=== PATIENT | male | born 1975 | race African-American/Black ===

== ENCOUNTER 2016-02-15 09:38 | Emergency (ER) | payer MEDICARE, MEDICAID ==
--- NOTE | 2016-02-15 10:36 | ER Document Report ---
ED General - General Chief Complaint: Wrist Pain Stated Complaint: LEFT WRIST PAIN,TIGHTNESS IN THROAT Time seen by provider: 10:31 Mode of Arrival: Ambulatory Information source: Patient Notes: This is a 41-year-old man with a history of obstructive sleep apnea (CPAP), left wrist cyst removal (January 09), GERD, "learning disability". The patient states he's been followed by ENT in the past because of a "narrow airway " originating from problems when he was a child. Patient presents with a few complaints: First he complains of left wrist pain after this cyst removal. He states he is not been able to get into in his orthopedic doctor's office (Dr. Kumari). He denies any fever, chills, increased swelling or redness of the left wrist. He states that he is just had a lot of pain after the surgery and he ran out of medicines. The patient's next complaint is that his reflux has been worse after eating wings 3 days ago. He states that he feels like he has "tightness in his throat". He states he went to his ENT doctor's office ( [facility]) and found out that the doctor had moved. Patient also complains of nasal congestion. Patient denies any difficulty breathing, wheezing, dyspnea on exertion or chest pain. He denies any exertional fatigue, any arm pain other than the direct left wrist pain. TRAVEL OUTSIDE OF THE [place] IN LAST 30 DAYS: No - HPI Onset: Last week Onset/Duration: Gradual Quality of pain: Dull Severity: Moderate Pain Level: 2 Associated symptoms: denies: Chills, Nonproductive cough, Productive cough, Fever, Shortness of breath Exacerbated by: Denies Relieved by: Denies Similar symptoms previously: Yes Recently seen / treated by doctor: Yes - Related Data Allergies/Adverse Reactions: morphine Allergy (Intermediate, Verified 02/15/16 09:57) Facial swelling diphenhydramine [From Benadryl] Allergy (Verified 02/15/16 09:57) divalproex sodium [From Depakote] Allergy (Verified 02/15/16 09:57) levetiracetam [From Keppra] Allergy (Verified 02/15/16 09:57) Hives meperidine [From Demerol] Allergy (Verified 02/15/16 09:57) Penicillins Allergy (Verified 02/15/16 09:57) red dye Allergy (Verified 02/15/16 09:57) yellow dye Allergy (Verified 02/15/16 09:57) pine Allergy (Uncoded 02/15/16 09:57) Past Medical History - General Information source: Patient - Social History Smoking Status: Current Every Day Smoker Cigarette use (# per day): No Chew tobacco use (# tins/day): No Frequency of alcohol use: Occasional Drug Abuse: None Lives with: Family Family History: None - adopted Patient has suicidal ideation: No Patient has homicidal ideation: No - Past Medical History Cardiac Medical History: Denies: Hx Coronary Artery Disease, Hx Heart Attack, Hx Hypertension Pulmonary Medical History: Reports: Hx Pneumonia - INFANT X7 Denies: Hx Asthma, Hx Bronchitis, Hx COPD Neurological Medical History: Reports: Hx Migraine. Denies: Hx Cerebrovascular Accident, Hx Seizures - CONVULSIONS DISORDER GI Medical History: Reports: Hx Gastroesophageal Reflux Disease. Denies: Hx Hepatitis, Hx Hiatal Hernia, Hx Ulcer Musculoskeltal Medical History: Denies Hx Arthritis, Reports Hx Musculoskeletal Trauma Psychiatric Medical History: Reports: Hx Depression Infectious Medical History: Denies: Hx Hepatitis Past Surgical History: Reports: Hx Orthopedic Surgery - left foot, left wrist, ganglion cyst. Denies: Hx Open Heart Surgery, Hx Pacemaker - Immunizations Immunizations up to date: Yes Hx Diphtheria, Pertussis, Tetanus Vaccination: Yes Review of Systems - Review of Systems Constitutional: See HPI EENT: See HPI Cardiovascular: No symptoms reported Respiratory: No symptoms reported Gastrointestinal: See HPI Genitourinary: No symptoms reported Male Genitourinary: No symptoms reported Musculoskeletal: See HPI Skin: No symptoms reported Hematologic/Lymphatic: No symptoms reported Neurological/Psychological: No symptoms reported Physical Exam - Vital signs Vitals: Temp Pulse Resp BP Pulse Ox 97.9 F 65 18 111/71 99 02/15/16 09:58 02/15/16 09:58 02/15/16 09:58 02/15/16 09:58 02/15/16 09:58 Notes: Physical exam: GENERAL: 41-year-old man, alert and oriented 3, on the phone and discussion when I enter the room: He does not appear in any significant distress. He appears comfortable. He is pleasant and cooperative. HEAD: Atraumatic, normocephalic. EYES: Pupils equal round and reactive to light, extraocular movements intact, sclera anicteric, conjunctiva are normal. ENT: Nares with some congestion, oropharynx clear without exudates. There is no obvious swelling in the back of the throat. There is no trismus. Moist mucous membranes. NECK: No stridor. Normal range of motion, supple without lymphadenopathy or JVD. LUNGS: Breath sounds clear to auscultation bilaterally and equal. No wheezes rales or rhonchi. HEART: Regular rate and rhythm without murmurs, rubs or gallops. ABDOMEN: Soft, nontender, normoactive bowel sounds. No guarding, no rebound. No masses appreciated. EXTREMITIES: Normal range of motion, no pitting or edema. No clubbing or cyanosis. Left wrist scar dorsally is dry and intact, fully healed. There is no erythema or significant swelling or crepitus over the area. NEUROLOGICAL: Cranial nerves II through XII grossly intact. Normal speech, normal gait. PSYCH: Normal mood, normal affect. SKIN: Warm, Dry, normal turgor, no rashes or lesions noted. Course - Re-evaluation Re-evalutation: 02/15/16 10:36 Plan: Regarding the left wrist: I'll give him some short-term pain medicine until he can get into the office of the orthopedic doctor. Regarding the reflux: He is already on omeprazole and I have advised him to follow-up with dad and he is going to avoid spicy foods. He will follow-up with his primary care doctor (Dr. Andrew). Regarding his congestion: I will prescribe him some Flonase - Vital Signs Vital signs: Temp Pulse Resp BP Pulse Ox 98.0 F 59 L 14 113/68 100 02/15/16 11:11 02/15/16 11:11 02/15/16 11:11 02/15/16 11:11 02/15/16 11:11 Discharge - Discharge Clinical Impression: left wrist pain, congestion, reflux Condition: Stable Disposition: HOME, SELF-CARE Instructions: Oral Narcotic Medication ([facility]) Additional Instructions: Recommendations: #1 take the pain medicine as needed. Follow-up with your orthopedic doctor as planned. #2 take the Flonase as prescribed. Follow-up with a new ENT doctor. Here is the number of an ENT office. They do have an office in town: Call the office in [place] to get an appointment here in [facility]. [facility] [address] [place] [address] Toll Free: #3 avoid fried fatty foods, and spicy foods. #4 follow-up with your primary care doctor in the next few days. Return to the emergency room for any worsening reflux, worsening throat symptoms , worsening wrist pain, fever, chills, nausea vomiting. Prescriptions: Hydrocodone/Acetaminophen [[place] 5-325 mg Tablet] 1 tab PO Q6HP PRN #25 tablet PRN Reason: Fluticasone Propionate [Flonase Nasal [place] 50 Mcg/[place] 16 gm] 1 spray NASL Q12 #1 inhaler Referrals: GUERO BRIAN MD [Primary Care Provider] - Follow up as needed
[2016-02-15 11:16] VITALS: BP 113/68
== END 2016-02-15 11:15 | disposition home or self-care (01) ==
LOC: ER 09:38
DX: M25.532 Pain in left wrist (principal); R09.81 Nasal congestion; K21.9 Gastro-esophageal reflux disease without esophagitis; G47.33 Obstructive sleep apnea (adult) (pediatric); F17.210 Nicotine dependence, cigarettes, uncomplicated
CPT/HCPCS: 99283

== ENCOUNTER → 2016-03-14 | Outpatient (CLI) | payer MEDICARE, MEDICAID | LOC: OD 08:52 | PROVIDERS: ATTEND Internal Medicine | DX: R07.9 Chest pain, unspecified (principal) | CPT/HCPCS: 71020; 71120 ==

== ENCOUNTER 2016-05-01 08:30 | Emergency (ER) | payer MEDICARE, MEDICAID ==
[2016-05-01 08:38] VITALS: BP 114/75
--- NOTE | 2016-05-01 09:06 | ER Document Report ---
HPI - HPI Patient complains to provider of: dental pain Onset: Other - 4 days Onset/Duration: Persistent Quality of pain: Achy Pain Level: 4 Context: Patient reports a four-day history of dental pain. Patient denies any fever or significant facial swelling. Patient states he does have an appointment in 2 weeks with the dentist. Associated Symptoms: Other - Dental pain Exacerbated by: Denies Relieved by: Denies Similar symptoms previously: Yes Recently seen / treated by doctor: No - ROS ROS below otherwise negative: Yes Systems Reviewed and Negative: Yes All other systems reviewed and negative - CONSTITUTIONAL Constitutional: DENIES: Fever, Chills - EENT Notes: Dental pain - RESPIRATORY Respiratory: DENIES: Trouble Breathing, Coughing - GASTROINTESTINAL Gastrointestinal: DENIES: Nausea, Patient vomiting - REPRODUCTIVE Reproductive: DENIES: : - MUSCULOSKELETAL Musculoskeletal: DENIES: Back Pain, Neck Pain - DERM Skin Color: Normal Skin Problems: None Past Medical History - General Information source: Patient - Social History Smoking Status: Current Every Day Smoker Chew tobacco use (# tins/day): No Frequency of alcohol use: None Drug Abuse: None Occupation: none Family History: None - adopted Patient has suicidal ideation: No Patient has homicidal ideation: No - Past Medical History Cardiac Medical History: Denies: Hx Coronary Artery Disease, Hx Heart Attack, Hx Hypertension Pulmonary Medical History: Reports: Hx Pneumonia - X7 Denies: Hx Asthma, Hx Bronchitis, Hx COPD Neurological Medical History: Reports: Hx Migraine. Denies: Hx Cerebrovascular Accident, Hx Seizures - CONVULSIONS DISORDER Renal/ Medical History: Denies: Hx Peritoneal Dialysis GI Medical History: Reports: Hx Gastroesophageal Reflux Disease. Denies: Hx Hepatitis, Hx Hiatal Hernia, Hx Ulcer Musculoskeltal Medical History: Denies Hx Arthritis, Reports Hx Musculoskeletal Trauma Psychiatric Medical History: Reports: Hx Depression Infectious Medical History: Denies: Hx Hepatitis Past Surgical History: Reports: Hx Orthopedic Surgery - left foot, left wrist, ganglion cyst - Immunizations Immunizations up to date: Yes Hx Diphtheria, Pertussis, Tetanus Vaccination: Yes Vertical Provider Document - CONSTITUTIONAL Agree With Documented VS: Yes Exam Limitations: No Limitations General Appearance: WD/WN, No Apparent Distress - INFECTION CONTROL TRAVEL OUTSIDE OF THE [place] IN LAST 30 DAYS: No - HEENT HEENT: Atraumatic, Normocephalic. negative: Pharyngeal Exudate, Pharyngeal Tenderness, Pharyngeal Erythema, Tympanic Membrane Red, Tympanic Membrane Bulging Mouth Diagram: 1 - Dental decay with fracture, no gingival swelling, no trismus, no concern for abscess - NECK Neck: Normal Inspection, Supple, Other - No sublingual or submental swelling. negative: Lymphadenopathy-Left, Lymphadenopathy-Right - RESPIRATORY Respiratory: Breath Sounds Normal, No Respiratory Distress, Chest Non-Tender O2 Sat by Pulse Oximetry: 100 - CARDIOVASCULAR Cardiovascular: Regular Rate, Regular Rhythm, No Murmur - BACK Back: Normal Inspection - MUSCULOSKELETAL/EXTREMETIES Musculoskeletal/Extremeties: MAEW - NEURO Level of Consciousness: Awake, Alert, Appropriate Motor/Sensory: No Motor Deficit - DERM Integumentary: Warm, Dry, No Rash Course - Vital Signs Vital signs: Temp Pulse Resp BP Pulse Ox 97.9 F 63 14 114/75 100 05/01/16 08:37 05/01/16 08:37 05/01/16 08:37 05/01/16 08:37 05/01/16 08:37 Discharge - Discharge Clinical Impression: Toothache Condition: Stable Disposition: HOME, SELF-CARE Instructions: Oral Narcotic Medication ([facility]), Clindamycin ([facility]), Toothache ([facility] ) Additional Instructions: Return immediately for any new or worsening symptoms Followup with your dental care provider, call tomorrow to make a followup appointment Prescriptions: Clindamycin HCl [Cleocin 300 mg Capsule] 300 mg PO TID #21 capsule Hydrocodone/Acetaminophen [[place] 5-325 Tablet] 1 each PO Q4 PRN #12 tablet PRN Reason: Referrals: [facility] [Provider Group] - Follow up as needed
== END 2016-05-01 09:13 | disposition home or self-care (01) ==
LOC: ER 08:30
DX: K08.9 Disorder of teeth and supporting structures, unspecified (principal); F17.200 Nicotine dependence, unspecified, uncomplicated; K21.9 Gastro-esophageal reflux disease without esophagitis
CPT/HCPCS: 99282

== ENCOUNTER → 2016-05-23 | Outpatient (CLI) | payer MEDICARE, MEDICAID | LOC: RAD 18:48 | PROVIDERS: ATTEND Specialist | DX: R56.9 Unspecified convulsions (principal) | CPT/HCPCS: 70553; A9577 ==

== ENCOUNTER 2016-08-05 12:49 | Emergency (ER) | payer MEDICARE, MEDICAID ==
[2016-08-05 13:09] VITALS: BP 105/56
== END 2016-08-05 13:10 | disposition left against medical advice (07) ==
LOC: ER 12:49
DX: Z53.21 Procedure and treatment not carried out due to patient leaving prior to being seen by health care provider (principal)

== ENCOUNTER 2016-10-18 08:35 | Emergency (ER) | payer MEDICARE, MEDICAID ==
[2016-10-18] MEDS ORDERED: CLINDAMYCIN HCL 150 MG CAPSULE PO ONE (09:32)
[2016-10-18] MEDS ORDERED: ACETAMINOPHEN 325 MG TABLET PO ONE (09:32)
--- NOTE | 2016-10-18 09:35 | ER Document Report ---
HPI - HPI Patient complains to provider of: Dental pain Onset: Other Onset/Duration: Persistent - 3 days Quality of pain: Achy Pain Level: 4 Context: Patient complains of dental pain to left upper jaw for the past 3 days. Patient states he has an appointment in 8 days to see the dentist. Patient denies any fever or facial swelling. Associated Symptoms: Headache, Other - Dental pain Exacerbated by: Denies Relieved by: Denies Similar symptoms previously: Yes Recently seen / treated by doctor: No - ROS ROS below otherwise negative: Yes Systems Reviewed and Negative: Yes All other systems reviewed and negative - CONSTITUTIONAL Constitutional: DENIES: Fever, Chills - EENT Notes: Dental pain - NEURO Neurology: REPORTS: Headache - RESPIRATORY Respiratory: DENIES: Coughing - GASTROINTESTINAL Gastrointestinal: DENIES: Nausea, Patient vomiting - REPRODUCTIVE Reproductive: DENIES: : - MUSCULOSKELETAL Musculoskeletal: DENIES: Back Pain, Neck Pain - DERM Skin Color: Normal Skin Problems: None Past Medical History - General Information source: Patient - Social History Smoking Status: Current Every Day Smoker Frequency of alcohol use: Rare Drug Abuse: None Occupation: None Family History: None - adopted Patient has suicidal ideation: No Patient has homicidal ideation: No - Past Medical History Cardiac Medical History: Denies: Hx Coronary Artery Disease, Hx Heart Attack, Hx Hypertension Pulmonary Medical History: Reports: Hx Pneumonia - X7 Denies: Hx Asthma, Hx Bronchitis, Hx COPD Neurological Medical History: Reports: Hx Migraine. Denies: Hx Cerebrovascular Accident, Hx Seizures - CONVULSIONS DISORDER Renal/ Medical History: Denies: Hx Peritoneal Dialysis GI Medical History: Reports: Hx Gastroesophageal Reflux Disease. Denies: Hx Hepatitis, Hx Hiatal Hernia, Hx Ulcer Musculoskeltal Medical History: Denies Hx Arthritis, Reports Hx Musculoskeletal Trauma Psychiatric Medical History: Reports: Hx Depression Infectious Medical History: Denies: Hx Hepatitis Past Surgical History: Reports: Hx Orthopedic Surgery - left foot, left wrist, ganglion cyst. Denies: Hx Open Heart Surgery, Hx Pacemaker - Immunizations Immunizations up to date: Yes Hx Diphtheria, Pertussis, Tetanus Vaccination: Yes Vertical Provider Document - CONSTITUTIONAL Agree With Documented VS: Yes Exam Limitations: No Limitations General Appearance: WD/WN, No Apparent Distress - INFECTION CONTROL TRAVEL OUTSIDE OF THE [place] IN LAST 30 DAYS: No - HEENT HEENT: Atraumatic, Normocephalic. negative: Pharyngeal Exudate, Pharyngeal Tenderness, Pharyngeal Erythema, Tympanic Membrane Red, Tympanic Membrane Bulging Mouth Diagram: 1 - Tenderness, mild swelling to gingiva, no drainable abscess, no trismus, no sublingual or submental swelling - NECK Neck: Normal Inspection, Supple. negative: Lymphadenopathy-Left, Lymphadenopathy-Right Notes: No meningismus - RESPIRATORY Respiratory: Breath Sounds Normal, No Respiratory Distress - CARDIOVASCULAR Cardiovascular: Regular Rate, Regular Rhythm, No Murmur - MUSCULOSKELETAL/EXTREMETIES Musculoskeletal/Extremeties: MAEW - NEURO Level of Consciousness: Awake, Alert, Appropriate Motor/Sensory: No Motor Deficit - DERM Integumentary: Warm, Dry, No Rash Discharge - Discharge Clinical Impression: Toothache Condition: Stable Disposition: HOME, SELF-CARE Instructions: Anti-Inflammatory Medication ([facility]), Clindamycin ([facility]), Toothache ([facility]) Additional Instructions: Return immediately for any new or worsening symptoms Followup with your primary care provider, call tomorrow to make a followup appointment Follow-up with your dental care provider, call today for an appointment Prescriptions: Clindamycin HCl [Cleocin 300 mg Capsule] 300 mg PO TID #21 capsule Naproxen [Naprosyn 250 Nmg Tablet] 1 tab PO BID #14 tablet Referrals: [facility] [Provider Group] - Follow up as needed GUERO BRIAN MD [Primary Care Provider] - Follow up as needed
[2016-10-18 09:52] VITALS: BP 110/65
== END 2016-10-18 09:52 | disposition home or self-care (01) ==
LOC: ER 08:35
DX: K08.89 Other specified disorders of teeth and supporting structures (principal); R68.84 Jaw pain; F17.200 Nicotine dependence, unspecified, uncomplicated
CPT/HCPCS: 99282; A9270 ×2

== ENCOUNTER 2016-10-24 08:24 | Emergency (ER) | payer MEDICARE, MEDICAID ==
--- NOTE | 2016-10-24 08:50 | ER Document Report ---
ED Hand/Wrist Injury - General Mode of Arrival: Ambulatory Information source: Patient TRAVEL OUTSIDE OF THE [place] IN LAST 30 DAYS: No - HPI Injury to: Wrist - left Onset: This morning Where: Home Timing: Still present - General Chief Complaint: Wrist Pain Stated Complaint: WRIST PAIN Time Seen by Provider: 10/24/16 08:34 Notes: Patient is a 41 year old male who presents to the ED with complaints of left wrist pain secondary to bumping it this morning. Patient states that he had a ganglion cyst removed on 01/10/2016 and has had issues ever since. Patient states he has a follow up with his surgeon on Saturday (10/31/16) to discuss why he is still having problems with it. (ZORA LIZ) - Related Data Allergies/Adverse Reactions: morphine Allergy (Intermediate, Verified 10/24/16 08:27) Facial swelling diphenhydramine [From Benadryl] Allergy (Verified 10/24/16 08:27) divalproex sodium [From Depakote] Allergy (Verified 10/24/16 08:27) levetiracetam [From Keppra] Allergy (Verified 10/24/16 08:27) Hives meperidine [From Demerol] Allergy (Verified 10/24/16 08:27) Penicillins Allergy (Verified 10/24/16 08:27) red dye Allergy (Verified 10/24/16 08:27) yellow dye Allergy (Verified 10/24/16 08:27) pine Allergy (Uncoded 10/24/16 08:27) Past Medical History - General Information source: Patient - Social History Smoking Status: Current Some Day Smoker Cigarette use (# per day): Yes - 3 Chew tobacco use (# tins/day): No Frequency of alcohol use: Occasional Drug Abuse: None Family History: None - adopted - Past Medical History Cardiac Medical History: Denies: Hx Coronary Artery Disease, Hx Heart Attack, Hx Hypertension Pulmonary Medical History: Reports: Hx Pneumonia - INFANT X7 Denies: Hx Asthma, Hx Bronchitis, Hx COPD Neurological Medical History: Reports: Hx Migraine. Denies: Hx Cerebrovascular Accident. Comment Only: Hx Seizures - CONVULSIONS DISORDER Renal/ Medical History: Denies: Hx Peritoneal Dialysis GI Medical History: Reports: Hx Gastroesophageal Reflux Disease. Denies: Hx Hepatitis, Hx Hiatal Hernia, Hx Ulcer Musculoskeltal Medical History: Denies Hx Arthritis, Reports Hx Musculoskeletal Trauma Psychiatric Medical History: Reports: Hx Depression Infectious Medical History: Denies: Hx Hepatitis Past Surgical History: Reports: Hx Orthopedic Surgery - left foot, left wrist, ganglion cyst. Denies: Hx Open Heart Surgery, Hx Pacemaker - Immunizations Immunizations up to date: Yes Hx Diphtheria, Pertussis, Tetanus Vaccination: Yes Review of Systems - Review of Systems Constitutional: No symptoms reported EENT: No symptoms reported Cardiovascular: No symptoms reported Respiratory: No symptoms reported Gastrointestinal: No symptoms reported Genitourinary: No symptoms reported Male Genitourinary: No symptoms reported Musculoskeletal: See HPI, Joint pain - left wrist Skin: No symptoms reported Hematologic/Lymphatic: No symptoms reported Neurological/Psychological: No symptoms reported Physical Exam - General General appearance: Appears well, Alert, Other - talks like mouth is full of cotton, could be due to dental pain that he was seen in the ED for recently In distress: None - HEENT Head: Normocephalic, Atraumatic Eyes: Normal Extraocular movements intact: Yes Pupils: PERRL - Respiratory Respiratory status: No respiratory distress - Cardiovascular Rhythm: Regular - Abdominal Inspection: Normal Distension: No distension - Back Back: Normal - Extremities General upper extremity: Other - left wrist has keloid over old incision site, that is tender,tender more on tendons to the ulnar side of keloid, tender to palpate left wrist, tender to flex left wrist General lower extremity: Normal inspection, Normal ROM - Neurological Neuro grossly intact: Yes - Psychological Associated symptoms: Normal affect, Normal mood - Skin Skin Temperature: Warm Skin Moisture: Dry Skin Color: Normal - Vital signs Vitals: Temp Pulse Resp BP Pulse Ox 98.7 F 72 16 122/78 99 10/24/16 08:28 10/24/16 08:28 10/24/16 08:28 10/24/16 08:28 10/24/16 08:28 - Vital Signs Vital signs: Temp Pulse Resp BP Pulse Ox 98.7 F 72 16 122/78 99 10/24/16 08:28 10/24/16 08:28 10/24/16 08:28 10/24/16 08:28 10/24/16 08:28 Discharge - Discharge Clinical Impression: Contusion of left wrist Qualifiers: Encounter type: initial encounter Qualified Code(s): S60.212A - Contusion of left wrist, initial encounter Condition: Stable Disposition: HOME, SELF-CARE Additional Instructions: You have contused or crushed the extensor tendons on your left dorsal wrist. You should wear the splint to protect the wrist and prevent stretching of the tendons. You should elevate your hand above the heart all the time. You should use ice packs to the involved area off and on today. Continue the Naprosyn you were prescribed last week, if you run out you can buy Aleve [id number] which is the same medication. Follow-up with your orthopedic surgeon as you have planned. Scribe Attestation: 10/24/16 08:55 I personally performed the services described in the documentation, reviewed and edited the documentation which was dictated to the scribe in my presence, and it accurately records my words and actions. (SANDRA MAE) Scribe Documentation - Scribe Written by Farrukh:: farrukh Sousa, 10/24/2016, 0856 acting as scribe for :: Chuy
[2016-10-24] MEDS ORDERED: HYDROCODONE/ACETAMINOPHEN 5-325 MG 6 TAB/DSPK PO PRN (08:51)
[2016-10-24 09:13] VITALS: BP 120/75
== END 2016-10-24 09:13 | disposition home or self-care (01) ==
LOC: ER 08:24
DX: S60.212A Contusion of left wrist, initial encounter (principal); M25.532 Pain in left wrist; Z98.890 Other specified postprocedural states; F17.210 Nicotine dependence, cigarettes, uncomplicated; W22.8XXA Striking against or struck by other objects, initial encounter
CPT/HCPCS: 99283; L3908; A9270

== ENCOUNTER 2016-11-26 15:43 | Emergency (ER) | payer MEDICARE, MEDICAID ==
[2016-11-26] MEDS ORDERED: NORMAL SALINE 1000 ML 1,000 ML IV ONE (16:36)
--- NOTE | 2016-11-26 16:38 | ER Document Report ---
ED Medical Screen (RME) - General Chief Complaint: Abdominal Pain Stated Complaint: ABDOMINAL PAIN Time Seen by Provider: 11/26/16 16:35 Notes: Patient states he sees gastroenterology every couple of months for irritable bowel syndrome. Today when he saw them they felt that he may have appendicitis so he was referred to the emergency department. He has had right lower quadrant pain for 3 days with some decreased appetite. Some nausea but no vomiting or diarrhea. TRAVEL OUTSIDE OF THE [place] IN LAST 30 DAYS: No - Related Data Allergies/Adverse Reactions: morphine Allergy (Intermediate, Verified 11/26/16 15:48) Facial swelling diphenhydramine [From Benadryl] Allergy (Verified 11/26/16 15:48) divalproex sodium [From Depakote] Allergy (Verified 11/26/16 15:48) levetiracetam [From Keppra] Allergy (Verified 11/26/16 15:48) Hives meperidine [From Demerol] Allergy (Verified 11/26/16 15:48) Penicillins Allergy (Verified 11/26/16 15:48) red dye Allergy (Verified 11/26/16 15:48) yellow dye Allergy (Verified 11/26/16 15:48) pine Allergy (Uncoded 11/26/16 15:48) Past Medical History - Past Medical History Cardiac Medical History: Denies: Hx Coronary Artery Disease, Hx Heart Attack, Hx Hypertension Pulmonary Medical History: Reports: Hx Pneumonia - X7 Denies: Hx Asthma, Hx Bronchitis, Hx COPD Neurological Medical History: Reports: Hx Migraine. Denies: Hx Cerebrovascular Accident. Comment Only: Hx Seizures - CONVULSIONS DISORDER Renal/ Medical History: Denies: Hx Peritoneal Dialysis GI Medical History: Reports: Hx Gastroesophageal Reflux Disease. Denies: Hx Hepatitis, Hx Hiatal Hernia, Hx Ulcer Musculoskeltal Medical History: Denies Hx Arthritis, Reports Hx Musculoskeletal Trauma Psychiatric Medical History: Reports: Hx Depression Infectious Medical History: Denies: Hx Hepatitis Past Surgical History: Reports: Hx Orthopedic Surgery - left foot, left wrist, ganglion cyst. Denies: Hx Open Heart Surgery, Hx Pacemaker - Immunizations Immunizations up to date: Yes Hx Diphtheria, Pertussis, Tetanus Vaccination: Yes Physical Exam - Vital signs Vitals: Temp Pulse Resp BP Pulse Ox 98.1 F 83 20 115/70 95 11/26/16 15:48 10/16/17 15:48 11/26/16 15:48 11/26/16 15:48 11/26/16 15:48 Course - Vital Signs Vital signs: Temp Pulse Resp BP Pulse Ox 98.1 F 83 20 115/70 95 11/26/16 15:48 11/26/16 15:48 11/26/16 15:48 11/26/16 15:48 11/26/16 15:48
[2016-11-26 17:39] LABS: ABSOLUTE BASOPHILS # (AUTO) 0.1 10^3/uL (0.0-0.2); ABSOLUTE EOSINOPHILS # (AUTO) 0.1 10^3/uL (0.0-0.6); ABSOLUTE LYMPHOCYTES (AUTO) 1.9 10^3/uL (0.5-4.7); ABSOLUTE MONOCYTES (AUTO) 0.7 10^3/uL (0.1-1.4); ABSOLUTE NEUT (AUTO) 4.9 10^3/uL (1.7-8.2); BASOPHILS % (AUTO) 1.3 % (0-2); EOSINOPHILS % (AUTO) 1.4 % (0-6); HEMATOCRIT 47.3 % (37.9-51.0); HEMOGLOBIN 16.2 g/dL (13.5-17.0); HGB HCT DIFFERENCE 1.3; LYMPHOCYTES % (AUTO) 24.3 % (13-45); MEAN CORPUSCULAR HEMOGLOBIN 28.8 pg (27.0-33.4); MEAN CORPUSCULAR HGB CONC 34.3 g/dL (32.0-36.0); MEAN CORPUSCULAR VOLUME 84 fl (80-97); MONOCYTES % (AUTO) 8.9 % (3-13); RED BLOOD COUNT 5.65 10^6/uL (4.35-5.55); RED CELL DISTRIBUTION WIDTH 13.8 % (11.5-14.0); SEGMENTED NEUTROPHILS % (AUTO) 64.1 % (42-78); WHITE BLOOD COUNT 7.6 10^3/uL (4.0-10.5)
[2016-11-26 17:45] LABS: APPEARANCE,URINE CLEAR; BILIRUBIN,URINE NEGATIVE (NEGATIVE); GLUCOSE, URINE NEGATIVE (NEGATIVE); KETONES,URINE NEGATIVE (NEGATIVE); LEUKOCYTE ESTERASE,URINE NEGATIVE (NEGATIVE); NITRITE,URINE NEGATIVE (NEGATIVE); PROTEIN,URINE NEGATIVE (NEGATIVE); URINE SPECIFIC GRAVITY 1.011; UROBILINOGEN,URINE NEGATIVE mg/dL (<2.0)
[2016-11-26 17:55] LABS: ALANINE AMINOTRANSFERASE 60 U/L (21-72); ALBUMIN 4.8 g/dL (3.5-5.0); ALKALINE PHOSPHATASE 100 U/L (38-126); ANION GAP 12 (5-19); ASPARTATE AMINO TRANSFERASE 31 U/L (17-59); BILIRUBIN,DIRECT 0.3 mg/dL (0.0-0.4); BILIRUBIN,TOTAL 0.9 mg/dL (0.2-1.3); BLOOD UREA NITROGEN 14 mg/dL (7-20); CALCIUM 9.8 mg/dL (8.4-10.2); CARBON DIOXIDE 39 mmol/L (22-30); CHLORIDE 91 mmol/L (98-107); CREATININE RESULT 1.11 mg/dL (0.52-1.25); GLUCOSE 82 mg/dL (75-110); LIPASE 97.2 U/L (23-300); SODIUM 141.8 mmol/L (137-145); TOTAL PROTEIN 9.2 g/dL (6.3-8.2)
[2016-11-26 18:08] LABS: POTASSIUM 2.9 mmol/L (3.6-5.0)
--- NOTE | 2016-11-26 19:47 | RADIOLOGY REPORT (SQ) ---
EXAM DESCRIPTION: CT ABD/PELVIS NO ORAL OR IV COMPLETED DATE/TIME: 11/26/2016 6:33 pm REASON FOR STUDY: pain COMPARISON: None. TECHNIQUE: CT scan of the abdomen and pelvis performed without intravenous or oral contrast. Images reviewed with lung, soft tissue, and bone windows. Reconstructed coronal and sagittal MPR images revi ewed. All images stored on PACS. All CT scanners at this facility use dose modulation, iterative reconstruction, and/or weight based d osing when appropriate to reduce radiation dose to as low as reasonably achievable (ALARA). [facility]: Dose Right [facility]: CareDose [facility]: Dose Right [facility]: Teradose 4D [facility]: Smart [employer] RADIATION DOSE: Up-to-date CT equipment and radiation dose reduction techniques were employed. CTDIv ol: 7.7 mGy. DLP: 408 mGy-cm.mGy. LIMITATIONS: None. FINDINGS: LOWER CHEST: No significant findings. No nodules or infiltrates. NON-CONTRASTED LIVER, SPLEEN, ADRENALS: Evaluation limited by lack of IV contrast. No identified sign ificant masses. PANCREAS: No masses. No peripancreatic inflammatory changes. GALLBLADDER: No identified stones by CT criteria. No inflammatory changes to suggest cholecystitis. RIGHT KIDNEY AND URETER: No suspicious masses. Assessment limited by lack of IV contrast. No signif icant calcifications. No hydronephrosis or hydroureter. LEFT KIDNEY AND URETER: No suspicious masses. Assessment limited by lack of IV contrast. No signifi cant calcifications. No hydronephrosis or hydroureter. AORTA AND RETROPERITONEUM: No aneurysm. No retroperitoneal masses or adenopathy. BOWEL AND PERITONEAL CAVITY: No obvious masses or inflammatory changes. No free fluid. APPENDIX: Normal. PELVIS, BLADDER, AND ABDOMINAL WALL:No abnormal masses. No free fluid. Bladder normal. BONES: No significant findings. OTHER: No other significant finding. IMPRESSION: NO ACUTE PROCESS IN THE ABDOMEN OR PELVIS. COMMENT: Quality ID # [id number]: Final reports with documentation of one or more dose reduction techniques (e.g., Automated exposure control, adjustment of the mA and/or kV according to patient size, use of iterative reconstruction technique) TECHNICAL DOCUMENTATION: JOB ID: [id number] [employer]- All Rights Reserved
--- NOTE | 2016-11-26 20:11 | ER Document Report ---
ED General - General Chief Complaint: Abdominal Pain Stated Complaint: ABDOMINAL PAIN Time Seen by Provider: 11/26/16 16:35 Mode of Arrival: Ambulatory Information source: Patient Notes: Patient was referred from gastroenterology office. Patient complains of 3 days of bilateral lower quadrant abdominal pain. Nothing makes it better or worse. It is moderate and crampy in nature. He has had decreased appetite. Some nausea. No significant change of stools or urine. The pain does not radiate. It is crampy in nature. TRAVEL OUTSIDE OF THE [place] IN LAST 30 DAYS: No - Related Data Allergies/Adverse Reactions: morphine Allergy (Intermediate, Verified 11/26/16 15:48) Facial swelling diphenhydramine [From Benadryl] Allergy (Verified 11/26/16 15:48) divalproex sodium [From Depakote] Allergy (Verified 11/26/16 15:48) levetiracetam [From Keppra] Allergy (Verified 11/26/16 15:48) Hives meperidine [From Demerol] Allergy (Verified 11/26/16 15:48) Penicillins Allergy (Verified 11/26/16 15:48) red dye Allergy (Verified 11/26/16 15:48) yellow dye Allergy (Verified 11/26/16 15:48) pine Allergy (Uncoded 11/26/16 15:48) Past Medical History - General Information source: Patient - Social History Smoking Status: Current Every Day Smoker Frequency of alcohol use: None Drug Abuse: None Family History: None - adopted Patient has suicidal ideation: No - Past Medical History Cardiac Medical History: Denies: Hx Coronary Artery Disease, Hx Heart Attack, Hx Hypertension Pulmonary Medical History: Reports: Hx Pneumonia - INFANT X7 Denies: Hx Asthma, Hx Bronchitis, Hx COPD Neurological Medical History: Reports: Hx Migraine. Denies: Hx Cerebrovascular Accident. Comment Only: Hx Seizures - CONVULSIONS DISORDER Renal/ Medical History: Denies: Hx Peritoneal Dialysis GI Medical History: Reports: Hx Gastroesophageal Reflux Disease. Denies: Hx Hepatitis, Hx Hiatal Hernia, Hx Ulcer Musculoskeltal Medical History: Denies Hx Arthritis, Reports Hx Musculoskeletal Trauma Psychiatric Medical History: Reports: Hx Depression Infectious Medical History: Denies: Hx Hepatitis Past Surgical History: Reports: Hx Orthopedic Surgery - left foot, left wrist, ganglion cyst. Denies: Hx Open Heart Surgery, Hx Pacemaker - Immunizations Immunizations up to date: Yes Hx Diphtheria, Pertussis, Tetanus Vaccination: Yes Review of Systems - Review of Systems Constitutional: Malaise. denies: Chills, Fever Cardiovascular: denies: Chest pain, Palpitations Respiratory: denies: Cough, Short of breath -: Yes All other systems reviewed and negative Physical Exam - Vital signs Vitals: Temp Pulse Resp BP Pulse Ox 98.1 F 83 20 115/70 95 11/26/16 15:48 11/26/16 15:48 11/26/16 15:48 11/26/16 15:48 11/26/16 15:48 Interpretation: Normal - General General appearance: Appears well, Alert - HEENT Head: Normocephalic, Atraumatic Eyes: Normal Pupils: PERRL - Respiratory Respiratory status: No respiratory distress Chest status: Nontender Breath sounds: Normal Chest palpation: Normal - Cardiovascular Rhythm: Regular Heart sounds: Normal auscultation Murmur: No - Abdominal Inspection: Normal Distension: No distension Bowel sounds: Normal Tenderness: Nontender Organomegaly: No organomegaly - Back Back: Normal, Nontender - Extremities General upper extremity: Normal inspection, Nontender, Normal color, Normal ROM , Normal temperature General lower extremity: Normal inspection, Nontender, Normal color, Normal ROM , Normal temperature, Normal weight bearing. No: Kilo's sign - Neurological Neuro grossly intact: Yes Cognition: Normal Orientation: AAOx4 Kristine Coma Scale Eye Opening: Spontaneous [place] Coma Scale Verbal: Oriented Kristine Coma Scale Motor: Obeys Commands [place] Coma Scale Total: 15 Speech: Normal Motor strength normal: LUE, RUE, LLE, RLE Sensory: Normal - Psychological Associated symptoms: Normal affect, Normal mood - Skin Skin Temperature: Warm Skin Moisture: Dry Skin Color: Normal Course - Re-evaluation Re-evalutation: 11/26/16 20:09 Patient at this time is very nontoxic and cooperative. Exam of the abdomen shows no severe rebound or guarding. Patient's laboratories were reviewed. All of the abnormalities are chronic. I hesitate to give the patient any potassium since he has an allergy to yellow dye. I am going to recommend that he eat substances high in potassium such as bananas and strawberries. - Vital Signs Vital signs: Temp Pulse Resp BP Pulse Ox 98.1 F 83 20 115/70 95 11/26/16 15:48 11/26/16 15:48 11/26/16 15:48 11/26/16 15:48 11/26/16 15:48 - Laboratory Result Diagrams: 11/26/16 17:30 11/26/16 17:30 Laboratory results interpreted by me: 11/26/16 11/26/16 17:30 17:30 RBC 5.65 H Potassium 2.9 L* Chloride 91 L Carbon Dioxide 39 H Total Protein 9.2 H - Diagnostic Test Radiology reviewed: Image reviewed, Reports reviewed - CT scan of the abdomen shows no evidence of acute pathology Discharge - Discharge Clinical Impression: Acute abdominal pain Condition: Stable Disposition: HOME, SELF-CARE Instructions: Abdominal Pain ([facility]) Additional Instructions: Please follow-up with your program dir as scheduled. Your potassium is low please increase your intake of foods high in potassium such as bananas and strawberries. He appear mildly dehydrated pleased in increase your fluid consumption.
[2016-11-26 20:24] VITALS: BP 120/50
== END 2016-11-26 20:34 | disposition home or self-care (01) ==
LOC: ER 15:43
DX: R10.31 Right lower quadrant pain (principal); R10.32 Left lower quadrant pain; R63.0 Anorexia; F17.200 Nicotine dependence, unspecified, uncomplicated
CPT/HCPCS: 99284; 96360; 36415; 83690; 85025; 80053; 81001; 74176; J7030

== ENCOUNTER 2016-12-27 08:39 | Emergency (ER) | payer MEDICARE, MEDICAID ==
[2016-12-27 08:45] VITALS: BP 113/72
[2016-12-27] MEDS ORDERED: LIDOCAINE 2% VISCOUS SOLN 20 ML UDCUP PO ONE (09:12)
[2016-12-27] MEDS ORDERED: CLINDAMYCIN HCL 150 MG CAPSULE PO ONE (09:12)
[2016-12-27] MEDS ORDERED: IBUPROFEN 800 MG TABLET PO ONE (09:13)
--- NOTE | 2016-12-27 09:18 | ER Document Report ---
ED Oral Problem - General Chief Complaint: Toothache Stated Complaint: MOUTH PAIN Time Seen by Provider: 12/27/16 08:55 Mode of Arrival: Ambulatory Information source: Patient Notes: 41-year-old male presents to ED for dental pain is causing pain down his shoulder. Tooth #13 is tender to touch causing pain up through his shoulder. TRAVEL OUTSIDE OF THE [place].S. IN LAST 30 DAYS: No - HPI Patient complains to provider of: Toothache Onset: Yesterday Onset: Gradual Quality of pain: Sharp Severity: Moderate Associated symptoms: Toothache Worsened by: Cold Similar symptoms previously: Yes Recently seen / treated by doctor/dentist: Yes - Related Data Allergies/Adverse Reactions: morphine Allergy (Intermediate, Verified 12/27/16 08:46) Facial swelling diphenhydramine [From Benadryl] Allergy (Verified 12/27/16 08:46) divalproex sodium [From Depakote] Allergy (Verified 12/27/16 08:46) levetiracetam [From Keppra] Allergy (Verified 12/27/16 08:46) Hives meperidine [From Demerol] Allergy (Verified 12/27/16 08:46) Penicillins Allergy (Verified 12/27/16 08:46) red dye Allergy (Verified 12/27/16 08:46) yellow dye Allergy (Verified 12/27/16 08:46) pine Allergy (Uncoded 11/26/16 15:48) Past Medical History - General Information source: Patient - Social History Smoking Status: Current Every Day Smoker Cigarette use (# per day): Yes - 2-3 cigarettes a day Chew tobacco use (# tins/day): No Smoking Education Provided: Yes - Less than 2 minutes Frequency of alcohol use: Occasional Drug Abuse: None Family History: None - adopted Patient has suicidal ideation: No Patient has homicidal ideation: No - Past Medical History Cardiac Medical History: Reports: None Pulmonary Medical History: Reports: Hx Pneumonia - INFANT X7 EENT Medical History: Reports: None Neurological Medical History: Reports: Hx Migraine, Hx Seizures - CONVULSIONS DISORDER Endocrine Medical History: Reports: None Renal/ Medical History: Reports: None GI Medical History: Reports: None, Hx Gastroesophageal Reflux Disease. Denies: Hx Hepatitis, Hx Hiatal Hernia, Hx Ulcer Musculoskeltal Medical History: Reports None, Denies Hx Arthritis, Reports Hx Musculoskeletal Trauma Skin Medical History: Reports None Psychiatric Medical History: Reports: Hx Depression Traumatic Medical History: Reports: None Infectious Medical History: Reports: None. Denies: Hx Hepatitis Past Surgical History: Reports: Hx Orthopedic Surgery - left foot, left wrist, ganglion cyst - Immunizations Immunizations up to date: Yes Hx Diphtheria, Pertussis, Tetanus Vaccination: Yes Review of Systems - Review of Systems Constitutional: No symptoms reported EENT: Mouth pain, Dental problem Cardiovascular: No symptoms reported Respiratory: No symptoms reported Gastrointestinal: No symptoms reported Genitourinary: No symptoms reported Male Genitourinary: No symptoms reported Musculoskeletal: No symptoms reported Skin: No symptoms reported Hematologic/Lymphatic: No symptoms reported Neurological/Psychological: No symptoms reported Physical Exam - Vital signs Vitals: Temp Pulse Resp BP Pulse Ox 98.6 F 85 16 113/72 100 12/27/16 08:43 12/27/16 08:43 12/27/16 08:43 12/27/16 08:43 12/27/16 08:43 Interpretation: Normal - General General appearance: Appears well, Alert - HEENT Head: Normocephalic, Atraumatic Eyes: Normal Pupils: PERRL Teeth diagram: 1 - Tender nest to palpation mild swelling around the tooth no abscess noted will treat with clindamycin ibuprofen and viscous lidocaine - Respiratory Respiratory status: No respiratory distress Chest status: Nontender Breath sounds: Normal Chest palpation: Normal - Cardiovascular Rhythm: Regular Heart sounds: Normal auscultation Murmur: No - Abdominal Inspection: Normal Distension: No distension Bowel sounds: Normal Tenderness: Nontender Organomegaly: No organomegaly - Back Back: Normal, Nontender - Extremities General upper extremity: Normal inspection, Nontender, Normal color, Normal ROM , Normal temperature General lower extremity: Normal inspection, Nontender, Normal color, Normal ROM , Normal temperature, Normal weight bearing. No: Kilo's sign - Neurological Neuro grossly intact: Yes Cognition: Normal Orientation: AAOx4 [place] Coma Scale Eye Opening: Spontaneous Kristine Coma Scale Verbal: Oriented Kristine Coma Scale Motor: Obeys Commands Kristine Coma Scale Total: 15 Speech: Normal Motor strength normal: LUE, RUE, LLE, RLE Sensory: Normal - Psychological Associated symptoms: Normal affect, Normal mood - Skin Skin Temperature: Warm Skin Moisture: Dry Skin Color: Normal Course - Re-evaluation Re-evalutation: 12/27/16 09:23 Patient treated in the ED for infected tooth with clindamycin viscous lidocaine and ibuprofen and patient discharged home with clindamycin and ibuprofen. - Vital Signs Vital signs: Temp Pulse Resp BP Pulse Ox 98.6 F 85 16 113/72 100 12/27/16 08:43 12/27/16 08:43 12/27/16 08:43 12/27/16 08:43 12/27/16 08:43 Discharge - Discharge Clinical Impression: Pain due to dental caries Condition: Stable Disposition: HOME, SELF-CARE Additional Instructions: TOOTHACHE: Your pain is due to dental decay. The tooth must be repaired in order for you to feel better. You will, therefore, be referred to a dentist. We do not have dentists on the staff at [facility]. Severe swelling or drainage around a tooth usually means a dental abscess. This also requires evaluation and treatment by the dentist, but antibiotics may be prescribed while awaiting dental treatment. You should be rechecked immediately if you develop major swelling of the face, increasing pain, a lump in the jaw or gums, headache, difficulty swallowing, or fever. CLINDAMYCIN: You have been given a prescription for the antibiotic clindamycin. It is often prescribed for infections in the mouth, such as dental infections or abscesses, and for skin infections due to MRSA. It's important that you take all the medication, unless instructed otherwise by your physician. Failure to complete the entire course can result in relapse of your condition. Common side effects of antibiotics include nausea, intestinal cramping, or diarrhea. Women may develop vaginal yeast infections, and babies can get yeast (thrush) in the mouth following the use of antibiotics. Contact your physician if you develop significant side effects from this medication. Allergy to this antibiotic can result in hives, wheezing, faintness, or itching. If symptoms of allergy occur, stop the medication and call the doctor. Please apply you viscous lidocaine to your gum area every 3-4 hours as needed for dental pain. FOLLOW-UP CARE: You have been referred for follow-up care to the dentists listed below. Call the dentists office for an appointment as you were instructed or within the next two days. If you experience worsening or a significant change in your symptoms, notify the physician immediately or return to the Emergency Department at any time for re-evaluation. [facility] [address] [place], [place] Amari mornings, by appointment [facility] [address] [place] [address] [facility] [address] [facility] [address] [facility] [address] [facility] [address] [email or web address] [address] [place] [address] ([phone] Saturday- 8:00am to 5:00 pm Will see patients from other [facility]. Charges based on income and family size and accepts Medicare, Medicaid, and Insurances Will pull molars [facility] [id number] Hours of Operation 8:00 am - 4:30 pm weekdays The following dental offices accept Medicaid: [facility] Dr. Pandya Dr. Garcia Dr. Reeves Dr. Dee Lázaro Toth [place], and [facility] oral surgery Dr. Aj ([place]) Dr. Mitchell ([place]) [facility] Drs. Castelan and Fly ([place]) Dr. Medley ([place]) [facility] Dr. Khoury ([place]) Drs. Matthew and ([place]) Medicaid Care Line Prescriptions: Ibuprofen 600 mg PO Q8HP PRN #20 tablet PRN Reason: Clindamycin HCl 300 mg PO Q6 #28 capsule Forms: Smoking Cessation Education
== END 2016-12-27 09:35 | disposition home or self-care (01) ==
LOC: ER 08:39
DX: K02.9 Dental caries, unspecified (principal); F17.210 Nicotine dependence, cigarettes, uncomplicated; Z88.6 Allergy status to analgesic agent; Z88.0 Allergy status to penicillin
CPT/HCPCS: 99282; A9270 ×2; J3490

== ENCOUNTER → 2017-02-06 | Outpatient (CLI) | payer MEDICARE, MEDICAID ==
--- NOTE | 2017-02-06 13:22 | RADIOLOGY REPORT (SQ) ---
EXAM DESCRIPTION: MRI LT LOWER JOINT WITHOUT COMPLETED DATE/TIME: 02/06/2017 1:02 pm REASON FOR STUDY: PAIN IN LEFT ANKLE AND JOINTS OF LEFT FOOT M25.572 PAIN IN LEFT ANKLE AND JOINTS OF LEFT FOOT COMPARISON: None. TECHNIQUE: Left ankle images acquired and stored on PACS. Multiplanar images include fat sensitive s equences as T1, fluid sensitive sequences as FST2/STIR, cartilage sensitive sequences as FSPD, and gr adient echo sequences. LIMITATIONS: None. FINDINGS: BONE MARROW: No occult fracture or suspicious bone lesion. EFFUSIONS: No subtalar or tibiotalar effusions. No loose bodies. OSSEOUS ARTICULATIONS: Normal tibiotalar, subtalar, talonavicular and calcaneocuboid joints. TALAR DOME AND TIBIAL PLAFOND: Normal cartilage. No osteochondral defect. ACHILLES TENDON: Intact without partial or full-thickness tear. No adjacent bursal fluid or edema. TIBIALIS ANTERIOR TENDON: Intact without edema at the 1st MT attachment. TIBIALIS POSTERIOR TENDON: Normal morphology and no edema at the navicular attachment. No tendon zhu th fluid. FLEXOR HALLUCIS LONGUS AND FLEXOR DIGITORUM TENDONS: Normal morphology and no tendon sheath fluid. No edema of the os trigonum. PERONEUS LONGUS AND BREVIS TENDON: Normal morphology and no tendon sheath fluid. No subluxation. ATFL, CFL, PTFL: Relatively attenuated anterior talofibular ligament, possibly previously torn. Othe r lateral ligaments are intact. DELTOID LIGAMENT: Visualized components intact. TARSAL TUNNEL: No masses. No muscle atrophy. SINUS TARSI: Fat signal in the sinus tarsi replaced with intermediate signal diffusely. Mild bone ed rolan regionally, likely mild erosions. Suggestive of sinus tarsi syndrome. PLANTAR FASCIA: No signal alteration or tear. ADJACENT SOFT TISSUES: No masses. OTHER: No other significant finding. IMPRESSION: 1. Findings suggesting sinus tarsi syndrome. No acute abnormality detected. TECHNICAL DOCUMENTATION: JOB ID: [id number] [employer]- All Rights Reserved
== END ==
LOC: RAD 11:19
PROVIDERS: ATTEND Internal Medicine
DX: M25.572 Pain in left ankle and joints of left foot (principal)

== ENCOUNTER 2017-03-06 08:26 | Emergency (ER) | payer MEDICARE, MEDICAID ==
[2017-03-06 09:54] VITALS: BP 102/72
--- NOTE | 2017-03-06 10:24 | ER Document Report ---
ED General - General Chief Complaint: Headache >24 hrs old Stated Complaint: HEADACHE Time Seen by Provider: 03/06/17 10:19 Notes: Patient planes of bilateral anterior nasal pain. It is sharp. It is worse when touched and better if left alone. Does not radiate. He denies any trauma. He denies any sinusitis or upper respiratory symptoms. He also states he is having a migraine headache. He states he does have a history of migraines and Vicodin has helped these in the past. He states [id number] medications do not help. He has some nausea but no vomiting or diarrhea. No rashes. No fevers. TRAVEL OUTSIDE OF THE [place] IN LAST 30 DAYS: No - Related Data Allergies/Adverse Reactions: morphine Allergy (Intermediate, Verified 03/06/17 08:28) Facial swelling diphenhydramine [From Benadryl] Allergy (Verified 03/06/17 08:28) divalproex sodium [From Depakote] Allergy (Verified 03/06/17 08:28) levetiracetam [From Keppra] Allergy (Verified 03/06/17 08:28) Hives meperidine [From Demerol] Allergy (Verified 03/06/17 08:28) Penicillins Allergy (Verified 03/06/17 08:28) red dye Allergy (Verified 03/06/17 08:28) yellow dye Allergy (Verified 03/06/17 08:28) pine Allergy (Uncoded 03/06/17 08:28) Past Medical History - Social History Smoking Status: Current Some Day Smoker Chew tobacco use (# tins/day): No Frequency of alcohol use: Occasional Drug Abuse: None Family History: None - adopted Patient has suicidal ideation: No Patient has homicidal ideation: No - Past Medical History Cardiac Medical History: Denies: Hx Coronary Artery Disease, Hx Heart Attack, Hx Hypertension Pulmonary Medical History: Reports: Hx Pneumonia - INFANT X7 Denies: Hx Asthma, Hx Bronchitis, Hx COPD Neurological Medical History: Reports: Hx Migraine, Hx Seizures - CONVULSIONS DISORDER. Denies: Hx Cerebrovascular Accident Renal/ Medical History: Denies: Hx Peritoneal Dialysis GI Medical History: Reports: Hx Gastroesophageal Reflux Disease. Denies: Hx Hepatitis, Hx Hiatal Hernia, Hx Ulcer Musculoskeltal Medical History: Denies Hx Arthritis, Reports Hx Musculoskeletal Trauma Psychiatric Medical History: Reports: Hx Depression Infectious Medical History: Denies: Hx Hepatitis Past Surgical History: Reports: Hx Orthopedic Surgery - left foot, left wrist, ganglion cyst. Denies: Hx Open Heart Surgery, Hx Pacemaker - Immunizations Immunizations up to date: Yes Hx Diphtheria, Pertussis, Tetanus Vaccination: Yes Review of Systems - Review of Systems Constitutional: denies: Chills, Fever Cardiovascular: denies: Chest pain, Palpitations Respiratory: denies: Cough, Short of breath -: Yes All other systems reviewed and negative Physical Exam - Vital signs Vitals: Temp Pulse Resp BP Pulse Ox 98.4 F 67 17 102/72 96 03/06/17 08:30 03/06/17 08:30 03/06/17 08:30 03/06/17 08:30 03/06/17 08:30 Interpretation: Normal - General General appearance: Appears well, Alert - HEENT Head: Normocephalic, Atraumatic Eyes: Normal Pupils: PERRL Sinus: Normal Nasal: Swelling, Other - Bridge of the nose is tender to palpation but inspection is unremarkable. Mouth/Lips: Normal Mucous membranes: Moist Pharynx: Normal Neck: Normal - Respiratory Respiratory status: No respiratory distress Chest status: Nontender Breath sounds: Normal Chest palpation: Normal - Cardiovascular Rhythm: Regular Heart sounds: Normal auscultation Murmur: No - Abdominal Inspection: Normal Distension: No distension Bowel sounds: Normal Tenderness: Nontender Organomegaly: No organomegaly - Back Back: Normal, Nontender - Extremities General upper extremity: Normal inspection, Nontender, Normal color, Normal ROM , Normal temperature General lower extremity: Normal inspection, Nontender, Normal color, Normal ROM , Normal temperature, Normal weight bearing. No: Kilo's sign - Neurological Neuro grossly intact: Yes Cognition: Normal Orientation: AAOx4 Kristine Coma Scale Eye Opening: Spontaneous Kristine Coma Scale Verbal: Oriented Kristine Coma Scale Motor: Obeys Commands [place] Coma Scale Total: 15 Speech: Normal Cranial nerves: Normal Cerebellar coordination: Normal Motor strength normal: LUE, RUE, LLE, RLE Additional motor exam normals: Equal guest services representative Sensory: Normal - Psychological Associated symptoms: Normal affect, Normal mood - Skin Skin Temperature: Warm Skin Moisture: Dry Skin Color: Normal Course - Vital Signs Vital signs: Temp Pulse Resp BP Pulse Ox 98.4 F 67 17 102/72 96 03/06/17 08:30 03/06/17 08:30 03/06/17 08:30 03/06/17 08:30 03/06/17 08:30 Discharge - Discharge Clinical Impression: Migraine headache Qualifiers: Migraine type: unspecified Status migrainosus presence: with status migrainosus Intractability: intractable Qualified Code(s): G43.911 - Migraine, unspecified, intractable, with status migrainosus Condition: Stable Disposition: HOME, SELF-CARE Instructions: Migraine Headache ([facility]) Additional Instructions: Please call Dr. Brian as soon as possible to arrange follow-up. Prescriptions: Hydrocodone/Acetaminophen [[place] 5-325 mg Tablet] 1 tab PO Q6 PRN 4 Days #12 tablet PRN Reason: Forms: Return to Work Referrals: GUERO BRIAN MD [ACTIVE STAFF] - Follow up tomorrow
== END 2017-03-06 10:49 | disposition home or self-care (01) ==
LOC: ER 08:26
DX: J34.89 Other specified disorders of nose and nasal sinuses (principal); G43.911 Migraine, unspecified, intractable, with status migrainosus; R11.0 Nausea; F17.200 Nicotine dependence, unspecified, uncomplicated; Z88.5 Allergy status to narcotic agent; Z88.8 Allergy status to other drugs, medicaments and biological substances; Z88.0 Allergy status to penicillin; Z91.048 Other nonmedicinal substance allergy status
CPT/HCPCS: 99283

== ENCOUNTER → 2017-04-04 | Outpatient (CLI) | payer MEDICARE, MEDICAID ==
--- NOTE | 2017-04-04 14:30 | RADIOLOGY REPORT (SQ) ---
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 NUMBER OF VIEWS: Three views. TECHNIQUE: AP, lateral and oblique radiographic images acquired of the right and left foot. LIMITATIONS: None. FINDINGS: RIGHT MINERALIZATION: Normal. BONES: No acute fracture or dislocation. No worrisome bone lesions. JOINTS: No significant joint space narrowing or bony spurring. No malalignment. Flattening of the p lantar arch on lateral view SOFT TISSUES: No soft tissue swelling. No foreign body. OTHER: No other significant finding. LEFT MINERALIZATION: Normal. BONES: No acute fracture or dislocation. No worrisome bone lesions. JOINTS: Kienbock disease 2nd metatarsal head with flattening of the articular surface and mild bony s purring. Very mild hallux valgus deformity left great toe at the 1st metatarsophalangeal joint. Flat tening of the plantar arch on lateral view SOFT TISSUES: No soft tissue swelling. No foreign body. OTHER: No other significant finding. 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
== END ==
LOC: OD 10:35
PROVIDERS: ATTEND Podiatrist Foot & Ankle Surgery
DX: Q66.9 Congenital deformity of feet, unspecified (principal)

== ENCOUNTER → 2017-04-09 | Outpatient (CLI) | payer MEDICARE, MEDICAID ==
--- NOTE | 2017-04-09 17:51 | RADIOLOGY REPORT (SQ) ---
EXAM DESCRIPTION: CT BONE LENGTH COMPLETED DATE/TIME: 04/09/2017 4:46 pm REASON FOR STUDY: Congenital shortening of unspecified lower limb Q72.819 CONGENITAL SHORTENING OF UNSPECIFIED LOWER LIMB COMPARISON: None. TECHNIQUE: CT scanogram of the bilateral lower extremities is performed including pelvis to ankles. Measurements of femur, tibia, and entire lower extremities performed by the radiologist and saved to PACS. All CT scanners at this facility use dose modulation, iterative reconstruction, and/or weight based d osing when appropriate to reduce radiation dose to as low as reasonably achievable (ALARA). [facility]: Dose Right [facility]: CareDose [facility]: Dose Right [facility]: Teradose 4D [facility]: [employer] RADIATION DOSE: 0.01 MGy. LIMITATIONS: None. FINDINGS: RIGHT: FEMUR: 48.2 cm. TIBIA: 40.5 cm. TOTAL RIGHT LOWER EXTREMITY LENGTH: 89.1 cm. LEFT: FEMUR: 48.2 cm. TIBIA: 40.5 cm. TOTAL LEFT LOWER EXTREMITY LENGTH: 89.1 cm. IMPRESSION: LEG LENGTH MEASUREMENTS DETAILED ABOVE. TECHNICAL DOCUMENTATION: JOB ID: [id number] Quality ID # [id number]: Final reports with documentation of one or more dose reduction techniques (e.g., Au tomated exposure control, adjustment of the mA and/or kV according to patient size, use of iterative reconstruction technique) 2010 [employer]- All Rights Reserved Reading location - IP/workstation name: [email or web address]
== END ==
LOC: RAD 16:31
PROVIDERS: ATTEND Podiatrist Foot & Ankle Surgery
DX: Q72.819 Congenital shortening of unspecified lower limb (principal)
CPT/HCPCS: 77073

== ENCOUNTER → 2017-04-25 | Outpatient (CLI) | payer MEDICARE, MEDICAID ==
--- NOTE | 2017-04-25 10:17 | RADIOLOGY REPORT (SQ) ---
EXAM DESCRIPTION: ANKLE LEFT COMPLETE COMPLETED DATE/TIME: 04/25/2017 9:50 am REASON FOR STUDY: PRIMARY OSTEOARTHRITIS, LEFT ANKLE AND FOOT M19.072 PRIMARY OSTEOARTHRITIS, LEFT ANKLE AND FOOT COMPARISON: None. NUMBER OF VIEWS: Three views. TECHNIQUE: AP, lateral, and oblique with weight bearing radiographic images acquired of the left ank le. LIMITATIONS: None. FINDINGS: MINERALIZATION: Normal. BONES: No acute fracture or dislocation. No worrisome bone lesions. No significant osteophytes. JOINTS: No joint space narrowing. No effusions. SOFT TISSUES: No soft tissue swelling. No foreign body. OTHER: No other significant finding. IMPRESSION: NO SIGNIFICANT FINDING IN THE LEFT ANKLE. NO EXPLANATION FOR PAIN. TECHNICAL DOCUMENTATION: JOB ID: [id number] [employer]- All Rights Reserved Reading location - IP/workstation name: [facility]-[email or web address]
== END ==
LOC: OD 09:26
PROVIDERS: ATTEND Podiatrist Foot & Ankle Surgery
DX: M19.072 Primary osteoarthritis, left ankle and foot (principal)

== ENCOUNTER → 2017-06-13 | Outpatient (CLI) | payer MEDICARE, MEDICAID ==
--- NOTE | 2017-06-13 12:19 | RADIOLOGY REPORT (SQ) ---
EXAM DESCRIPTION: FOOT LEFT COMPLETE COMPLETED DATE/TIME: 06/13/2017 10:24 am REASON FOR STUDY: M84.375D STRESS FRACTURE, LEFT FOOT, SUBS FOR FX W ROUTN HEAL M84.375D STRESS FRA CTURE, LEFT FOOT, SUBS FOR FX W ROUTN HEA COMPARISON: None. NUMBER OF VIEWS: Three views. TECHNIQUE: AP, lateral and oblique radiographic images acquired of the left foot. LIMITATIONS: None. FINDINGS: MINERALIZATION: Normal. BONES: No acute fracture or dislocation. No worrisome bone lesions. JOINTS: No effusions. SOFT TISSUES: No soft tissue swelling. No foreign body. OTHER: No other significant finding. IMPRESSION: NEGATIVE STUDY OF THE LEFT FOOT. NO RADIOGRAPHIC EVIDENCE OF ACUTE INJURY. TECHNICAL DOCUMENTATION: JOB ID: [id number] [employer]- All Rights Reserved Reading location - IP/workstation name: [email or web address]
== END ==
LOC: RAD 10:01
PROVIDERS: ATTEND Podiatrist Foot & Ankle Surgery
DX: M84.375D Stress fracture, left foot, subsequent encounter for fracture with routine healing (principal)

== ENCOUNTER 2017-07-08 10:49 | Emergency (ER) | payer MEDICARE, MEDICAID ==
--- NOTE | 2017-07-08 11:01 | ER Document Report ---
HPI - HPI Pain Level: 4 - REPRODUCTIVE Reproductive: DENIES: : Past Medical History - Social History Family History: None - adopted - Past Medical History Cardiac Medical History: Denies: Hx Coronary Artery Disease, Hx Heart Attack, Hx Hypertension Pulmonary Medical History: Reports: Hx Pneumonia - X7 Denies: Hx Asthma, Hx Bronchitis, Hx COPD Neurological Medical History: Reports: Hx Migraine, Hx Seizures - CONVULSIONS DISORDER. Denies: Hx Cerebrovascular Accident Renal/ Medical History: Denies: Hx Peritoneal Dialysis GI Medical History: Reports: Hx Gastroesophageal Reflux Disease. Denies: Hx Hepatitis, Hx Hiatal Hernia, Hx Ulcer Musculoskeltal Medical History: Denies Hx Arthritis, Reports Hx Musculoskeletal Trauma Psychiatric Medical History: Reports: Hx Depression Infectious Medical History: Denies: Hx Hepatitis Past Surgical History: Reports: Hx Orthopedic Surgery - left foot, left wrist, ganglion cyst. Denies: Hx Open Heart Surgery, Hx Pacemaker - Immunizations Immunizations up to date: Yes Hx Diphtheria, Pertussis, Tetanus Vaccination: Yes Vertical Provider Document - INFECTION CONTROL TRAVEL OUTSIDE OF THE [place] IN LAST 30 DAYS: No
--- NOTE | 2017-07-08 11:16 | ER Document Report ---
ED Medical Screen (RME) - General Chief Complaint: Mouth Problem Stated Complaint: LEFT SIDE OF MOUTH PAIN Time Seen by Provider: 07/08/17 11:00 Mode of Arrival: Ambulatory Information source: Patient Notes: 42-year-old male diagnosed with lupus last week comes into the emergency room today complaining of left ankle pain and swelling without injury, headache, and left sided face pain. He does have a history of headaches and left ankle pain in the past. TRAVEL OUTSIDE OF THE [place] IN LAST 30 DAYS: No - Related Data Allergies/Adverse Reactions: morphine Allergy (Intermediate, Verified 07/08/17 10:49) Facial swelling diphenhydramine [From Benadryl] Allergy (Verified 07/08/17 10:49) divalproex sodium [From Depakote] Allergy (Verified 07/08/17 10:49) levetiracetam [From Keppra] Allergy (Verified 07/08/17 10:49) Hives meperidine [From Demerol] Allergy (Verified 07/08/17 10:49) Penicillins Allergy (Verified 07/08/17 10:49) red dye Allergy (Verified 07/08/17 10:49) yellow dye Allergy (Verified 07/08/17 10:49) pine Allergy (Uncoded 07/08/17 10:49) Past Medical History - Social History Chew tobacco use (# tins/day): No Frequency of alcohol use: Rare Drug Abuse: None - Past Medical History Cardiac Medical History: Denies: Hx Coronary Artery Disease, Hx Heart Attack, Hx Hypertension Pulmonary Medical History: Reports: Hx Pneumonia - X7 Denies: Hx Asthma, Hx Bronchitis, Hx COPD Neurological Medical History: Reports: Hx Migraine, Hx Seizures - CONVULSIONS DISORDER. Denies: Hx Cerebrovascular Accident Renal/ Medical History: Denies: Hx Peritoneal Dialysis GI Medical History: Reports: Hx Gastroesophageal Reflux Disease. Denies: Hx Hepatitis, Hx Hiatal Hernia, Hx Ulcer Musculoskeltal Medical History: Denies Hx Arthritis, Reports Hx Musculoskeletal Trauma Psychiatric Medical History: Reports: Hx Depression Infectious Medical History: Denies: Hx Hepatitis Past Surgical History: Reports: Hx Orthopedic Surgery - left foot, left wrist, ganglion cyst. Denies: Hx Open Heart Surgery, Hx Pacemaker - Immunizations Immunizations up to date: Yes Hx Diphtheria, Pertussis, Tetanus Vaccination: Yes Physical Exam - Vital signs Vitals: Temp Pulse Resp BP Pulse Ox 98.3 F 68 18 107/75 100 07/08/17 11:06 07/08/17 11:06 07/08/17 11:06 07/08/17 11:06 07/08/17 11:06 Course - Vital Signs Vital signs: Temp Pulse Resp BP Pulse Ox 98.3 F 68 18 107/75 100 07/08/17 11:06 07/08/17 11:06 07/08/17 11:06 07/08/17 11:06 07/08/17 11:06 Doctor's Discharge - Discharge Referrals: GUERO BRIAN MD [Primary Care Provider] - Follow up as needed
[2017-07-08] MEDS ORDERED: ACETAMINOPHEN 325 MG TABLET PO ONE (11:17)
--- NOTE | 2017-07-08 12:07 | RADIOLOGY REPORT (SQ) ---
EXAM DESCRIPTION: CT HEAD WITHOUT COMPLETED DATE/TIME: 07/08/2017 11:48 am REASON FOR STUDY: headache COMPARISON: MR 05/23/2016 CT 09/30/2013 TECHNIQUE: Axial images acquired through the brain without intravenous contrast. Images reviewed wi th bone, brain and subdural windows. Additional sagittal and coronal reconstructions were generated. Images stored on PACS. All CT scanners at this facility use dose modulation, iterative reconstruction, and/or weight based d osing when appropriate to reduce radiation dose to as low as reasonably achievable (ALARA). [facility]: Dose Right [facility]: CareDose [facility]: Dose Right [facility]: Teradose 4D [facility]: [employer] RADIATION DOSE: CT Rad equipment meets quality standard of care and radiation dose reduction techniq ues were employed. CTDIvol: 53.2 mGy. DLP: 1097 mGy-cm. mGy. LIMITATIONS: None. FINDINGS: VENTRICLES: Normal size and contour. CEREBRUM: No masses. No hemorrhage. No midline shift. No evidence for acute infarction. Normal gra y/white matter differentiation. No areas of low density in the white matter. CEREBELLUM: No masses. No hemorrhage. No alteration of density. No evidence for acute infarction. EXTRAAXIAL SPACES: No fluid collections. No masses. ORBITS AND GLOBE: No intra- or extraconal masses. Normal contour of globe without masses. CALVARIUM: No fracture. PARANASAL SINUSES: No fluid or mucosal thickening. SOFT TISSUES: No mass or hematoma. OTHER: No other significant finding. IMPRESSION: NORMAL BRAIN CT WITHOUT CONTRAST. EVIDENCE OF ACUTE STROKE: NO. COMMENT: Quality ID # [id number]: Final reports with documentation of one or more dose reduction techniques (e.g., Automated exposure control, adjustment of the mA and/or kV according to patient size, use of iterative reconstruction technique) TECHNICAL DOCUMENTATION: JOB ID: [id number] [employer]- All Rights Reserved Reading location - IP/workstation name: [email or web address]
--- NOTE | 2017-07-08 12:09 | RADIOLOGY REPORT (SQ) ---
EXAM DESCRIPTION: ANKLE LEFT COMPLETE COMPLETED DATE/TIME: 07/08/2017 11:43 am REASON FOR STUDY: Pain and swelling COMPARISON: 04/25/2017 NUMBER OF VIEWS: Three views. TECHNIQUE: AP, lateral, and oblique radiographic images acquired of the left ankle. LIMITATIONS: None. FINDINGS: MINERALIZATION: Normal. BONES: No acute fracture or dislocation. No worrisome bone lesions. JOINTS: No effusions. SOFT TISSUES: No soft tissue swelling. No foreign body. OTHER: No other significant finding. IMPRESSION: NEGATIVE STUDY OF THE LEFT ANKLE. NO RADIOGRAPHIC EVIDENCE OF ACUTE INJURY. TECHNICAL DOCUMENTATION: JOB ID: [id number] [employer]- All Rights Reserved Reading location - IP/workstation name: [email or web address]
--- NOTE | 2017-07-08 12:20 | ER Document Report ---
ED General - General Chief Complaint: Mouth Problem Stated Complaint: LEFT SIDE OF MOUTH PAIN Time Seen by Provider: 07/08/17 11:00 Mode of Arrival: Ambulatory Notes: Chief complaint: Left jaw pain History of complain:( obtained from----patient) 42 years old male presents today with left jaw pain over the TM joint region. He has been chewing gum for the last 2-3 days, woke up yesterday morning with pain each time he moves his jaw. Also noted some swelling in that area. Denies any fever chills or other constitutional symptoms. He states that he was diagnosed with lupus recently. With a history of bipolar disorder. Denies taking any pain medications. Onset: Gradual Duration: Last 2-3 days Severity: Mild to moderate Quality: Sharp Context: Chewing gum Exacerbating factor and relieving factors: Movement of the jaw REVIEW OF SYSTEMS: CONSTITUTIONAL : Denies fever, chills, or sweats. Denies recent illness. EENT: Denies eye, ear, throat, or mouth pain or symptoms. Denies nasal or sinus congestion or discharge. Denies throat, tongue, or mouth swelling or difficulty swallowing. CARDIOVASCULAR: Denies chest pain. Denies palpitations or racing or irregular heart beat. Denies ankle edema. RESPIRATORY: Denies cough, cold, or chest congestion. Denies shortness of breath, difficulty breathing, or wheezing. GASTROINTESTINAL: Denies distention. Denies nausea, vomiting, or diarrhea. Denies blood in vomitus, stools, or per rectum. Denies black, tarry stools. Denies constipation. GENITOURINARY: Denies difficulty urinating, painful urination, burning, frequency, blood in urine, or discharge. FEMALE GENITOURINARY: Denies vaginal bleeding, heavy or abnormal periods, irregular periods. Denies vaginal discharge or odor. MUSCULOSKELETAL: Denies back or neck pain or stiffness. Denies joint pain or swelling. SKIN: Denies rash, lesions or sores. HEMATOLOGIC : Denies easy bruising or bleeding. LYMPHATIC: Denies swollen, enlarged glands. NEUROLOGICAL: Denies confusion or altered mental status. Denies passing out or loss of consciousness. Denies dizziness or lightheadedness. Denies headache. Denies weakness or paralysis or loss of use of either side. Denies problems with gait or speech. Denies sensory loss, numbness, or tingling. Denies seizures. PSYCHIATRIC: Denies anxiety or stress. Denies depression, suicidal ideation, or homicidal ideation. ALL OTHER SYSTEMS REVIEWED AND NEGATIVE. PHYSICAL EXAMINATION: GENERAL: Well-appearing, well-nourished and in no acute distress. HEAD: Atraumatic, normocephalic. EYES: Pupils equal round and reactive to light, extraocular movements intact, conjunctiva are normal. ENT: Nares patent, oropharynx clear without exudates. Moist mucous membranes. TM joint region is extremely tender on palpation. Though he was able to open and close the jaw as well as to the lateral movement of the jaw without much discomfort. NECK: Normal range of motion, supple without lymphadenopathy LUNGS: Breath sounds clear to auscultation bilaterally and equal. No wheezes rales or rhonchi. HEART: Regular rate and rhythm without murmurs ABDOMEN: Soft, nontender, nondistended abdomen. No guarding, no rebound. No masses appreciated. Examination of genitals-deferred Musculoskeletal: Normal range of motion, no pitting or edema. No cyanosis. NEUROLOGICAL: Cranial nerves grossly intact. Normal speech, normal gait. Normal sensory, motor exams PSYCH: Normal mood, normal affect. SKIN: Warm, Dry, normal turgor, no rashes or lesions noted. Dictation was performed using [employer] voice recognition software TRAVEL OUTSIDE OF THE [place] IN LAST 30 DAYS: No - Related Data Allergies/Adverse Reactions: morphine Allergy (Intermediate, Verified 07/08/17 10:49) Facial swelling diphenhydramine [From Benadryl] Allergy (Verified 07/08/17 10:49) divalproex sodium [From Depakote] Allergy (Verified 07/08/17 10:49) levetiracetam [From Keppra] Allergy (Verified 07/08/17 10:49) Hives meperidine [From Demerol] Allergy (Verified 07/08/17 10:49) Penicillins Allergy (Verified 07/08/17 10:49) red dye Allergy (Verified 07/08/17 10:49) yellow dye Allergy (Verified 07/08/17 10:49) pine Allergy (Uncoded 07/08/17 10:49) Past Medical History - General Information source: Patient - Social History Smoking Status: Current Every Day Smoker Chew tobacco use (# tins/day): No Frequency of alcohol use: Rare Drug Abuse: None Family History: None - adopted Patient has suicidal ideation: No Patient has homicidal ideation: No - Past Medical History Cardiac Medical History: Denies: Hx Coronary Artery Disease, Hx Heart Attack, Hx Hypertension Pulmonary Medical History: Reports: Hx Pneumonia - INFANT X7 Denies: Hx Asthma, Hx Bronchitis, Hx COPD Neurological Medical History: Reports: Hx Migraine, Hx Seizures - CONVULSIONS DISORDER. Denies: Hx Cerebrovascular Accident Renal/ Medical History: Denies: Hx Peritoneal Dialysis GI Medical History: Reports: Hx Gastroesophageal Reflux Disease. Denies: Hx Hepatitis, Hx Hiatal Hernia, Hx Ulcer Musculoskeltal Medical History: Denies Hx Arthritis, Reports Hx Musculoskeletal Trauma Psychiatric Medical History: Reports: Hx Depression Infectious Medical History: Denies: Hx Hepatitis Past Surgical History: Reports: Hx Orthopedic Surgery - left foot, left wrist, ganglion cyst. Denies: Hx Open Heart Surgery, Hx Pacemaker - Immunizations Immunizations up to date: Yes Hx Diphtheria, Pertussis, Tetanus Vaccination: Yes Physical Exam - Vital signs Vitals: Temp Pulse Resp BP Pulse Ox 98.3 F 68 18 107/75 100 07/08/17 11:06 07/08/17 11:06 07/08/17 11:06 07/08/17 11:06 07/08/17 11:06 Course - Vital Signs Vital signs: Temp Pulse Resp BP Pulse Ox 97.8 F 58 L 18 116/80 99 07/08/17 13:32 07/08/17 13:32 07/08/17 11:06 07/08/17 13:32 07/08/17 13:32 Discharge - Discharge Clinical Impression: TMJ (temporomandibular joint syndrome) Condition: Fair Disposition: HOME, SELF-CARE Instructions: Temporomandibular Joint Syndrome ([facility]) Prescriptions: Hydrocodone/Acetaminophen [Vicodin 5-300 mg Tablet] 1 - 2 tab PO ASDIR PRN #15 tab PRN Reason: Hydrocodone/Acetaminophen [[place] 5-325 mg Tablet] 1 tab PO QID PRN #14 tablet PRN Reason: Naproxen 500 mg PO BID #60 tablet Referrals: GUERO BRIAN MD [Primary Care Provider] - Follow up as needed
[2017-07-08 12:24] LABS: APPEARANCE,URINE CLEAR; BILIRUBIN,URINE NEGATIVE (NEGATIVE); COLOR,URINE YELLOW; GLUCOSE, URINE NEGATIVE (NEGATIVE); KETONES,URINE NEGATIVE (NEGATIVE); LEUKOCYTE ESTERASE,URINE NEGATIVE (NEGATIVE); NITRITE,URINE NEGATIVE (NEGATIVE); PROTEIN,URINE NEGATIVE (NEGATIVE); URINE SPECIFIC GRAVITY 1.015; UROBILINOGEN,URINE NEGATIVE mg/dL (<2.0)
[2017-07-08 13:22] LABS: URINE AMPHETAMINES SCREEN NEGATIVE; URINE BARBITURATES SCREEN NEGATIVE; URINE BENZODIAZEPINES SCREEN NEGATIVE; URINE COCAINE SCREEN NEGATIVE; URINE MARIJUANA (THC) SCREEN NEGATIVE; URINE METHADONE SCREEN NEGATIVE; URINE PHENCYCLIDINE SCREEN NEGATIVE
[2017-07-08 13:37] VITALS: BP 116/80
== END 2017-07-08 13:37 | disposition home or self-care (01) ==
LOC: ER 10:49
DX: M26.609 Unspecified temporomandibular joint disorder, unspecified side (principal); K13.79 Other lesions of oral mucosa; R68.84 Jaw pain; R22.0 Localized swelling, mass and lump, head; F17.200 Nicotine dependence, unspecified, uncomplicated
CPT/HCPCS: 99284; 81001; 80307; 73610; 70450; A9270

== ENCOUNTER 2017-08-13 13:49 | Emergency (ER) | payer MEDICARE, MEDICAID ==
[2017-08-13] MEDS ORDERED: PROCHLORPERAZINE EDISYLATE INJ 10 MG/2 ML VIAL IV ONE (14:59)
[2017-08-13] MEDS ORDERED: METHYLPREDNISOLONE INJ 125 MG/2 ML SDV IV ONE (14:59)
[2017-08-13] MEDS ORDERED: NORMAL SALINE 1000 ML 1,000 ML IV ONE (14:59)
--- NOTE | 2017-08-13 15:02 | ER Document Report ---
ED Medical Screen (RME) - General Chief Complaint: Headache Stated Complaint: HEADACHE Time Seen by Provider: 08/13/17 14:53 Mode of Arrival: Ambulatory Information source: Patient Notes: 42 yr old male hx of migraines presents with continued headache with light sensitivity. pt notes he was followed at [place] for his migraines pt has hx of lupus , not on blood thinners did hit his head on a cabinet, notes chronic left leg weakness I have greeted and performed a rapid initial assessment of this patient. A comprehensive ED assessment and evaluation of the patient, analysis of test results and completion of the medical decision making process will be conducted by additional ED providers. PHYSICAL EXAMINATION: GENERAL: Well-appearing, well-nourished and in no acute distress. HEAD: Atraumatic, normocephalic. EYES: Pupils equal round extraocular movements intact, conjunctiva are normal. ENT: Nares patent NECK: Normal range of motion LUNGS: No respiratory distress Musculoskeletal: Normal range of motion NEUROLOGICAL: Normal speech, normal gait. PSYCH: Normal mood, normal affect. SKIN: Warm, Dry, normal turgor, no rashes or lesions noted. TRAVEL OUTSIDE OF THE [place] IN LAST 30 DAYS: No - Related Data Allergies/Adverse Reactions: morphine Allergy (Intermediate, Verified 08/13/17 13:50) Facial swelling diphenhydramine [From Benadryl] Allergy (Verified 08/13/17 13:50) divalproex sodium [From Depakote] Allergy (Verified 08/13/17 13:50) levetiracetam [From Keppra] Allergy (Verified 08/13/17 13:50) Hives meperidine [From Demerol] Allergy (Verified 08/13/17 13:50) Penicillins Allergy (Verified 08/13/17 13:50) red dye Allergy (Verified 08/13/17 13:50) yellow dye Allergy (Verified 08/13/17 13:50) pine Allergy (Uncoded 08/13/17 13:50) Past Medical History - Past Medical History Cardiac Medical History: Denies: Hx Coronary Artery Disease, Hx Heart Attack, Hx Hypertension Pulmonary Medical History: Reports: Hx Pneumonia - X7 Denies: Hx Asthma, Hx Bronchitis, Hx COPD Neurological Medical History: Reports: Hx Migraine, Hx Seizures - CONVULSIONS DISORDER. Denies: Hx Cerebrovascular Accident Renal/ Medical History: Denies: Hx Peritoneal Dialysis GI Medical History: Reports: Hx Gastroesophageal Reflux Disease. Denies: Hx Hepatitis, Hx Hiatal Hernia, Hx Ulcer Musculoskeltal Medical History: Denies Hx Arthritis, Reports Hx Musculoskeletal Trauma Psychiatric Medical History: Reports: Hx Depression Infectious Medical History: Denies: Hx Hepatitis Past Surgical History: Reports: Hx Orthopedic Surgery - left foot, left wrist, ganglion cyst. Denies: Hx Open Heart Surgery, Hx Pacemaker - Immunizations Immunizations up to date: Yes Hx Diphtheria, Pertussis, Tetanus Vaccination: Yes Physical Exam - Vital signs Vitals: Temp Pulse Resp BP Pulse Ox 98.6 F 81 16 115/73 100 08/13/17 13:55 08/13/17 13:55 08/13/17 13:55 08/13/17 13:55 08/13/17 13:55 Course - Vital Signs Vital signs: Temp Pulse Resp BP Pulse Ox 98.6 F 81 16 115/73 100 08/13/17 13:55 08/13/17 13:55 08/13/17 13:55 08/13/17 13:55 08/13/17 13:55 Doctor's Discharge - Discharge Referrals: GUERO BRIAN MD [Primary Care Provider] - Follow up as needed
[2017-08-13] MEDS ORDERED: PROCHLORPERAZINE MALEATE 10 MG TABLET PO ONE (15:04)
[2017-08-13] MEDS ORDERED: PREDNISONE 20 MG TABLET PO ONE (15:04)
--- NOTE | 2017-08-13 15:50 | RADIOLOGY REPORT (SQ) ---
EXAM DESCRIPTION: CT HEAD WITHOUT COMPLETED DATE/TIME: 08/13/2017 3:33 pm REASON FOR STUDY: Headache, recent head injury, chronic leg weakness COMPARISON: 07/08/2017 TECHNIQUE: Axial images acquired through the brain without intravenous contrast. Images reviewed wi th bone, brain and subdural windows. Images stored on PACS. All CT scanners at this facility use dose modulation, iterative reconstruction, and/or weight based d osing when appropriate to reduce radiation dose to as low as reasonably achievable (ALARA). [facility]: Dose Right [facility]: CareDose [facility]: Dose Right [facility]: Teradose 4D [facility]: [employer] RADIATION DOSE: CT Rad equipment meets quality standard of care and radiation dose reduction techniq ues were employed. CTDIvol: 48.6 mGy. DLP: 929 mGy-cm. mGy. LIMITATIONS: No coronal or sagittal reformatted images. FINDINGS: VENTRICLES: Normal size and contour. CEREBRUM: No masses. No hemorrhage. No midline shift. No evidence for acute infarction. Normal gra y/white matter differentiation. No areas of low density in the white matter. CEREBELLUM: No masses. No hemorrhage. No alteration of density. No evidence for acute infarction. EXTRAAXIAL SPACES: No fluid collections. No masses. ORBITS AND GLOBE: No intra- or extraconal masses. Normal contour of globe without masses. CALVARIUM: No fracture. PARANASAL SINUSES: No fluid or mucosal thickening. SOFT TISSUES: No mass or hematoma. OTHER: No other significant finding. IMPRESSION: NORMAL BRAIN CT WITHOUT CONTRAST. EVIDENCE OF ACUTE STROKE: NO. COMMENT: Quality ID # [id number]: Final reports with documentation of one or more dose reduction techniques (e.g., Automated exposure control, adjustment of the mA and/or kV according to patient size, use of iterative reconstruction technique) TECHNICAL DOCUMENTATION: JOB ID: [id number] [employer]- All Rights Reserved Reading location - IP/workstation name: [email or web address]
--- NOTE | 2017-08-13 16:25 | ER Document Report ---
Doctor's Note Notes: 08/13/17 16:24 Patient was assigned a hallway bed but left without telling anybody. I never had a chance to see the patient. Reviewed his head CT showed no acute abnormal patient eloped without telling anybody.
--- NOTE | 2017-08-13 17:01 | ER Document Report ---
ED General - General Chief Complaint: Headache Stated Complaint: HEADACHE Time Seen by Provider: 08/13/17 14:53 Mode of Arrival: Ambulatory Information source: Patient Notes: 42 yr old male presents with complaints of migraine headache and lupus flare up. pt denies any fevers or chills , denies any nausea or vomiting .p t notes this is exactly like his previous migraines, states his neurologist in [place] ran extensive testing on him and found no issues. pt admits to light sensitivity TRAVEL OUTSIDE OF THE [place] IN LAST 30 DAYS: No - HPI Onset: Other Onset/Duration: Persistent Quality of pain: Pressure Severity: Mild Pain Level: 2 Associated symptoms: Headache, Other Exacerbated by: Other - light Relieved by: Denies Similar symptoms previously: Yes Recently seen / treated by doctor: Yes - Related Data Allergies/Adverse Reactions: morphine Allergy (Intermediate, Verified 08/13/17 13:50) Facial swelling diphenhydramine [From Benadryl] Allergy (Verified 08/13/17 13:50) divalproex sodium [From Depakote] Allergy (Verified 08/13/17 13:50) levetiracetam [From Keppra] Allergy (Verified 08/13/17 13:50) Hives meperidine [From Demerol] Allergy (Verified 08/13/17 13:50) Penicillins Allergy (Verified 08/13/17 13:50) red dye Allergy (Verified 08/13/17 13:50) yellow dye Allergy (Verified 08/13/17 13:50) pine Allergy (Uncoded 08/13/17 13:50) Past Medical History - General Information source: Patient - Social History Smoking Status: Current Some Day Smoker Cigarette use (# per day): Yes Chew tobacco use (# tins/day): No Smoking Education Provided: No Frequency of alcohol use: None Drug Abuse: None Family History: None - adopted Patient has suicidal ideation: No Patient has homicidal ideation: No - Past Medical History Cardiac Medical History: Denies: Hx Coronary Artery Disease, Hx Heart Attack, Hx Hypertension Pulmonary Medical History: Reports: Hx Pneumonia - INFANT X7 Denies: Hx Asthma, Hx Bronchitis, Hx COPD Neurological Medical History: Reports: Hx Migraine, Hx Seizures - CONVULSIONS DISORDER. Denies: Hx Cerebrovascular Accident Renal/ Medical History: Denies: Hx Peritoneal Dialysis GI Medical History: Reports: Hx Gastroesophageal Reflux Disease. Denies: Hx Hepatitis, Hx Hiatal Hernia, Hx Ulcer Musculoskeltal Medical History: Denies Hx Arthritis, Reports Hx Musculoskeletal Trauma Psychiatric Medical History: Reports: Hx Depression Infectious Medical History: Denies: Hx Hepatitis Past Surgical History: Reports: Hx Orthopedic Surgery - left foot, left wrist, ganglion cyst. Denies: Hx Open Heart Surgery, Hx Pacemaker - Immunizations Immunizations up to date: Yes Hx Diphtheria, Pertussis, Tetanus Vaccination: Yes Review of Systems - Review of Systems Notes: REVIEW OF SYSTEMS: CONSTITUTIONAL : Denies fever, chills, or sweats. Denies recent illness. EENT: Denies eye, ear, throat, or mouth pain or symptoms. Denies nasal or sinus congestion or discharge. Denies throat, tongue, or mouth swelling or difficulty swallowing. CARDIOVASCULAR: Denies chest pain. Denies palpitations or racing or irregular heart beat. Denies ankle edema. RESPIRATORY: Denies cough, cold, or chest congestion. Denies shortness of breath, difficulty breathing, or wheezing. GASTROINTESTINAL: Denies abdominal pain or distention. Denies nausea, vomiting , or diarrhea. Denies blood in vomitus, stools, or per rectum. Denies black, tarry stools. Denies constipation. GENITOURINARY: Denies difficulty urinating, painful urination, burning, frequency, blood in urine, or discharge. MUSCULOSKELETAL: admits to chronic leg heaviness SKIN: Denies rash, lesions or sores. HEMATOLOGIC : Denies easy bruising or bleeding. LYMPHATIC: Denies swollen, enlarged glands. NEUROLOGICAL: admits to migraine headache PSYCHIATRIC: Denies anxiety or stress. Denies depression, suicidal ideation, or homicidal ideation. ALL OTHER SYSTEMS REVIEWED AND NEGATIVE. Dictation was performed using [employer] voice recognition software PHYSICAL EXAMINATION: GENERAL: Well-appearing, well-nourished and in no acute distress. HEAD: Atraumatic, normocephalic. EYES: Pupils equal round and reactive to light, extraocular movements intact, sclera anicteric, conjunctiva are normal. ENT: Nares patent, oropharynx clear without exudates. Moist mucous membranes. NECK: Normal range of motion, supple without lymphadenopathy LUNGS: Breath sounds clear to auscultation bilaterally and equal. No wheezes rales or rhonchi. HEART: Regular rate and rhythm without murmurs ABDOMEN: Soft, nontender, nondistended abdomen. No guarding, no rebound. No masses appreciated. Musculoskeletal: Normal range of motion, no pitting or edema. No cyanosis. NEUROLOGICAL: Cranial nerves grossly intact. Normal speech, normal gait. Normal sensory, motor exams PSYCH: Normal mood, normal affect. SKIN: Warm, Dry, normal turgor, no rashes or lesions noted. Physical Exam - Vital signs Vitals: Temp Pulse Resp BP Pulse Ox 98.6 F 81 16 115/73 100 08/13/17 13:55 08/13/17 13:55 08/13/17 13:55 08/13/17 13:55 08/13/17 13:55 Course - Re-evaluation Re-evalutation: 08/13/17 18:15 Patient's neurological exam was completely benign, and initially saw him as the pit provider, I did put him for a bed for the patient, he received oral medication at his request, his symptoms resolved and he wished to be discharged and appears he walked to the waiting room. The physician who attempted to see the patient believed he had eloped however the patient did in fact stay in the waiting room I did speak to him and he has no other complaints states he feels much better wishes to go home will discharge him at this time After performing a Medical Screening Examination, I estimate there is LOW risk for ACUTE GLAUCOMA, TEMPORAL ARTERITIS, MENINGITIS, INCRANIAL HEMORRHAGE, or ISCHEMIC STROKE thus I consider the discharge disposition reasonable. I have reevaluated this patient multiple times and no significant life threatening changes are noted. The patient and I have discussed the diagnosis and risks, and we agree with discharging home with close follow-up with the understanding that symptoms and presentations can change. We also discussed returning to the Emergency Department immediately if new or worsening symptoms occur. We have discussed the symptoms which are most concerning (e.g., changing or worsening symptoms, new numbness or weakness, vomiting, fever) that necessitate immediate return. - Vital Signs Vital signs: Temp Pulse Resp BP Pulse Ox 97.9 F 62 18 112/79 95 08/13/17 17:01 08/13/17 17:01 08/13/17 17:01 08/13/17 17:01 08/13/17 17:01 - Diagnostic Test Radiology reviewed: Reports reviewed Discharge - Discharge Clinical Impression: Migraine headache Qualifiers: Migraine type: unspecified Status migrainosus presence: without status migrainosus Intractability: not intractable Qualified Code(s): G43.909 - Migraine, unspecified, not intractable, without status migrainosus Condition: Stable Disposition: HOME, SELF-CARE Instructions: Headache ([facility]) Prescriptions: Prednisone [Deltasone 20 mg Tablet] 3 tab PO DAILY 4 Days tablet Referrals: GUERO BRIAN MD [Primary Care Provider] - Follow up as needed
[2017-08-13 17:02] VITALS: BP 112/79
== END 2017-08-13 17:02 | disposition home or self-care (01) ==
LOC: ER 13:49
DX: G43.909 Migraine, unspecified, not intractable, without status migrainosus (principal); R53.1 Weakness; Z88.6 Allergy status to analgesic agent; Z88.0 Allergy status to penicillin
CPT/HCPCS: 99284; 70450; A9270 ×2; J7512; S0183

== ENCOUNTER 2017-10-08 13:08 | Emergency (ER) | payer MEDICARE, MEDICAID ==
[2017-10-08 13:52] VITALS: BP 108/71
[2017-10-08 14:48] LABS: ABSOLUTE BASOPHILS # (AUTO) 0.1 10^3/uL (0.0-0.2); ABSOLUTE EOSINOPHILS # (AUTO) 0.1 10^3/uL (0.0-0.6); ABSOLUTE LYMPHOCYTES (AUTO) 1.6 10^3/uL (0.5-4.7); ABSOLUTE MONOCYTES (AUTO) 0.6 10^3/uL (0.1-1.4); ABSOLUTE NEUT (AUTO) 4.3 10^3/uL (1.7-8.2); BASOPHILS % (AUTO) 1.2 % (0-2); EOSINOPHILS % (AUTO) 0.8 % (0-6); HEMATOCRIT 47.5 % (37.9-51.0); HEMOGLOBIN 15.8 g/dL (13.5-17.0); LYMPHOCYTES % (AUTO) 24.1 % (13-45); MEAN CORPUSCULAR HEMOGLOBIN 28.2 pg (27.0-33.4); MEAN CORPUSCULAR HGB CONC 33.3 g/dL (32.0-36.0); MEAN CORPUSCULAR VOLUME 85 fl (80-97); MONOCYTES % (AUTO) 8.4 % (3-13); RED BLOOD COUNT 5.61 10^6/uL (4.35-5.55); RED CELL DISTRIBUTION WIDTH 13.7 % (11.5-14.0); SEGMENTED NEUTROPHILS % (AUTO) 65.5 % (42-78); TOTAL CELLS COUNTED % (AUTO) 100 %; WHITE BLOOD COUNT 6.6 10^3/uL (4.0-10.5)
[2017-10-08 14:50] LABS: APPEARANCE,URINE CLEAR; BILIRUBIN,URINE NEGATIVE (NEGATIVE); COLOR,URINE YELLOW; GLUCOSE, URINE NEGATIVE (NEGATIVE); KETONES,URINE NEGATIVE (NEGATIVE); LEUKOCYTE ESTERASE,URINE NEGATIVE (NEGATIVE); NITRITE,URINE NEGATIVE (NEGATIVE); PROTEIN,URINE NEGATIVE (NEGATIVE); URINE SPECIFIC GRAVITY 1.014; UROBILINOGEN,URINE NEGATIVE mg/dL (<2.0)
--- NOTE | 2017-10-08 15:06 | ER Document Report ---
ED General <ANDERSONMAR - Last Filed: 10/08/17 15:46> - General TRAVEL OUTSIDE OF THE [place] IN LAST 30 DAYS: No <FLORES WORLEY - Last Filed: 10/08/17 20:00> - General Chief Complaint: Psych Problem Stated Complaint: PSYCH EVAL Time Seen by Provider: 10/08/17 15:05 Notes: Patient says he is here to be helped for his mental health condition. He says he has depression and psychosis. Has been feeling very tired and weak lately. Says that he threw his mental health medications away Saturday. Has not taken any medicine since then. Denies other medical conditions. Specifically, denies diabetes, hypertension, heart disease. Says he has been under the care of [facility] locally for depression and psychotic. Patient complains about the way people talk to him. He almost sounds a little paranoid when he describes these concerns. (FLORES WORLEY) - Related Data Allergies/Adverse Reactions: morphine Allergy (Intermediate, Verified 08/13/17 13:50) Facial swelling diphenhydramine [From Benadryl] Allergy (Verified 08/13/17 13:50) divalproex sodium [From Depakote] Allergy (Verified 08/13/17 13:50) levetiracetam [From Keppra] Allergy (Verified 08/13/17 13:50) Hives meperidine [From Demerol] Allergy (Verified 08/13/17 13:50) Penicillins Allergy (Verified 08/13/17 13:50) red dye Allergy (Verified 08/13/17 13:50) yellow dye Allergy (Verified 08/13/17 13:50) pine Allergy (Uncoded 08/13/17 13:50) Past Medical History - Social History Smoking Status: Unknown if Ever Smoked Family History: None - adopted Patient has suicidal ideation: No Patient has homicidal ideation: No Pulmonary Medical History: Reports: Hx Pneumonia - X7 Neurological Medical History: Reports: Hx Migraine, Hx Seizures - CONVULSIONS DISORDER GI Medical History: Reports: Hx Gastroesophageal Reflux Disease Musculoskeletal Medical History: Reports Hx Musculoskeletal Trauma Psychiatric Medical History: Reports: Hx Depression - PTSD Infectious Medical History: Denies: Hx Hepatitis Past Surgical History: Reports: Hx Orthopedic Surgery - left foot, left wrist, ganglion cyst. Denies: Hx Open Heart Surgery, Hx Pacemaker - Immunizations Immunizations up to date: Yes Hx Diphtheria, Pertussis, Tetanus Vaccination: Yes <FLORES WORLEY - Last Filed: 10/08/17 20:00> Review of Systems <MAR ANDERSON - Last Filed: 10/08/17 15:46> <BRUNILDAFLORES - Last Filed: 10/08/17 20:00> - Review of Systems Notes: REVIEW OF SYSTEMS: CONSTITUTIONAL : Denies fever. EENT: Denies eye, ear, nose or mouth or throat pain or other symptoms. CARDIOVASCULAR: Denies chest pain. RESPIRATORY: Denies cough, chest congestion, or shortness of breath. GASTROINTESTINAL: Denies abdominal pain or nausea, vomiting, or diarrhea. GENITOURINARY: Denies difficulty or painful urinating, urinary frequency, blood in urine. MUSCULOSKELETAL: Denies back or neck pain. Denies joint pain or swelling. SKIN: Denies rash or skin lesions. NEUROLOGICAL: Denies LOC or altered mental status. Denies headache. Denies sensory loss or motor deficits. ALL OTHER SYSTEMS REVIEWED AND NEGATIVE. (FLORES WORLEY) Physical Exam <MAR ANDERSON - Last Filed: 10/08/17 15:46> - Vital signs Interpretation: Normal <BRUNILDAFLORES - Last Filed: 10/08/17 20:00> - Vital signs Vitals: Temp Pulse Resp BP Pulse Ox 98.8 F 63 18 108/71 100 10/08/17 13:51 10/08/17 13:51 10/08/17 13:51 10/08/17 13:51 10/08/17 13:51 - Notes Notes: PHYSICAL EXAMINATION: GENERAL: Well-appearing, in no acute distress. Appears depressed. HEAD: Atraumatic, normocephalic. EYES: Pupils equal round and reactive to light, extraocular movements intact. ENT: oropharynx clear without exudates. Moist mucous membranes. NECK: Normal range of motion, supple. LUNGS: Breath sounds clear and equal bilaterally. HEART: Regular rate and rhythm without murmurs. ABDOMEN: Soft, nontender. No guarding or rebound. No masses. BACK: No tenderness throughout entire back. EXTREMITIES: Normal range of motion without pain. NEUROLOGICAL: Normal speech, normal gait. Normal sensory, motor, and reflex exams. Awake, alert, and oriented x3. Cranial nerves normal. PSYCH: Depressed demeanor. SKIN: Warm, dry, no rashes. (FLORES WORLEY) Course - Laboratory Result Diagrams: 10/08/17 14:00 10/08/17 14:00 <MAR ANDERSON - Last Filed: 10/08/17 15:46> - Laboratory Result Diagrams: 10/08/17 14:00 10/08/17 14:00 <FLORES WORLEY - Last Filed: 10/08/17 20:00> - Re-evaluation Re-evalutation: 10/08/17 20:00 Patient was evaluated by mental health. Patient is felt to be medically stable for transfer or discharge. They feel he can be discharged home. He is followed at [facility]. (FLORES WORLEY) - Vital Signs Vital signs: Temp Pulse Resp BP Pulse Ox 98.8 F 63 18 108/71 100 10/08/17 13:51 10/08/17 13:51 10/08/17 13:51 10/08/17 13:51 10/08/17 13:51 - Laboratory Laboratory results interpreted by me: 10/08/17 10/08/17 14:00 14:00 RBC 5.61 H Potassium 3.2 L Chloride 93 L Carbon Dioxide 35 H Total Protein 8.9 H Salicylates < 1.0 L Acetaminophen < 10 L Discharge <MAR ANDERSON - Last Filed: 10/08/17 15:46> <FLORES WORLEY - Last Filed: 10/08/17 20:00> - Discharge Clinical Impression: Major depressive disorder, recurrent Qualifiers: Active/Remission status: currently active Major depression episode severity: unspecified Qualified Code(s): F33.9 - Major depressive disorder, recurrent, unspecified Condition: Stable Disposition: HOME, SELF-CARE Additional Instructions: You have been evaluated by both mental health and medical teams and have been deemed appropriate for discharge. Is recommended you follow-up with your outpatient mental health provider for continued medication management and therapeutic services. DEPRESSION: Your evaluation reveals that you have mental depression. While symptoms may be vague, they often include disturbance of sleep, fatigue, loss of appetite , and general loss of interest in life. While depression may be a side effect of drugs, or a reaction to a major change in your life, many cases have no known cause. If depression is acute, and related to a major loss in your life, you can expect it to clear completely with time. If you have been depressed a long time , are prone to repeated bouts of depression or low mood, or have been thinking of suicide, get help. Depression can be treated with anti-depressant medication and counselling. Long-term depression will often take a few weeks to clear, even with appropriate medication. Follow-up care is important. FOLLOW-UP CARE: If you experience worsening or a significant change in your symptoms, notify the physician immediately or return to the Emergency Department at any time for re-evaluation. Referrals: GUERO BRIAN MD [Primary Care Provider] - Follow up as needed [facility] [Outside] - Follow up as needed [facility] Crisis [facility] [Outside] - Follow up as needed
[2017-10-08 15:08] LABS: URINE AMPHETAMINES SCREEN NEGATIVE; URINE BARBITURATES SCREEN NEGATIVE; URINE BENZODIAZEPINES SCREEN NEGATIVE; URINE COCAINE SCREEN NEGATIVE; URINE MARIJUANA (THC) SCREEN UNCONFIRMED POSITIVE; URINE METHADONE SCREEN NEGATIVE; URINE PHENCYCLIDINE SCREEN NEGATIVE
[2017-10-08 15:11] LABS: ALANINE AMINOTRANSFERASE 53 U/L (21-72); ALBUMIN 4.5 g/dL (3.5-5.0); ALKALINE PHOSPHATASE 99 U/L (38-126); ANION GAP 14 (5-19); ASPARTATE AMINO TRANSFERASE 42 U/L (17-59); BILIRUBIN,DIRECT 0.4 mg/dL (0.0-0.4); BILIRUBIN,TOTAL 0.9 mg/dL (0.2-1.3); BLOOD UREA NITROGEN 12 mg/dL (7-20); CALCIUM 9.8 mg/dL (8.4-10.2); CARBON DIOXIDE 35 mmol/L (22-30); CHLORIDE 93 mmol/L (98-107); GLUCOSE 100 mg/dL (75-110); POTASSIUM 3.2 mmol/L (3.6-5.0); SODIUM 141.9 mmol/L (137-145); TOTAL PROTEIN 8.9 g/dL (6.3-8.2)
[2017-10-08 15:14] LABS: ACETAMINOPHEN < 10 ug/mL (10-30); ALCOHOL < 10 mg/dL (NONE DETECTED); SALICYLATE < 1.0 mg/dL (2.0-20.0)
[2017-10-08 15:22] LABS: PLATELET COUNT 236 10^3/uL (150-450)
--- NOTE | 2017-10-08 19:52 | EKG REPORT ---
SEVERITY:- NORMAL ECG - SINUS RHYTHM : Confirmed by: Levy Villeags MD 08-Oct-2017 19:51:34
== END 2017-10-08 16:03 | disposition home or self-care (01) ==
LOC: ER 13:08
DX: F33.9 Major depressive disorder, recurrent, unspecified (principal); F29 Unspecified psychosis not due to a substance or known physiological condition; R53.1 Weakness; Z88.5 Allergy status to narcotic agent; Z88.8 Allergy status to other drugs, medicaments and biological substances; Z88.0 Allergy status to penicillin; Z91.048 Other nonmedicinal substance allergy status
CPT/HCPCS: 36415; 80053; 80307; 81001; 85025; 93005; 93010; 99284

== ENCOUNTER 2017-12-03 08:14 | Emergency (ER) | payer MEDICARE, MEDICAID ==
--- NOTE | 2017-12-03 08:49 | ER Document Report ---
ED General - General Chief Complaint: Dizziness Stated Complaint: DIZZY, LEFT LEG PAIN Time Seen by Provider: 12/03/17 08:47 Notes: 42-year-old male to the emergency department complaining of chronic low back pain and pain that shoots down both legs. Intermittent headache. Intermittent dizziness. Denies any chest pain or shortness of breath. States that the dizziness and the headaches have been present for months. At one time he was told that he had seizures but that has been ruled out. Had a extensive workup done recently. His primary care doctor thinks that he has lupus and has been started on prednisone for the last month. Is scheduled to see automatic i threading machine feeder in less than a week. States that the pain is getting worse in his legs. The headache is not worse. He does not have a fever. No confusion. No other major symptoms at this time. TRAVEL OUTSIDE OF THE [place] IN LAST 30 DAYS: No - HPI Quality of pain: Achy Severity: Mild - Related Data Allergies/Adverse Reactions: morphine Allergy (Intermediate, Verified 08/13/17 13:50) Facial swelling diphenhydramine [From Benadryl] Allergy (Verified 08/13/17 13:50) divalproex sodium [From Depakote] Allergy (Verified 08/13/17 13:50) levetiracetam [From Keppra] Allergy (Verified 08/13/17 13:50) Hives meperidine [From Demerol] Allergy (Verified 08/13/17 13:50) Penicillins Allergy (Verified 08/13/17 13:50) red dye Allergy (Verified 08/13/17 13:50) yellow dye Allergy (Verified 08/13/17 13:50) pine Allergy (Uncoded 08/13/17 13:50) Past Medical History - General Information source: Patient - Social History Smoking Status: Never Smoker Cigarette use (# per day): No Frequency of alcohol use: None Drug Abuse: None Lives with: Family Family History: None - adopted - Past Medical History Cardiac Medical History: Denies: Hx Coronary Artery Disease, Hx Heart Attack, Hx Hypertension Pulmonary Medical History: Reports: Hx Pneumonia - X7 Denies: Hx Asthma, Hx Bronchitis, Hx COPD Neurological Medical History: Reports: Hx Migraine, Hx Seizures - CONVULSIONS DISORDER. Denies: Hx Cerebrovascular Accident Renal/ Medical History: Denies: Hx Peritoneal Dialysis GI Medical History: Reports: Hx Gastroesophageal Reflux Disease. Denies: Hx Hepatitis, Hx Hiatal Hernia, Hx Ulcer Musculoskeletal Medical History: Denies Hx Arthritis, Reports Hx Musculoskeletal Trauma Psychiatric Medical History: Reports: Hx Depression - PTSD Infectious Medical History: Denies: Hx Hepatitis Past Surgical History: Reports: Hx Orthopedic Surgery - left foot, left wrist, ganglion cyst. Denies: Hx Open Heart Surgery, Hx Pacemaker - Immunizations Immunizations up to date: Yes Hx Diphtheria, Pertussis, Tetanus Vaccination: Yes Review of Systems - Review of Systems Notes: Constitutional: denies: Chills, Diaphoresis, Fever, Malaise, Weakness EENT: denies: Eye discharge, Blurred vision, Tearing, Double vision, Nose congestion, Nose discharge, Throat swelling, Mouth pain Cardiovascular: denies: Palpitations, Heart racing, Orthopnea, Dyspnea, Chest pain Respiratory: denies: Cough, Hurts to breathe, Wheezing, Shortness of breath Gastrointestinal: denies: Abdominal pain, Diarrhea, Nausea, Vomiting, Black stools, bright red blood in stool Genitourinary: denies: Burning, Dysuria, Discharge, Frequency, Flank pain, Hematuria Musculoskeletal: Does complain of some intermittent pain shooting down both legs. Some low back pain on occasion. Hematologic/Lymphatic: denies: Anemia, Easy bleeding, Easy bruising, Blood clots Neurological/Psychological: denies: Confusion, Dementia, Depression, Loss of consciousness. Does complain of headaches Skin: No lesions, no masses, no skin breakdown, no abscesses Physical Exam - Vital signs Vitals: Temp Pulse Resp BP Pulse Ox 97.5 F 65 18 104/64 100 12/03/17 08:23 12/03/17 08:23 12/03/17 08:23 12/03/17 08:23 12/03/17 08:23 Interpretation: Normal - General General appearance: Appears well, Alert - HEENT Head: Normocephalic, Atraumatic Eyes: Normal Pupils: PERRL - Respiratory Respiratory status: No respiratory distress Chest status: Nontender Breath sounds: Normal Chest palpation: Normal - Cardiovascular Rhythm: Regular Heart sounds: Normal auscultation Murmur: No - Abdominal Inspection: Normal Distension: No distension Bowel sounds: Normal Tenderness: Nontender Organomegaly: No organomegaly - Back Back: Normal, Nontender - Extremities General upper extremity: Normal inspection, Nontender, Normal color, Normal ROM , Normal temperature General lower extremity: Normal inspection, Nontender, Normal color, Normal ROM , Normal temperature, Normal weight bearing. No: Kilo's sign - Neurological Neuro grossly intact: Yes Cognition: Normal Orientation: AAOx4 Bailey Coma Scale Eye Opening: Spontaneous Bailey Coma Scale Verbal: Oriented Bailey Coma Scale Motor: Obeys Commands Bailey Coma Scale Total: 15 Speech: Normal Motor strength normal: LUE, RUE, LLE, RLE Sensory: Normal - Psychological Associated symptoms: Normal affect, Normal mood - Skin Skin Temperature: Warm Skin Moisture: Dry Skin Color: Normal Course - Re-evaluation Re-evalutation: 12/03/17 09:17 This is a well-appearing male in no acute distress. Blood sugar within normal limits for panic values but is a little bit high but has been on prednisone. Patient has no chest complaints. No shortness of breath. Has been having chronic headaches and chronic dizziness since the diagnosis of lupus. Has a follow-up appointment in less than a week with a automatic i threading machine feeder. At this time will just do simple pain management. Patient is comfortable with this plan. There is no fever, chills, sweats. No confusion. No concern at this time for lupus cerebritis or infections. Will discharge in stable. 12/03/17 09:18 - Vital Signs Vital signs: Temp Pulse Resp BP Pulse Ox 97.5 F 65 18 104/64 100 12/03/17 08:23 12/03/17 08:23 12/03/17 08:23 12/03/17 08:23 12/03/17 08:23 Discharge - Discharge Clinical Impression: Lupus arthritis Condition: Good Disposition: HOME, SELF-CARE Instructions: Dizziness ([facility]), Low Back Pain ([facility]), Myalagia (Muscle Pain) ([facility] ) Additional Instructions: Please follow-up with your specialist. We will prescribe you some medication for breakthrough pain. In the event that you are getting worsening symptoms, chest pain, shortness of breath, fever please return immediately. Prescriptions: Ketorolac Tromethamine 10 mg PO TID PRN 7 Days #21 tablet PRN Reason: Referrals: GUERO BRIAN MD [Primary Care Provider] - Follow up as needed KRYSTEN ZEPEDA MD [ACTIVE STAFF] - 12/09/17
[2017-12-03] MEDS: KETOROLAC TROMETHAMINE 60 MG/2 ML SDV IM ONE ×2 (09:17→09:23)
[2017-12-03 09:47] VITALS: BP 105/65
== END 2017-12-03 09:47 | disposition home or self-care (01) ==
LOC: ER 08:14
DX: M32.19 Other organ or system involvement in systemic lupus erythematosus (principal); M19.93 Secondary osteoarthritis, unspecified site; Z79.52 Long term (current) use of systemic steroids; R51 Headache; M54.5 Low back pain; G89.29 Other chronic pain; R42 Dizziness and giddiness; M79.604 Pain in right leg; M79.605 Pain in left leg; Z88.5 Allergy status to narcotic agent; Z88.8 Allergy status to other drugs, medicaments and biological substances; Z88.0 Allergy status to penicillin; Z91.048 Other nonmedicinal substance allergy status
CPT/HCPCS: 82962; 99284; J1885

== ENCOUNTER 2017-12-15 15:55 | Emergency (ER) | payer MEDICARE, MEDICAID ==
--- NOTE | 2017-12-15 16:53 | ER Document Report ---
ED Medical Screen (RME) - General Chief Complaint: Leg Pain Stated Complaint: LEG PAIN Time Seen by Provider: 12/15/17 16:52 Mode of Arrival: Ambulatory Information source: Patient Notes: Patient presents complaining of intermittent bilateral leg pain for the past 2 months. Patient states that the pain has gotten worse and is a pinching-like sensation over the past 2-3 days. Patient states that he has seen his primary doctor and has mentioned this to them previously. Patient states that he recently got diagnosed with lupus and he has concerns about this diagnosis. Patient states he was prescribed multiple medications but he has not been taking his meloxicam because he is just worried about this medication. Patient states he has been taking his methotrexate and the prednisone that he was prescribed. I have greeted and performed a rapid initial assessment of this patient. A comprehensive ED assessment and evaluation of the patient, analysis of test results and completion of the medical decision making process will be conducted by additional ED providers. TRAVEL OUTSIDE OF THE [place] IN LAST 30 DAYS: No - Related Data Allergies/Adverse Reactions: morphine Allergy (Intermediate, Verified 12/15/17 16:51) Facial swelling diphenhydramine [From Benadryl] Allergy (Verified 12/15/17 16:51) divalproex sodium [From Depakote] Allergy (Verified 12/15/17 16:51) levetiracetam [From Keppra] Allergy (Verified 12/15/17 16:51) Hives meperidine [From Demerol] Allergy (Verified 12/15/17 16:51) Penicillins Allergy (Verified 12/15/17 16:51) red dye Allergy (Verified 12/15/17 16:51) yellow dye Allergy (Verified 12/15/17 16:51) pine Allergy (Uncoded 12/15/17 16:51) Past Medical History - Social History Chew tobacco use (# tins/day): No - Past Medical History Cardiac Medical History: Denies: Hx Coronary Artery Disease, Hx Heart Attack, Hx Hypertension Pulmonary Medical History: Reports: Hx Pneumonia - INFANT X7 Denies: Hx Asthma, Hx Bronchitis, Hx COPD Neurological Medical History: Reports: Hx Migraine, Hx Seizures - CONVULSIONS DISORDER. Denies: Hx Cerebrovascular Accident Renal/ Medical History: Denies: Hx Peritoneal Dialysis GI Medical History: Reports: Hx Gastroesophageal Reflux Disease. Denies: Hx Hepatitis, Hx Hiatal Hernia, Hx Ulcer Musculoskeltal Medical History: Denies Hx Arthritis, Reports Hx Musculoskeletal Trauma Psychiatric Medical History: Reports: Hx Depression - PTSD Infectious Medical History: Denies: Hx Hepatitis Past Surgical History: Reports: Hx Orthopedic Surgery - left foot, left wrist, ganglion cyst. Denies: Hx Open Heart Surgery, Hx Pacemaker - Immunizations Immunizations up to date: Yes Hx Diphtheria, Pertussis, Tetanus Vaccination: Yes Physical Exam - Vital signs Vitals: Temp Pulse Resp BP Pulse Ox 98.7 F 82 18 118/69 97 12/15/17 16:16 12/15/17 16:16 12/15/17 16:16 12/15/17 16:16 12/15/17 16:16 - Extremities General lower extremity: Tender - Tenderness to bilateral lower extremity, Normal color, Normal ROM, Normal strength, Normal temperature. No: Edema Course - Vital Signs Vital signs: Temp Pulse Resp BP Pulse Ox 98.7 F 82 18 118/69 97 12/15/17 16:16 12/15/17 16:16 12/15/17 16:16 12/15/17 16:16 12/15/17 16:16 Doctor's Discharge - Discharge Referrals: GUERO BRIAN MD [Primary Care Provider] - Follow up as needed
[2017-12-15 18:00] LABS: ABSOLUTE EOSINOPHILS # (AUTO) 0.1 10^3/uL (0.0-0.6); ABSOLUTE LYMPHOCYTES (AUTO) 1.7 10^3/uL (0.5-4.7); ABSOLUTE MONOCYTES (AUTO) 0.6 10^3/uL (0.1-1.4); ABSOLUTE NEUT (AUTO) 4.3 10^3/uL (1.7-8.2); BASOPHILS % (AUTO) 0.4 % (0-2); EOSINOPHILS % (AUTO) 1.4 % (0-6); HEMATOCRIT 44.3 % (37.9-51.0); HEMOGLOBIN 15.3 g/dL (13.5-17.0); LYMPHOCYTES % (AUTO) 25.6 % (13-45); MEAN CORPUSCULAR HGB CONC 34.6 g/dL (32.0-36.0); MEAN CORPUSCULAR VOLUME 84 fl (80-97); MONOCYTES % (AUTO) 8.7 % (3-13); PLATELET COUNT 227 10^3/uL (150-450); RED BLOOD COUNT 5.29 10^6/uL (4.35-5.55); RED CELL DISTRIBUTION WIDTH 13.7 % (11.5-14.0); SEGMENTED NEUTROPHILS % (AUTO) 63.9 % (42-78); TOTAL CELLS COUNTED % (AUTO) 100 %; WHITE BLOOD COUNT 6.8 10^3/uL (4.0-10.5)
[2017-12-15 18:10] LABS: ANION GAP 14 (5-19); BLOOD UREA NITROGEN 12 mg/dL (7-20); CALCIUM 9.3 mg/dL (8.4-10.2); CARBON DIOXIDE 36 mmol/L (22-30); CHLORIDE 91 mmol/L (98-107); CREATINE KINASE 76 U/L (55-170); GLUCOSE 104 mg/dL (75-110); SODIUM 141.3 mmol/L (137-145)
[2017-12-15] MEDS ORDERED: KETOROLAC TROMETHAMINE 10 MG TABLET PO ONE (18:34)
--- NOTE | 2017-12-15 18:44 | ER Document Report ---
HPI - HPI Patient complains to provider of: Chronic leg pain Onset: Other - Past 3 days Onset/Duration: Gradual, Persistent Quality of pain: Achy Severity: Moderate Pain Level: 3 Context: Patient is a 42-year-old male comes to emergency room complaining of bilateral lower extremity pain. Patient is presented with the same complaint previously and states that his main concern today is that he could not take meloxicam because of the side effect profile on it. He states his legs have been aching a little more than usual. He does state that he has seen a operating room orderly and they have started him on prednisone and the meloxicam however he is supposed to start methotrexate tomorrow. Patient states that it took that long for his insurance to work its way out. But he does have his first dose of methotrexate tomorrow. Patient has no new complaints from the previous visits with the same type of presentation. Last time he received Toradol by mouth and it seemed to help but he does not have a prescription for because his insurance will not pay for it. He is here just for an alternative to help him get through the day. Associated Symptoms: None Exacerbated by: Denies Similar symptoms previously: Yes Recently seen / treated by doctor: Yes - ROS ROS below otherwise negative: Yes Systems Reviewed and Negative: Yes All other systems reviewed and negative - CONSTITUTIONAL Constitutional: DENIES: Fever, Chills - EENT EENT: DENIES: Sore Throat, Ear Pain, Nasal Drainage-Clear, Nasal Drainage- Purulent, Congestion, Eye problems - NEURO Neurology: DENIES: Headache, Weakness, Vision blurred, Dizzinesss / Vertigo - RESPIRATORY Respiratory: DENIES: Trouble Breathing, Coughing - GASTROINTESTINAL Gastrointestinal: DENIES: Abdominal Pain, Nausea, Patient vomiting, Diarrhea, Constipation, Black / Bloody Stools - URINARY Urinary: DENIES: Dysuria, Urgency, Frequency - MUSCULOSKELETAL Musculoskeletal: REPORTS: Extremity pain. DENIES: Swelling - DERM Skin Color: Normal Skin Problems: None Past Medical History - General Information source: Patient - Social History Smoking Status: Never Smoker Cigarette use (# per day): No Chew tobacco use (# tins/day): No Smoking Education Provided: No Frequency of alcohol use: None Drug Abuse: None Lives with: Family Family History: None - adopted, Reviewed & Not Pertinent Patient has suicidal ideation: No Patient has homicidal ideation: No - Past Medical History Cardiac Medical History: Denies: Hx Coronary Artery Disease, Hx Heart Attack, Hx Hypertension Pulmonary Medical History: Reports: Hx Pneumonia - INFANT X7 Denies: Hx Asthma, Hx Bronchitis, Hx COPD Neurological Medical History: Reports: Hx Migraine, Hx Seizures - CONVULSIONS DISORDER. Denies: Hx Cerebrovascular Accident Renal/ Medical History: Denies: Hx Peritoneal Dialysis GI Medical History: Reports: Hx Gastroesophageal Reflux Disease. Denies: Hx Hepatitis, Hx Hiatal Hernia, Hx Ulcer Musculoskeletal Medical History: Denies Hx Arthritis, Reports Hx Musculoskeletal Trauma Psychiatric Medical History: Reports: Hx Depression - PTSD Infectious Medical History: Denies: Hx Hepatitis Past Surgical History: Reports: Hx Orthopedic Surgery - left foot, left wrist, ganglion cyst. Denies: Hx Open Heart Surgery, Hx Pacemaker - Immunizations Immunizations up to date: Yes Hx Diphtheria, Pertussis, Tetanus Vaccination: Yes Vertical Provider Document - CONSTITUTIONAL Agree With Documented VS: Yes Exam Limitations: No Limitations General Appearance: WD/WN, No Apparent Distress - INFECTION CONTROL TRAVEL OUTSIDE OF THE [place] IN LAST 30 DAYS: No - HEENT HEENT: Atraumatic, Normal ENT Exam, Normocephalic, PERRLA. negative: Conjuctival Injection, Pharyngeal Exudate, Pharyngeal Tenderness, Pharyngeal Erythema, Tympanic Membrane Red - NECK Neck: Normal Inspection, Supple - RESPIRATORY Respiratory: Breath Sounds Normal, No Respiratory Distress - CARDIOVASCULAR Cardiovascular: Regular Rate, Regular Rhythm, No Murmur - GI/ABDOMEN Gastrointestinal: Abdomen Soft, Abdomen Non-Tender - BACK Back: Normal Inspection - MUSCULOSKELETAL/EXTREMETIES Musculoskeletal/Extremeties: Non-Tender, No Edema Notes: Physical examination patient's lower extremity shows no acute abnormalities. On physical examination patient has full range of motion he walks normally without any limp he is got good flexion and extension of the ankle. Bilaterally. He has good knee flexion and extension and good DTRs. - NEURO Level of Consciousness: Appropriate Motor/Sensory: No Motor Deficit, No Sensory Deficit - DERM Integumentary: Warm, Dry, No Rash Course - Re-evaluation Re-evalutation: 12/15/17 18:49 Patient was found to have a potassium of 3.0. It is been difficult for us to find anything here in the hospital the does not contain yellow dye therefore it is feasible that I will write him a prescription for a potassium chloride tablet that has no yellow dye and he can pick it up at the pharmacy tomorrow 3.0 is low but is not critically low. The option of put an IV and running it in over a course of the next 2-3 hours was considered but patient did not want to stay for that length of time. I attempted to contact our pharmacy here and they are closed for the evening. 12/15/17 18:58 I contacted [facility] across the street and talk to the pharmacist there who indicated that they do make a white potassium chloride tablet which I will write for or change the capsule form to tablet form if it is available oral hand write it in and patient can go there and pick it up. - Vital Signs Vital signs: Temp Pulse Resp BP Pulse Ox 98.7 F 82 18 118/69 97 12/15/17 16:16 12/15/17 16:16 12/15/17 16:16 12/15/17 16:16 12/15/17 16:16 - Laboratory Result Diagrams: 12/15/17 17:37 12/15/17 17:37 Laboratory results interpreted by me: 12/15/17 17:37 Potassium 3.0 L* Chloride 91 L Carbon Dioxide 36 H Discharge - Discharge Clinical Impression: Hypokalemia Lower extremity pain Qualifiers: Laterality: bilateral Qualified Code(s): M79.604 - Pain in right leg; M79.605 - Pain in left leg; M79.605 - Pain in left leg Condition: Stable Disposition: HOME, SELF-CARE Instructions: Hypokalemia ([facility]) Additional Instructions: As we discussed believe that you will make a big change when you start the methotrexate tomorrow. Your labs did show that she were a little low in your potassium so we do not have a substitute the does not have yellow dye in it here tonight. I have called [facility] across the street and they do have a supplement with no yellow dye. I am going to write for you to take this for the next few days. It is probably from 1 of your medications that I not sure which one but you need to follow-up with your primary in your operating room orderly to figure out which one to complete your potassium. Should you have any concerns or problems return to ER. This may also be causing you to have some muscle spasms in your lower remedies so re-supplementation of the potassium may help the discomfort. Prescriptions: Potassium Chloride 20 meq PO DAILY #12 tab.er.prt Referrals: OJEBUOBOH,IBIKUNLE, MD [Primary Care Provider] - Follow up as needed
[2017-12-15 19:36] VITALS: BP 115/71
== END 2017-12-15 19:25 | disposition home or self-care (01) ==
LOC: ER 15:55
DX: E87.6 Hypokalemia (principal); G89.29 Other chronic pain; M79.604 Pain in right leg; M79.605 Pain in left leg
CPT/HCPCS: 99283; 36415; 82550; 85025; 80048; A9270; J3490

== ENCOUNTER → 2018-01-30 | Outpatient (CLI) | payer MEDICARE, MEDICAID ==
--- NOTE | 2018-01-30 08:56 | RADIOLOGY REPORT (SQ) ---
EXAM DESCRIPTION: CT PELVIS WITH COMPLETED DATE/TIME: 01/30/2018 8:29 am REASON FOR STUDY: RLQ PAIN (R10.31), ABD TENDERNESS RLQ (R10.813) R10.31 RIGHT LOWER QUADRANT PAIN R10.813 RIGHT LOWER QUADRANT ABDOMINAL TENDERNESS COMPARISON: None. TECHNIQUE: CT scan of the pelvis performed with intravenous and oral contrast using helical scanning technique with dynamic intravenous contrast injection. Images reviewed with soft tissue and bone win dows. Reconstructed coronal and sagittal MPR images reviewed. Delayed images for evaluation of the ur inary system also acquired. All images stored on PACS. All CT scanners at this facility use dose modulation, iterative reconstruction, and/or weight based d osing when appropriate to reduce radiation dose to as low as reasonably achievable (ALARA). [facility]: Dose Right [facility]: CareDose [facility]: Dose Right [facility]: Teradose 4D [facility]: Cortica CONTRAST TYPE AND DOSE: contrast/concentration: Isovue 350.00 mg/ml; Total Contrast Delivered: 95.0 ml; Total Saline Delivered: 71.0 ml RENAL FUNCTION: None required. The patient is less than 50 years old. RADIATION DOSE: CT Rad equipment meets quality standard of care and radiation dose reduction techniq ues were employed. CTDIvol: 5.6 - 6.8 mGy. DLP: 371 mGy-cm. . LIMITATIONS: None. FINDINGS: AORTA AND VESSELS: No distal aortic aneurysm. No dissection. RETROPERITONEUM: No retroperitoneal adenopathy, hemorrhage or masses. BOWEL AND PERITONEAL CAVITY: Visualized bowel loops normal caliber. No obstruction. No visualized ma sses. No free fluid. No inflammatory changes or thickening of bowel wall. APPENDIX: Normal. PELVIS: No significant masses. Normal bladder. No free fluid. ABDOMINAL WALL: No masses. No hernias. BONES: No significant or acute findings. OTHER: No other significant finding. IMPRESSION: NO SIGNIFICANT OR ACUTE FINDINGS IN THE PELVIS. TECHNICAL DOCUMENTATION: JOB ID: [id number] Quality ID # [id number]: Final reports with documentation of one or more dose reduction techniques (e.g., Au tomated exposure control, adjustment of the mA and/or kV according to patient size, use of iterative reconstruction technique) 2010 [employer]- All Rights Reserved Reading location - IP/workstation name: [facility]
== END ==
LOC: RAD 07:47
PROVIDERS: ATTEND Internal Medicine Gastroenterology
DX: R10.31 Right lower quadrant pain (principal); R10.813 Right lower quadrant abdominal tenderness
CPT/HCPCS: 72193

== ENCOUNTER 2018-03-31 09:02 | Emergency (ER) | payer MEDICARE, MEDICAID ==
[2018-03-31 09:12] VITALS: BP 113/70
[2018-03-31] MEDS ORDERED: NORMAL SALINE 1000 ML 1,000 ML IV ONE (09:39)
[2018-03-31] MEDS ORDERED: ONDANSETRON HCL INJ/PF 4 MG/2 ML SDV IV ONE (09:40)
[2018-03-31] MEDS ORDERED: KETOROLAC TROMETHAMINE INJ/PF 30 MG/1 ML SDV IV ONE (09:40)
--- NOTE | 2018-03-31 09:43 | ER Document Report ---
ED Medical Screen (RME) - General Chief Complaint: Abdominal Pain Stated Complaint: STOMACH PAIN Time Seen by Provider: 03/31/18 09:34 Primary Care Provider: ABDULLAHI SAM MD [Primary Care Provider] - Follow up as needed Notes: Patient is a 43-year-old male with lupus and rheumatoid arthritis that presents to the emergency department for chief complaint of right-sided abdominal pain and body aches. Patient reports that his symptoms started 2 days ago, feels that his body stiffening up, he has had nausea, but the pain is what concerned him today the most in the right side of his abdomen mainly in the upper portion. He does elicit having dysuria this morning, denies fevers but had sweats. ROS: Other than noted above, the 12 point review of systems was reviewed with the patient and were negative, all pertinent findings are included in the HPI. PHYSICAL EXAMINATION: Vital signs reviewed. GENERAL: Appears uncomfortable HEAD: Atraumatic, normocephalic. EYES: Pupils equal round extraocular movements intact, conjunctiva are normal. ENT: Nares patent NECK: Normal range of motion CV: Heart regular rate and rhythm LUNGS: No respiratory distress Musculoskeletal: Normal range of motion NEUROLOGICAL: Normal speech PSYCH: Normal mood, normal affect. MDM: Patient seen and examined for rapid initial assessment. Vital signs reviewed. A comprehensive ED assessment and evaluation of the patient, analysis of test results and completion of the medical decision making process will be conducted by additional ED providers. *Note is created using voice recognition software and may contain spelling, syntax or grammatical errors. TRAVEL OUTSIDE OF THE [place] IN LAST 30 DAYS: No - Related Data Allergies/Adverse Reactions: morphine Allergy (Intermediate, Verified 03/31/18 09:04) Facial swelling diphenhydramine [From Benadryl] Allergy (Verified 03/31/18 09:04) divalproex sodium [From Depakote] Allergy (Verified 03/31/18 09:04) levetiracetam [From Keppra] Allergy (Verified 03/31/18 09:04) Hives meperidine [From Demerol] Allergy (Verified 03/31/18 09:04) Penicillins Allergy (Verified 03/31/18 09:04) red dye Allergy (Verified 03/31/18 09:04) yellow dye Allergy (Verified 03/31/18 09:04) pine Allergy (Uncoded 03/31/18 09:04) Past Medical History - Social History Frequency of alcohol use: Occasional Drug Abuse: None - Past Medical History Cardiac Medical History: Denies: Hx Coronary Artery Disease, Hx Heart Attack, Hx Hypertension Pulmonary Medical History: Reports: Hx Pneumonia - X7 Denies: Hx Asthma, Hx Bronchitis, Hx COPD Neurological Medical History: Reports: Hx Migraine, Hx Seizures - CONVULSIONS DISORDER. Denies: Hx Cerebrovascular Accident Renal/ Medical History: Denies: Hx Peritoneal Dialysis GI Medical History: Reports: Hx Gastroesophageal Reflux Disease. Denies: Hx Hepatitis, Hx Hiatal Hernia, Hx Ulcer Musculoskeltal Medical History: Reports Hx Arthritis - rheumatoid, Reports Hx Musculoskeletal Trauma Psychiatric Medical History: Reports: Hx Depression - PTSD Infectious Medical History: Denies: Hx Hepatitis Past Surgical History: Reports: Hx Orthopedic Surgery - left foot, left wrist, ganglion cyst. Denies: Hx Open Heart Surgery, Hx Pacemaker - Immunizations Immunizations up to date: Yes Hx Diphtheria, Pertussis, Tetanus Vaccination: Yes Physical Exam - Vital signs Vitals: Temp Pulse Resp BP Pulse Ox 98.8 F 75 16 113/70 97 03/31/18 09:11 03/31/18 09:11 03/31/18 09:11 03/31/18 09:11 03/31/18 09:11 Course - Vital Signs Vital signs: Temp Pulse Resp BP Pulse Ox 98.8 F 75 16 113/70 97 03/31/18 09:11 03/31/18 09:11 03/31/18 09:11 03/31/18 09:11 03/31/18 09:11 Doctor's Discharge - Discharge Referrals: ABDULLAHI SAM MD [Primary Care Provider] - Follow up as needed
--- NOTE | 2018-03-31 11:01 | RADIOLOGY REPORT (SQ) ---
EXAM DESCRIPTION: U/S ABDOMEN LIMITED W/O DOP COMPLETED DATE/TIME: 03/31/2018 10:50 am REASON FOR STUDY: ruq abdominal pain COMPARISON: None. TECHNIQUE: Dynamic and static grayscale images acquired of the abdomen and recorded on PACS. Additio kiko selected color Doppler and spectral images recorded. LIMITATIONS: None. FINDINGS: PANCREAS: No masses. Visualized pancreatic duct normal caliber. LIVER: No masses. Echotexture normal. LIVER VASCULATURE: Normal directional flow of the main portal vein and hepatic veins. GALLBLADDER: No stones. Normal wall thickness. No pericholecystic fluid. ULTRASOUND-DETECTED COELHO'S SIGN: Negative. INTRAHEPATIC DUCTS AND COMMON DUCT: CBD and intrahepatic ducts normal caliber. No filling defects. INFERIOR VENA CAVA: Normal flow. AORTA: No aneurysm. RIGHT KIDNEY: Normal size. Normal echogenicity. No solid or suspicious masses. No hydronephrosis. No calcifications. PERITONEAL AND RIGHT PLEURAL SPACE: No ascites or effusions. OTHER: No other significant findings. IMPRESSION: NORMAL RIGHT UPPER QUADRANT ULTRASOUND. TECHNICAL DOCUMENTATION: JOB ID: [id number] [employer]- All Rights Reserved Reading location - IP/workstation name: [email or web address]
[2018-03-31 11:18] LABS: HEMATOCRIT 45.1 % (37.9-51.0); HEMOGLOBIN 15.4 g/dL (13.5-17.0); MEAN CORPUSCULAR HEMOGLOBIN 28.9 pg (27.0-33.4); MEAN CORPUSCULAR HGB CONC 34.1 g/dL (32.0-36.0); MEAN CORPUSCULAR VOLUME 85 fl (80-97); PLATELET COUNT 251 10^3/uL (150-450); RED BLOOD COUNT 5.31 10^6/uL (4.35-5.55); RED CELL DISTRIBUTION WIDTH 13.7 % (11.5-14.0); WHITE BLOOD COUNT 5.2 10^3/uL (4.0-10.5)
--- NOTE | 2018-03-31 11:18 | ER Document Report ---
ED GI/ - General Chief Complaint: Abdominal Pain Stated Complaint: STOMACH PAIN Time Seen by Provider: 03/31/18 09:34 Primary Care Provider: ABDULLAHI SAM MD [ACTIVE STAFF] - Follow up as needed Notes: 43-year-old male with lupus and rheumatoid arthritis that presents to the emergency department for chief complaint of right-sided abdominal pain and body aches. Patient reports that his symptoms started 2 days ago, feels that his body stiffening up, he has had nausea, but the pain is what concerned him today the most in the right side of his abdomen mainly in the upper portion. He does elicit having dysuria this morning, denies fevers but had sweats. Patient complains of nausea but has not had vomiting. Has had a couple loose stools. Denies rashes. States he also has been feeling very stiff in his [place] nts and having a lot of muscle pain. States this comes and goes. He is been diagnosed with lupus and arthritis. He is still waiting to see a specialist. TRAVEL OUTSIDE OF THE [place] IN LAST 30 DAYS: No - Related Data Allergies/Adverse Reactions: morphine Allergy (Intermediate, Verified 03/31/18 09:04) Facial swelling diphenhydramine [From Benadryl] Allergy (Verified 03/31/18 09:04) divalproex sodium [From Depakote] Allergy (Verified 03/31/18 09:04) levetiracetam [From Keppra] Allergy (Verified 03/31/18 09:04) Hives meperidine [From Demerol] Allergy (Verified 03/31/18 09:04) Penicillins Allergy (Verified 03/31/18 09:04) red dye Allergy (Verified 03/31/18 09:04) yellow dye Allergy (Verified 03/31/18 09:04) pine Allergy (Uncoded 03/31/18 09:04) Past Medical History - Social History Smoking Status: Current Every Day Smoker Frequency of alcohol use: Occasional Drug Abuse: None Family History: None Patient has suicidal ideation: No Patient has homicidal ideation: No - Past Medical History Cardiac Medical History: Denies: Hx Coronary Artery Disease, Hx Heart Attack, Hx Hypertension Pulmonary Medical History: Reports: Hx Pneumonia - INFANT X7 Denies: Hx Asthma, Hx Bronchitis, Hx COPD Neurological Medical History: Reports: Hx Migraine, Hx Seizures - CONVULSIONS DISORDER. Denies: Hx Cerebrovascular Accident Renal/ Medical History: Denies: Hx Peritoneal Dialysis GI Medical History: Reports: Hx Gastroesophageal Reflux Disease. Denies: Hx Hepatitis, Hx Hiatal Hernia, Hx Ulcer Musculoskeletal Medical History: Reports Hx Arthritis - rheumatoid, Reports Hx Musculoskeletal Trauma Psychiatric Medical History: Reports: Hx Depression - PTSD Infectious Medical History: Denies: Hx Hepatitis Past Surgical History: Reports: Hx Orthopedic Surgery - left foot, left wrist, ganglion cyst. Denies: Hx Open Heart Surgery, Hx Pacemaker - Immunizations Immunizations up to date: Yes Hx Diphtheria, Pertussis, Tetanus Vaccination: Yes Review of Systems - Review of Systems Constitutional: Malaise. denies: Chills, Fever Cardiovascular: denies: Chest pain Respiratory: denies: Cough, Short of breath Gastrointestinal: Diarrhea, Nausea. denies: Vomiting, Constipation Musculoskeletal: Joint pain, Muscle pain, Muscle stiffness. denies: Back pain, Joint swelling Skin: denies: Rash Neurological/Psychological: denies: Headaches -: Yes All other systems reviewed and negative Physical Exam - Vital signs Vitals: Temp Pulse Resp BP Pulse Ox 98.8 F 75 16 113/70 97 03/31/18 09:11 03/31/18 09:11 03/31/18 09:11 03/31/18 09:11 03/31/18 09:11 - Notes Notes: GENERAL_APPEARANCE: well_nourished, alert, cooperative, no_acute_distress, no_obvious_discomfort. VITALS: reviewed, see vital signs table. HEAD: no_swelling\tenderness on the head. EYES: PERRL, EOMI, conjunctiva_clear. NOSE: no_nasal_discharge. MOUTH: (-)decreased moisture. THROAT: no_tonsilar_inflammation, no_airway_obstruction. no_lymphadenopathy NECK: supple, no_neck_tenderness, (-)thyromegaly. BACK: Focal back tenderness just generalized discomfort along the erector spinae muscles CHEST_WALL: no_chest_tenderness. LUNGS: no_wheezing, no_rales, no_rhonchi, (-)accessory muscle use, good air exchange bilateral. HEART: normal_rate, normal_rhythm, normal_S1, normal_S2, (-)S3, (-)S4, no_murmur, no_rub. ABDOMEN: normal_BS, soft, right lower quadrant_abd_tenderness, (-)guarding, (- )rebound, no_organomegaly, no_abd_masses. EXTREMITIES: No edema are noted no calf pain or tenderness patient complains of just generalized achiness along his large muscle groups of his quadriceps back and triceps. SKIN: warm, dry, good_color, no_rash. MENTAL_STATUS: speech_clear, oriented_X_3, normal_affect, responds_appropriately to questions. Course - Re-evaluation Re-evalutation: 03/31/18 11:17 41-year-old male with a history of lupus and rheumatoid arthritis who presents with right-sided abdominal pain. The story is fairly inconsistent. At one time it is right lower than right upper than right flank. 03/31/18 11:18 Triage ordered bladder ultrasound which was normal or to CT of the abdomen to as sess for kidney stone or other abnormalities. - Vital Signs Vital signs: Temp Pulse Resp BP Pulse Ox 98.8 F 75 16 113/70 97 03/31/18 09:11 03/31/18 09:11 03/31/18 09:11 03/31/18 09:11 03/31/18 09:11 - Laboratory Result Diagrams: 03/31/18 10:59 03/31/18 10:59 Laboratory results interpreted by me: 03/31/18 03/31/18 10:59 10:59 Basophils % (Manual) 4 H Potassium 3.3 L Chloride 90 L Carbon Dioxide 36 H Total Protein 8.3 H Discharge - Discharge Clinical Impression: Lupus arthritis Abdominal pain Qualifiers: Abdominal location: upper abdomen, unspecified Qualified Code(s): R10.10 - U pper abdominal pain, unspecified Condition: Good Disposition: HOME, SELF-CARE Instructions: Abdominal Pain ([facility]), Antinausea Medication ([facility]) Prescriptions: Ondansetron [Zofran Odt 4 mg Tablet] 1 - 2 tab PO Q4H PRN #15 tab.rapdis PRN Reason: For Nausea/Vomiting Referrals: ABDULLAHI SAM MD [ACTIVE STAFF] - Follow up as needed
[2018-03-31 11:33] LABS: ALANINE AMINOTRANSFERASE 32 U/L (21-72); ALBUMIN 4.5 g/dL (3.5-5.0); ALKALINE PHOSPHATASE 87 U/L (38-126); ANION GAP 13 (5-19); ASPARTATE AMINO TRANSFERASE 35 U/L (17-59); BILIRUBIN,DIRECT 0.3 mg/dL (0.0-0.4); BILIRUBIN,TOTAL 1.1 mg/dL (0.2-1.3); BLOOD UREA NITROGEN 16 mg/dL (7-20); CALCIUM 9.4 mg/dL (8.4-10.2); CARBON DIOXIDE 36 mmol/L (22-30); CHLORIDE 90 mmol/L (98-107); GLUCOSE 100 mg/dL (75-110); LIPASE 75.8 U/L (23-300); POTASSIUM 3.3 mmol/L (3.6-5.0); SODIUM 138.7 mmol/L (137-145); TOTAL PROTEIN 8.3 g/dL (6.3-8.2)
--- NOTE | 2018-03-31 11:51 | RADIOLOGY REPORT (SQ) ---
EXAM DESCRIPTION: CT ABD/PELVIS NO ORAL OR IV COMPLETED DATE/TIME: 03/31/2018 11:32 am REASON FOR STUDY: Right flank rlq pain COMPARISON: None. TECHNIQUE: CT scan of the abdomen and pelvis performed without intravenous or oral contrast. Images reviewed with lung, soft tissue, and bone windows. Reconstructed coronal and sagittal MPR images revi ewed. All images stored on PACS. All CT scanners at this facility use dose modulation, iterative reconstruction, and/or weight based d osing when appropriate to reduce radiation dose to as low as reasonably achievable (ALARA). [facility]: Dose Right [facility]: CareDose [facility]: Dose Right [facility]: Teradose 4D [facility]: Smart Leeo RADIATION DOSE: CT Rad equipment meets quality standard of care and radiation dose reduction techniq ues were employed. CTDIvol: 6.5 mGy. DLP: 352 mGy-cm.mGy. LIMITATIONS: None. FINDINGS: LOWER CHEST: No significant findings. No nodules or infiltrates. NON-CONTRASTED LIVER, SPLEEN, ADRENALS: Evaluation limited by lack of IV contrast. No identified sign ificant masses. PANCREAS: No masses. No peripancreatic inflammatory changes. GALLBLADDER: No identified stones by CT criteria. No inflammatory changes to suggest cholecystitis. RIGHT KIDNEY AND URETER: No suspicious masses. Assessment limited by lack of IV contrast. No signif icant calcifications. No hydronephrosis or hydroureter. LEFT KIDNEY AND URETER: No suspicious masses. Assessment limited by lack of IV contrast. No signifi cant calcifications. No hydronephrosis or hydroureter. AORTA AND RETROPERITONEUM: No aneurysm. No retroperitoneal masses or adenopathy. BOWEL AND PERITONEAL CAVITY: No obvious masses or inflammatory changes. No free fluid. APPENDIX: Normal. PELVIS, BLADDER, AND ABDOMINAL WALL:No abnormal masses. No free fluid. Bladder normal. BONES: No significant findings. OTHER: No other significant finding. IMPRESSION: NO SIGNIFICANT OR ACUTE PROCESS IN THE ABDOMEN OR PELVIS. COMMENT: Quality ID # [id number]: Final reports with documentation of one or more dose reduction techniques (e.g., Automated exposure control, adjustment of the mA and/or kV according to patient size, use of iterative reconstruction technique) TECHNICAL DOCUMENTATION: JOB ID: [id number] [employer]- All Rights Reserved Reading location - IP/workstation name: [email or web address]
[2018-03-31 11:52] LABS: ABSOLUTE LYMPHOCYTES# (MANUAL) 1.9 10^3/uL (0.5-4.7); ABSOLUTE MONOCYTES # (MANUAL) 0.4 10^3/uL (0.1-1.4); ABSOLUTE NEUTROPHILS# (MANUAL) 2.8 10^3/uL (1.7-8.2); EOSINOPHILS % (MANUAL) 0 % (0-6); LYMPHOCYTES % (MANUAL) 35 % (13-45); MONOCYTES % (MANUAL) 7 % (3-13); SEGMENTED NEUTROPHILS % (MAN) 53 % (42-78); TOTAL CELLS COUNTED 100
[2018-03-31 11:54] LABS: PLATELET LARGE PRESENT; POLYCHROMASIA SLIGHT
[2018-03-31 11:55] LABS: BASOPHILS % (MANUAL) 4 % (0-2); PLATELET COMMENT ADEQUATE
[2018-03-31 12:45] LABS: APPEARANCE,URINE CLEAR; BILIRUBIN,URINE NEGATIVE (NEGATIVE); COLOR,URINE YELLOW; GLUCOSE, URINE NEGATIVE (NEGATIVE); KETONES,URINE NEGATIVE (NEGATIVE); LEUKOCYTE ESTERASE,URINE NEGATIVE (NEGATIVE); NITRITE,URINE NEGATIVE (NEGATIVE); PROTEIN,URINE NEGATIVE (NEGATIVE); URINE SPECIFIC GRAVITY 1.014; UROBILINOGEN,URINE NEGATIVE mg/dL (<2.0)
[2018-03-31] MEDS ORDERED: POTASSIUM CHLORIDE 10 MEQ CAPSULE.ER PO ONE (14:12)
[2018-04-01 11:50] LABS: PATH REVIEW PATHOLOGIST REVIEWED
== END 2018-03-31 15:56 | disposition home or self-care (01) ==
LOC: ER 09:02
DX: R10.11 Right upper quadrant pain (principal); R10.31 Right lower quadrant pain; R10.813 Right lower quadrant abdominal tenderness; R10.9 Unspecified abdominal pain; L93.0 Discoid lupus erythematosus; M06.9 Rheumatoid arthritis, unspecified; R11.0 Nausea; R19.7 Diarrhea, unspecified; R53.81 Other malaise; F17.200 Nicotine dependence, unspecified, uncomplicated; Z88.5 Allergy status to narcotic agent; Z88.8 Allergy status to other drugs, medicaments and biological substances; Z88.0 Allergy status to penicillin; Z91.048 Other nonmedicinal substance allergy status
CPT/HCPCS: 99284; 96361; 96374; 96375; 36415; 83690; 85025; 80053; 81001; 76705; 74176; J1885; J2405; J7030; A9270

== ENCOUNTER 2018-05-07 12:36 | Emergency (ER) | payer MEDICARE, MEDICAID ==
[2018-05-07] MEDS ORDERED: ONDANSETRON HCL INJ/PF 4 MG/2 ML SDV IV ONE (13:33)
[2018-05-07] MEDS ORDERED: NORMAL SALINE 1000 ML 1,000 ML IV ONE (13:33)
--- NOTE | 2018-05-07 13:33 | ER Document Report ---
ED Medical Screen (RME) - General Chief Complaint: Abdominal Pain Stated Complaint: ABDOMINAL PAIN Time Seen by Provider: 05/07/18 13:22 Primary Care Provider: GUERO BRIAN MD [Primary Care Provider] - Follow up as needed Notes: Patient is a 43-year-old male with history of lupus that presents to the emergency department for chief complaint of right upper quadrant abdominal pain. Reports the pain started Saturday, he thinks it may be related to when he started taking methotrexate on Saturday, the pain is intermittent and sharp.. ROS: Other than noted above, the 12 point review of systems was reviewed with the patient and were negative, all pertinent findings are included in the HPI. PHYSICAL EXAMINATION: Vital signs reviewed. GENERAL: Well-appearing, well-nourished and in no acute distress. HEAD: Atraumatic, normocephalic. EYES: Pupils equal round extraocular movements intact, conjunctiva are normal. ENT: Nares patent NECK: Normal range of motion CV: Heart regular rate and rhythm LUNGS: No respiratory distress Abdomen: Significant right upper quadrant tenderness with palpation. Musculoskeletal: Normal range of motion NEUROLOGICAL: Normal speech PSYCH: Normal mood, normal affect. MDM: Patient seen and examined for rapid initial assessment. Vital signs reviewed. A comprehensive ED assessment and evaluation of the patient, analysis of test results and completion of the medical decision making process will be conducted by additional ED providers. *Note is created using voice recognition software and may contain spelling, syntax or grammatical errors. TRAVEL OUTSIDE OF THE [place] IN LAST 30 DAYS: No - Related Data Allergies/Adverse Reactions: morphine Allergy (Intermediate, Verified 05/07/18 13:30) Facial swelling diphenhydramine [From Benadryl] Allergy (Verified 05/07/18 13:30) divalproex sodium [From Depakote] Allergy (Verified 05/07/18 13:30) levetiracetam [From Keppra] Allergy (Verified 05/07/18 13:30) Hives meperidine [From Demerol] Allergy (Verified 05/07/18 13:30) Penicillins Allergy (Verified 05/07/18 13:30) red dye Allergy (Verified 05/07/18 13:30) yellow dye Allergy (Verified 05/07/18 13:30) pine Allergy (Uncoded 05/07/18 13:30) Past Medical History - Social History Chew tobacco use (# tins/day): No Frequency of alcohol use: None Drug Abuse: None - Past Medical History Cardiac Medical History: Denies: Hx Coronary Artery Disease, Hx Heart Attack, Hx Hypertension Pulmonary Medical History: Reports: Hx Pneumonia - INFANT X7 Denies: Hx Asthma, Hx Bronchitis, Hx COPD Neurological Medical History: Reports: Hx Migraine, Hx Seizures - CONVULSIONS DISORDER/neuro recently r/o seizure disorder. Denies: Hx Cerebrovascular Accident Renal/ Medical History: Denies: Hx Peritoneal Dialysis GI Medical History: Reports: Hx Gastroesophageal Reflux Disease. Denies: Hx Hepatitis, Hx Hiatal Hernia, Hx Ulcer Musculoskeltal Medical History: Reports Hx Arthritis - rheumatoid, Reports Hx Musculoskeletal Trauma Psychiatric Medical History: Reports: Hx Depression - PTSD Infectious Medical History: Denies: Hx Hepatitis Past Surgical History: Reports: Hx Abdominal Surgery - feeding tube as infant, Hx Orthopedic Surgery - left foot, left wrist, ganglion cyst. Denies: Hx Open Heart Surgery, Hx Pacemaker - Immunizations Immunizations up to date: Yes Hx Diphtheria, Pertussis, Tetanus Vaccination: Yes Physical Exam - Vital signs Vitals: Temp Pulse Resp BP Pulse Ox 97.6 F 77 20 112/75 100 05/07/18 12:40 05/07/18 12:40 05/07/18 12:40 05/07/18 12:40 05/07/18 12:40 Course - Vital Signs Vital signs: Temp Pulse Resp BP Pulse Ox 97.6 F 77 20 112/75 100 05/07/18 12:40 05/07/18 12:40 05/07/18 12:40 05/07/18 12:40 05/07/18 12:40 Doctor's Discharge - Discharge Referrals: GUERO BRIAN MD [Primary Care Provider] - Follow up as needed
[2018-05-07] MEDS ORDERED: FENTANYL CITRATE INJ/PF 100 MCG/2 ML AMPUL IV ONE (13:34)
[2018-05-07 14:07] LABS: ABSOLUTE LYMPHOCYTES (AUTO) 0.8 10^3/uL (0.5-4.7); ABSOLUTE MONOCYTES (AUTO) 0.1 10^3/uL (0.1-1.4); ABSOLUTE NEUT (AUTO) 7.3 10^3/uL (1.7-8.2); BASOPHILS % (AUTO) 0.4 % (0-2); EOSINOPHILS % (AUTO) 0.1 % (0-6); HEMATOCRIT 45.5 % (37.9-51.0); HEMOGLOBIN 15.3 g/dL (13.5-17.0); LYMPHOCYTES % (AUTO) 9.8 % (13-45); MEAN CORPUSCULAR HEMOGLOBIN 28.2 pg (27.0-33.4); MEAN CORPUSCULAR HGB CONC 33.6 g/dL (32.0-36.0); MEAN CORPUSCULAR VOLUME 84 fl (80-97); MONOCYTES % (AUTO) 1.7 % (3-13); PLATELET COUNT 229 10^3/uL (150-450); RED BLOOD COUNT 5.42 10^6/uL (4.35-5.55); RED CELL DISTRIBUTION WIDTH 13.9 % (11.5-14.0); TOTAL CELLS COUNTED % (AUTO) 100 %; WHITE BLOOD COUNT 8.3 10^3/uL (4.0-10.5)
[2018-05-07 14:17] LABS: APPEARANCE,URINE CLEAR; BILIRUBIN,URINE NEGATIVE (NEGATIVE); COLOR,URINE YELLOW; GLUCOSE, URINE NEGATIVE (NEGATIVE); KETONES,URINE NEGATIVE (NEGATIVE); LEUKOCYTE ESTERASE,URINE NEGATIVE (NEGATIVE); NITRITE,URINE NEGATIVE (NEGATIVE); PROTEIN,URINE NEGATIVE (NEGATIVE); URINE SPECIFIC GRAVITY 1.011; UROBILINOGEN,URINE NEGATIVE mg/dL (<2.0)
--- NOTE | 2018-05-07 15:07 | RADIOLOGY REPORT (SQ) ---
EXAM DESCRIPTION: U/S ABDOMEN LIMITED W/O DOP COMPLETED DATE/TIME: 05/07/2018 2:59 pm REASON FOR STUDY: ruq pain COMPARISON: CT abdomen pelvis 03/31/2018 Right upper quadrant ultrasound 03/31/2018 TECHNIQUE: Dynamic and static grayscale images acquired of the abdomen and recorded on PACS. Additio nal selected color Doppler and spectral images recorded. LIMITATIONS: Midline bowel gas FINDINGS: PANCREAS: Midline pancreas not well seen LIVER: No masses. Echotexture normal. LIVER VASCULATURE: Normal directional flow of the main portal vein and hepatic veins. GALLBLADDER: No stones. Normal wall thickness. No pericholecystic fluid. ULTRASOUND-DETECTED COELHO'S SIGN: Negative. INTRAHEPATIC DUCTS AND COMMON DUCT: CBD and intrahepatic ducts normal caliber. No filling defects. INFERIOR VENA CAVA: Normal flow. AORTA: No aneurysm. RIGHT KIDNEY: Normal size. Normal echogenicity. No solid or suspicious masses. No hydronephrosis. No calcifications. PERITONEAL AND RIGHT PLEURAL SPACE: No ascites or effusions. OTHER: No other significant findings. IMPRESSION: NORMAL RIGHT UPPER QUADRANT ULTRASOUND. TECHNICAL DOCUMENTATION: JOB ID: [id number] All Rights Reserved Reading location - IP/workstation name: [email or web address]
--- NOTE | 2018-05-07 15:10 | ER Document Report ---
ED General - General Chief Complaint: Abdominal Pain Stated Complaint: ABDOMINAL PAIN Time Seen by Provider: 05/07/18 13:22 Primary Care Provider: JORGE THOMAS MD [ACTIVE STAFF] - Follow up as needed GUERO BRIAN MD [Primary Care Provider] - Follow up as needed TRAVEL OUTSIDE OF THE [place] IN LAST 30 DAYS: No - HPI Notes: Patient is a 43-year-old male with a history of lupus and MH disorders who presents the emergency department complaining of right-sided abdominal pain which she describes is upper and lower. Patient states that the pain does not radiate. The pain began 4 days ago. He is still able to eat and drink, but does have a decreased p.o. intake. He is urinating normally and having normal bowel movements. He has not noticed any melena or hematochezia. No surgical history to his abdomen. Patient states that he had pain similar to this a month ago, but this 1 is more intense. No other concerns or complaints. Denies any headache, fever, neck pain, URI, sore throat, chest pain, palpitations, syncope, cough, shortness of breath, wheeze, dyspnea, nausea/vomiting/diarrhea, urinary retention, dysuria, hematuria, back pain, loss of control of bowel or bladder, numbness/tingling, saddle anesthesia, muscle paralysis/weakness, or rash. - Related Data Allergies/Adverse Reactions: morphine Allergy (Intermediate, Verified 05/07/18 13:30) Facial swelling diphenhydramine [From Benadryl] Allergy (Verified 05/07/18 13:30) divalproex sodium [From Depakote] Allergy (Verified 05/07/18 13:30) levetiracetam [From Keppra] Allergy (Verified 05/07/18 13:30) Hives meperidine [From Demerol] Allergy (Verified 05/07/18 13:30) Penicillins Allergy (Verified 05/07/18 13:30) red dye Allergy (Verified 05/07/18 13:30) yellow dye Allergy (Verified 05/07/18 13:30) pine Allergy (Uncoded 05/07/18 13:30) Past Medical History - Social History Smoking Status: Never Smoker Chew tobacco use (# tins/day): No Frequency of alcohol use: None Drug Abuse: None Family History: None Patient has suicidal ideation: No Patient has homicidal ideation: No - Past Medical History Cardiac Medical History: Denies: Hx Coronary Artery Disease, Hx Heart Attack, Hx Hypertension Pulmonary Medical History: Reports: Hx Pneumonia - X7 Denies: Hx Asthma, Hx Bronchitis, Hx COPD Neurological Medical History: Reports: Hx Migraine, Hx Seizures - CONVULSIONS DISORDER/neuro recently r/o seizure disorder. Denies: Hx Cerebrovascular Accident Renal/ Medical History: Denies: Hx Peritoneal Dialysis GI Medical History: Reports: Hx Gastroesophageal Reflux Disease. Denies: Hx Hepatitis, Hx Hiatal Hernia, Hx Ulcer Musculoskeletal Medical History: Reports Hx Arthritis - rheumatoid, Reports Hx Musculoskeletal Trauma Psychiatric Medical History: Reports: Hx Depression - PTSD Infectious Medical History: Denies: Hx Hepatitis Past Surgical History: Reports: Hx Abdominal Surgery - feeding tube as infant, Hx Orthopedic Surgery - left foot, left wrist, ganglion cyst. Denies: Hx Open Heart Surgery, Hx Pacemaker - Immunizations Immunizations up to date: Yes Hx Diphtheria, Pertussis, Tetanus Vaccination: Yes Review of Systems - Review of Systems -: Yes All other systems reviewed and negative Physical Exam - Vital signs Vitals: Temp Pulse Resp BP Pulse Ox 97.6 F 77 20 112/75 100 05/07/18 12:40 05/07/18 12:40 05/07/18 12:40 05/07/18 12:40 05/07/18 12:40 - Notes Notes: PHYSICAL EXAMINATION: GENERAL: Well-appearing, well-nourished and in no acute distress. HEAD: Atraumatic, normocephalic. EYES: Pupils equal round and reactive to light, extraocular movements intact, sclera anicteric, conjunctiva are normal. ENT: Nares patent and without discharge. oropharynx clear without exudates. No tonsilar hypertrophy or erythema. Moist mucous membranes. NECK: Normal range of motion, supple without lymphadenopathy LUNGS: Breath sounds clear to auscultation bilaterally and equal. No wheezes rales or rhonchi. HEART: Regular rate and rhythm without murmurs, rubs, gallops. ABDOMEN: Soft, nondistended abdomen. No guarding, no rebound. No masses appreciated. Normal bowel sounds present. No CVA tenderness bilaterally. + tenderness to the RLQ and Rt mid abd. Rodriguez neg. No bony tenderness of the ribs. Musculoskeletal: FROM to passive/active. Strength 5+/5. Extremities: No cyanosis, clubbing, or edema b/l. Peripheral pulses 2+. Capillary refill less than 3 seconds. NEUROLOGICAL: Cranial nerves grossly intact. Normal speech, normal gait. Normal sensory, motor exams PSYCH: Normal mood, normal affect. SKIN: Warm, Dry, normal turgor, no rashes or lesions noted. Course - Re-evaluation Re-evalutation: 05/07/18 17:29 Case was reviewed with Dr. Emerson who agrees with workup and dispo at this time: Patient is an afebrile, well-hydrated, 43-year-old male who presents emergency department with abdominal pain on his right side, unspecified. Vitals are acceptable without significant tachycardia, tachypnea, or hypoxia. PE is otherwise unremarkable. Patient is nontoxic-appearing and is able to tolerate p.o. without difficulty. CBC, CMP, lipase, urinalysis were unremarkable. CT scan including a right upper quadrant ultrasound were both unremarkable for acute pathology. Patient had similar presenting symptoms in March and also a CT performed at that time which was unremarkable. No further labs or imaging warranted. Low suspicion/risk for acute appendicitis, bowel obstruction, acute cholecystitis, perforated diverticulitis, incarcerated hernia, pancreatitis, perforated ulcer, peritonitis, sepsis, testicular torsion, or other systemic emergent condition at this time. Patient is aware that his condition can change from initial presentation and he needs to monitor symptoms closely and seek medical attention if any acute changes. Conservative measures otherwise for symptoms. Recheck with PCM in 2-3 days. Consider consult with a sludge control attendant. Return to the ED with any worsening/concerning symptoms otherwise as reviewed in discharge. Patient is in agreement. - Vital Signs Vital signs: Temp Pulse Resp BP Pulse Ox 97.6 F 77 20 112/75 100 05/07/18 12:40 05/07/18 12:40 05/07/18 12:40 05/07/18 12:40 05/07/18 12:40 - Laboratory Result Diagrams: 05/07/18 13:44 05/07/18 16:06 Laboratory results interpreted by me: 05/07/18 05/07/18 13:44 16:06 Seg Neutrophils % 88.0 H Lymphocytes % 9.8 L Monocytes % 1.7 L Sodium 135.8 L Potassium 3.5 L Chloride 94 L Carbon Dioxide 34 H Discharge - Discharge Clinical Impression: Lower abdominal pain, unspecified Condition: Stable Disposition: HOME, SELF-CARE Instructions: Abdominal Pain ([facility]) Additional Instructions: Maintain adequate fluid and food intake Hanna diet (B.R.A.T.) Bananas, rice, apples, toast, etc Zofran as needed tylenol if needed Monitor for any worsening symptoms Make sure you are staying hydrated enough to urinate and have normal BM's Recheck with your PCM in 2-3 days Consider consult with Gastroenterology for ongoing/worsening symptoms Return to the ED with any worsening symptoms and/or development of fever, headache, chest pain, palpitations, syncope, shortness of breath, trouble breathing, abdominal pain, n/v/d, blood in stool/urine, weakness, or other wor sening symptoms that are concerning to you. Referrals: GUERO BRIAN MD [Primary Care Provider] - Follow up as needed JORGE THOMAS MD [ACTIVE STAFF] - Follow up as needed
[2018-05-07] MEDS ORDERED: KETOROLAC TROMETHAMINE INJ/PF 30 MG/1 ML SDV IV ONE (15:14)
[2018-05-07 16:42] LABS: ALANINE AMINOTRANSFERASE 48 U/L (21-72); ALBUMIN 3.9 g/dL (3.5-5.0); ALKALINE PHOSPHATASE 70 U/L (38-126); ANION GAP 8 (5-19); ASPARTATE AMINO TRANSFERASE 25 U/L (17-59); BILIRUBIN,DIRECT 0.2 mg/dL (0.0-0.4); BILIRUBIN,TOTAL 0.8 mg/dL (0.2-1.3); BLOOD UREA NITROGEN 15 mg/dL (7-20); CALCIUM 9.4 mg/dL (8.4-10.2); CARBON DIOXIDE 34 mmol/L (22-30); CHLORIDE 94 mmol/L (98-107); GLUCOSE 110 mg/dL (75-110); LIPASE 44.1 U/L (23-300); POTASSIUM 3.5 mmol/L (3.6-5.0); SODIUM 135.8 mmol/L (137-145); TOTAL PROTEIN 7.6 g/dL (6.3-8.2)
--- NOTE | 2018-05-07 17:03 | RADIOLOGY REPORT (SQ) ---
EXAM DESCRIPTION: CT ABD/PELVIS WITH IV ONLY COMPLETED DATE/TIME: 05/07/2018 4:29 pm REASON FOR STUDY: RLQ pain COMPARISON: None. TECHNIQUE: CT scan of the abdomen and pelvis performed using helical scanning technique with dynamic intravenous contrast injection. No oral contrast. Images reviewed with lung, soft tissue, and bone windows. Reconstructed coronal and sagittal MPR images reviewed. Delayed images for evaluation of the urinary system also acquired. All images stored on PACS. All CT scanners at this facility use dose modulation, iterative reconstruction, and/or weight based d osing when appropriate to reduce radiation dose to as low as reasonably achievable (ALARA). [facility]: Dose Right [facility]: CareDose [facility]: Dose Right [facility]: Teradose 4D [facility]: DisplayLink CONTRAST TYPE AND DOSE: contrast/concentration: Isovue 350.00 mg/ml; Total Contrast Delivered: 96.0 ml; Total Saline Delivered: 71.0 ml RENAL FUNCTION: None required. The patient is less than 50 years old. RADIATION DOSE: CT Rad equipment meets quality standard of care and radiation dose reduction techniq ues were employed. CTDIvol: 7.3 - 10.2 mGy. DLP: 898 mGy-cm.. LIMITATIONS: None. FINDINGS: LOWER CHEST: No significant findings. No nodules or infiltrates. LIVER: Normal size. No masses. No dilated ducts. SPLEEN: Normal size. No focal lesions. PANCREAS: No masses. No significant calcifications. No adjacent inflammation or peripancreatic fluid collections. Pancreatic duct not dilated. GALLBLADDER: No identified stones by CT criteria. No inflammatory changes to suggest cholecystitis. ADRENAL GLANDS: No significant masses or asymmetry. RIGHT KIDNEY AND URETER: No solid masses. No significant calcifications. No hydronephrosis or hyd roureter. LEFT KIDNEY AND URETER: No solid masses. No significant calcifications. No hydronephrosis or hydr oureter. AORTA AND VESSELS: No aneurysm. No dissection. Renal arteries, SMA, celiac without stenosis. RETROPERITONEUM: No retroperitoneal adenopathy, hemorrhage or masses. BOWEL AND PERITONEAL CAVITY: The stomach is nondistended and poorly evaluated. No masses or inflamma tory changes. No free fluid or peritoneal masses. APPENDIX: Normal. PELVIS: No mass. No free fluid. Normal bladder. ABDOMINAL WALL: No masses. No hernias. BONES: No significant or acute findings. OTHER: No other significant finding. IMPRESSION: NO SIGNIFICANT OR ACUTE FINDING IN THE ABDOMEN OR PELVIS ON CT SCAN WITH IV CONTRAST. TECHNICAL DOCUMENTATION: JOB ID: [id number] Quality ID # [id number]: Final reports with documentation of one or more dose reduction techniques (e.g., Au tomated exposure control, adjustment of the mA and/or kV according to patient size, use of iterative reconstruction technique) 2010 [employer]- All Rights Reserved Reading location - IP/workstation name: [email or web address]
--- NOTE | 2018-05-07 17:49 | ER Document Report ---
Doctor's Note Notes: I personally and independently obtained patient history and examined the patient in conjunction with the APC and agree with the assessment, treatment plan and disposition of the patient as recorded by the APC, and have reviewed the APC's note. HISTORY OF PRESENT ILLNESS: Patient is a 43-year-old male with history of lupus that presents to the emergency department for chief complaint of right-sided abdominal pain. Patient reports his pain is been going on since Saturday, off-and-on stabbing sensation. He reports that he started taking methotrexate on Saturday, is not sure if that is what is leading to his symptoms today. ROS: Constitutional: Negative for fever. Cardiovascular: Negative for chest pain. Respiratory: Negative for shortness of breath. Gastrointestinal: Positive for abdominal pain Musculoskeletal: Negative for arm, leg or back pain Skin: Negative for rash. Neurological: Negative for weakness or numbness. Other than noted above, the 12 point review of systems was reviewed with the patient and were negative, all pertinent findings are included in the HPI. PHYSICAL EXAMINATION: Vital signs reviewed, nursing noted reviewed. GENERAL: Patient appears uncomfortable on exam. HEAD: Atraumatic, normocephalic. EYES: Eyes appear normal, conjunctiva are normal. ENT: nares patent, oropharynx clear without exudates. Moist mucous membranes. NECK: Normal range of motion, supple without lymphadenopathy LUNGS: Breath sounds clear to auscultation bilaterally and equal. No wheezes rales or rhonchi. HEART: Regular rate and rhythm without murmurs ABDOMEN: Soft, right upper quadrant right lower quadrant tenderness to palpation, normoactive bowel sounds. No rebound, guarding, or rigidity. No masses appreciated. EXTREMITIES: Nontender, good range of motion, no pitting or edema. NEUROLOGICAL: No focal neurological deficits. Moves all extremities spontaneously Motor and sensory grossly intact on exam. PSYCH: Normal mood, normal affect. SKIN: Warm, Dry, normal turgor, no rashes or lesions noted on exposed skin MEDICAL DECISION MAKING: Patient seen and examined, vital signs reviewed, worked up with ultrasound, CT imaging, and blood work, which is essentially all unremarkable, patient advised follow-up with his primary care, he was treated for his pain while in the ED. Please review detail APC documentation. *Note is created using voice recognition software and may contain spelling, syntax or grammatical errors. Laboratory 05/07/18 05/07/18 05/07/18 13:44 13:44 13:44 WBC 8.3 RBC 5.42 Hgb 15.3 Hct 45.5 MCV 84 MCH 28.2 MCHC 33.6 RDW 13.9 Plt Count 229 Seg Neutrophils % 88.0 H Lymphocytes % 9.8 L Monocytes % 1.7 L Eosinophils % 0.1 Basophils % 0.4 Absolute Neutrophils 7.3 Absolute Lymphocytes 0.8 Absolute Monocytes 0.1 Absolute Eosinophils 0.0 Absolute Basophils 0.0 Sodium Cancelled Potassium Cancelled Chloride Cancelled Carbon Dioxide Cancelled Anion Gap Cancelled BUN Cancelled Creatinine Cancelled Est GFR ( Amer) Cancelled Est GFR (Non-Af Amer) Cancelled Glucose Cancelled Calcium Cancelled Total Bilirubin Cancelled Direct Bilirubin Cancelled Neonat Total Bilirubin Cancelled Neonat Direct Bilirubin Cancelled Neonat Indirect Bili Cancelled AST Cancelled ALT Cancelled Alkaline Phosphatase Cancelled Total Protein Cancelled Albumin Cancelled Lipase Cancelled Urine Color YELLOW Urine Appearance CLEAR Urine pH 7.0 Ur Specific [place] 1.011 Urine Protein NEGATIVE Urine Glucose (UA) NEGATIVE Urine Ketones NEGATIVE Urine Blood NEGATIVE Urine Nitrite NEGATIVE Urine Bilirubin NEGATIVE Urine Urobilinogen NEGATIVE Ur Leukocyte Esterase NEGATIVE Urine WBC (Auto) 1 Urine Mucus (Auto) RARE Urine Ascorbic Acid NEGATIVE 05/07/18 16:06 WBC RBC Hgb Hct MCV MCH MCHC RDW Plt Count Seg Neutrophils % Lymphocytes % Monocytes % Eosinophils % Basophils % Absolute Neutrophils Absolute Lymphocytes Absolute Monocytes Absolute Eosinophils Absolute Basophils Sodium 135.8 L Potassium 3.5 L Chloride 94 L Carbon Dioxide 34 H Anion Gap 8 BUN 15 Creatinine 1.11 Est GFR ( Amer) > 60 Est GFR (Non-Af Amer) > 60 Glucose 110 Calcium 9.4 Total Bilirubin 0.8 Direct Bilirubin 0.2 Neonat Total Bilirubin Not Reportable Neonat Direct Bilirubin Not Reportable Neonat Indirect Bili Not Reportable AST 25 ALT 48 Alkaline Phosphatase 70 Total Protein 7.6 Albumin 3.9 Lipase 44.1 Urine Color Urine Appearance Urine pH Ur Specific [place] Urine Protein Urine Glucose (UA) Urine Ketones Urine Blood Urine Nitrite Urine Bilirubin Urine Urobilinogen Ur Leukocyte Esterase Urine WBC (Auto) Urine Mucus (Auto) Urine Ascorbic Acid Abdomen Ultrasound 05/07/18 13:33 IMPRESSION: NORMAL RIGHT UPPER QUADRANT ULTRASOUND. Abdomen/Pelvis CT 05/07/18 15:36 IMPRESSION: NO SIGNIFICANT OR ACUTE FINDING IN THE ABDOMEN OR PELVIS ON CT SCAN WITH IV CONTRAST.
[2018-05-07 18:09] VITALS: BP 114/62
== END 2018-05-07 18:09 | disposition home or self-care (01) ==
LOC: ER 12:36
DX: R10.31 Right lower quadrant pain (principal); R10.11 Right upper quadrant pain; Z87.19 Personal history of other diseases of the digestive system; Z91.048 Other nonmedicinal substance allergy status; Z88.5 Allergy status to narcotic agent; Z88.8 Allergy status to other drugs, medicaments and biological substances; Z88.0 Allergy status to penicillin
CPT/HCPCS: 99284; 96361; 96374; 96375; 36415; 83690; 85025; 80053; 81001; 76705; 74177; J3010; J1885; J2405; J7030

== ENCOUNTER 2018-08-01 08:49 | Emergency (ER) | payer MEDICARE, MEDICAID ==
[2018-08-01] MEDS ORDERED: KETOROLAC TROMETHAMINE INJ/PF 30 MG/1 ML SDV IM ONE (09:32)
--- NOTE | 2018-08-01 09:35 | ER Document Report ---
ED Medical Screen (RME) - General Chief Complaint: Dizziness Stated Complaint: JOINT PAIN Time Seen by Provider: 08/01/18 09:29 Primary Care Provider: GUERO BRIAN MD [Primary Care Provider] - Follow up as needed Mode of Arrival: Ambulatory Information source: Patient Notes: Patient presents complaining of multiple complaints including dizziness for 4 days, nosebleed yesterday and muscle twitching that started yesterday. Patient states that he has a history of lupus and RA and he has not had good pain control and he has been having joint pain as well. Patient states he has been having difficulty getting in to see his primary doctor. Patient states that his old primary doctor would only address his mental health concerns and would not address his symptoms. Patient with tangential speech in triage I have greeted and performed a rapid initial assessment of this patient. A comprehensive ED assessment and evaluation of the patient, analysis of test results and completion of the medical decision making process will be conducted by additional ED providers. TRAVEL OUTSIDE OF THE [place] IN LAST 30 DAYS: No - Related Data Allergies/Adverse Reactions: morphine Allergy (Intermediate, Verified 08/01/18 08:52) Facial swelling diphenhydramine [From Benadryl] Allergy (Verified 08/01/18 08:52) divalproex sodium [From Depakote] Allergy (Verified 08/01/18 08:52) levetiracetam [From Keppra] Allergy (Verified 08/01/18 08:52) Hives meperidine [From Demerol] Allergy (Verified 08/01/18 08:52) Penicillins Allergy (Verified 08/01/18 08:52) red dye Allergy (Verified 08/01/18 08:52) yellow dye Allergy (Verified 08/01/18 08:52) pine Allergy (Uncoded 08/01/18 08:52) Past Medical History - Past Medical History Cardiac Medical History: Denies: Hx Coronary Artery Disease, Hx Heart Attack, Hx Hypertension Pulmonary Medical History: Reports: Hx Pneumonia - X7 Denies: Hx Asthma, Hx Bronchitis, Hx COPD Neurological Medical History: Reports: Hx Migraine, Hx Seizures - CONVULSIONS DISORDER/neuro recently r/o seizure disorder. Denies: Hx Cerebrovascular Accident Renal/ Medical History: Denies: Hx Peritoneal Dialysis GI Medical History: Reports: Hx Gastroesophageal Reflux Disease. Denies: Hx Hepatitis, Hx Hiatal Hernia, Hx Ulcer Musculoskeltal Medical History: Reports Hx Arthritis - rheumatoid, Reports Hx Musculoskeletal Trauma Psychiatric Medical History: Reports: Hx Depression - PTSD Infectious Medical History: Denies: Hx Hepatitis Past Surgical History: Reports: Hx Abdominal Surgery - feeding tube as , Hx Orthopedic Surgery - left foot, left wrist, ganglion cyst. Denies: Hx Open Heart Surgery, Hx Pacemaker - Immunizations Immunizations up to date: Yes Hx Diphtheria, Pertussis, Tetanus Vaccination: Yes Physical Exam - Vital signs Vitals: Temp Pulse Resp BP Pulse Ox 98.2 F 77 18 110/72 100 08/01/18 08:54 08/01/18 08:54 08/01/18 08:54 08/01/18 08:54 08/01/18 08:54 - General General appearance: Appears well, Alert In distress: None - Psychological Associated symptoms: Tangential speech Course - Vital Signs Vital signs: Temp Pulse Resp BP Pulse Ox 98.2 F 77 18 110/72 100 08/01/18 08:54 08/01/18 08:54 08/01/18 08:54 08/01/18 08:54 08/01/18 08:54 Doctor's Discharge - Discharge Referrals: GUERO BRIAN MD [Primary Care Provider] - Follow up as needed
[2018-08-01] MEDS ORDERED: IBUPROFEN 800 MG TABLET PO ONE (09:41)
[2018-08-01 09:48] LABS: ABSOLUTE EOSINOPHILS # (AUTO) 0.1 10^3/uL (0.0-0.6); ABSOLUTE LYMPHOCYTES (AUTO) 1.5 10^3/uL (0.5-4.7); ABSOLUTE MONOCYTES (AUTO) 0.5 10^3/uL (0.1-1.4); BASOPHILS % (AUTO) 0.4 % (0-2); EOSINOPHILS % (AUTO) 1.7 % (0-6); HEMATOCRIT 43.6 % (37.9-51.0); HEMOGLOBIN 14.7 g/dL (13.5-17.0); LYMPHOCYTES % (AUTO) 30.2 % (13-45); MEAN CORPUSCULAR HEMOGLOBIN 28.4 pg (27.0-33.4); MEAN CORPUSCULAR HGB CONC 33.6 g/dL (32.0-36.0); MEAN CORPUSCULAR VOLUME 85 fl (80-97); MONOCYTES % (AUTO) 9.4 % (3-13); PLATELET COUNT 219 10^3/uL (150-450); RED BLOOD COUNT 5.16 10^6/uL (4.35-5.55); RED CELL DISTRIBUTION WIDTH 13.9 % (11.5-14.0); SEGMENTED NEUTROPHILS % (AUTO) 58.3 % (42-78); TOTAL CELLS COUNTED % (AUTO) 100 %; WHITE BLOOD COUNT 5.1 10^3/uL (4.0-10.5)
[2018-08-01 10:11] LABS: ANION GAP 9 (5-19); BLOOD UREA NITROGEN 17 mg/dL (7-20); CALCIUM 9.6 mg/dL (8.4-10.2); CARBON DIOXIDE 35 mmol/L (22-30); CHLORIDE 93 mmol/L (98-107); CREATINE KINASE 59 U/L (55-170); GLUCOSE 129 mg/dL (75-110); POTASSIUM 3.5 mmol/L (3.6-5.0); SODIUM 137.3 mmol/L (137-145)
--- NOTE | 2018-08-01 10:40 | ER Document Report ---
ED General - General Chief Complaint: Dizziness Stated Complaint: JOINT PAIN Time Seen by Provider: 08/01/18 09:29 Primary Care Provider: GUERO BRIAN MD [Primary Care Provider] - Follow up as needed Mode of Arrival: Ambulatory Notes: 43-year-old male presents with chronic pain. His words are "chronic pain from my lupus." Been going on for years. Mostly in his joints. Left ankle worse than the others. No fever chills. Positive intermittent dizziness. Patient takes methotrexate meloxicam but no pain medicine. 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 He denies other symptoms at this time. Work-up ordered at triage. TRAVEL OUTSIDE OF THE [place] IN LAST 30 DAYS: No - Related Data Allergies/Adverse Reactions: morphine Allergy (Intermediate, Verified 08/01/18 08:52) Facial swelling diphenhydramine [From Benadryl] Allergy (Verified 08/01/18 08:52) divalproex sodium [From Depakote] Allergy (Verified 08/01/18 08:52) levetiracetam [From Keppra] Allergy (Verified 08/01/18 08:52) Hives meperidine [From Demerol] Allergy (Verified 08/01/18 08:52) Penicillins Allergy (Verified 08/01/18 08:52) red dye Allergy (Verified 08/01/18 08:52) yellow dye Allergy (Verified 08/01/18 08:52) pine Allergy (Uncoded 08/01/18 08:52) Past Medical History - General Information source: Patient - Social History Smoking Status: Unknown if Ever Smoked Family History: None - Past Medical History Cardiac Medical History: Denies: Hx Coronary Artery Disease, Hx Heart Attack, Hx Hypertension Pulmonary Medical History: Reports: Hx Pneumonia - X7 Denies: Hx Asthma, Hx Bronchitis, Hx COPD Neurological Medical History: Reports: Hx Migraine, Hx Seizures - CONVULSIONS DISORDER/neuro recently r/o seizure disorder. Denies: Hx Cerebrovascular Accid ent Renal/ Medical History: Denies: Hx Peritoneal Dialysis GI Medical History: Reports: Hx Gastroesophageal Reflux Disease. Denies: Hx Hepatitis, Hx Hiatal Hernia, Hx Ulcer Musculoskeletal Medical History: Reports Hx Arthritis - rheumatoid, Reports Hx Musculoskeletal Trauma Psychiatric Medical History: Reports: Hx Depression - PTSD Infectious Medical History: Denies: Hx Hepatitis Past Surgical History: Reports: Hx Abdominal Surgery - feeding tube as infant, Hx Orthopedic Surgery - left foot, left wrist, ganglion cyst. Denies: Hx Open Heart Surgery, Hx Pacemaker - Immunizations Immunizations up to date: Yes Hx Diphtheria, Pertussis, Tetanus Vaccination: Yes Review of Systems - Review of Systems Notes: REVIEW OF SYSTEMS GEN: Denies fever, chills, weight loss ENT: Denies sore throat, nasal discharge, ear pain EYES: Denies blurry vision, eye pain, discharge CV: Denies chest pain, palpitations, edema RESP: Denies cough, shortness of breath, wheezing GI: Denies abdominal pain, nausea, vomiting, diarrhea MSK: See HPI SKIN: Denies rash, skin lesions LYMPH: Denies swollen glands/lymph nodes NEURO: Denies headache, focal weakness or numbness, dizziness PSYCH: Denies depression, suicidal or homicidal ideation PHYSICAL EXAMINATION General: No acute distress, well-nourished Head: Atraumatic, normocephalic ENT: Mouth normal, oropharynx moist, no exudates or tonsillar enlargement Eyes: Conjunctiva normal, pupils equal, lids normal Neck: No JVD, supple, no guarding CVS: Normal rate, regular rhythm, no murmurs Resp: No resp distress, equal and normal breath sounds bilaterally GI: Nondistended, soft, no tenderness to palpation, no rebound or guarding Ext: No deformities, no edema, normal range of motion in upper and lower ext. No effusions noted. No deformities noted. Back: No CVA or midline TTP Skin: No rash, warm Lymphatic: No lymphadeopathy noted Neuro: Awake, alert. Face symmetric. GCS 15. Physical Exam - Vital signs Vitals: Temp Pulse Resp BP Pulse Ox 98.2 F 77 18 110/72 100 08/01/18 08:54 08/01/18 08:54 08/01/18 08:54 08/01/18 08:54 08/01/18 08:54 Course - Re-evaluation Re-evalutation: 08/01/18 10:38 Chronic joint pain secondary to lupus, time course not suggestive of acute flare. Vitals normal. Dizzy but no focal findings on exam. Labs ordered at triage be followed up and if normal patient will be discharged, to discuss with his care team regarding chronic pain. Will not be receiving controlled substances in the ED or for discharge secondary to the chronic nature of his pain and the lack of acute findings on exam. I have discussed with the patient there likely diagnosis, aftercare plan, follow-up plans and my usual and customary return precautions. They verbalized understanding of this. - Vital Signs Vital signs: Temp Pulse Resp BP Pulse Ox 98.2 F 77 18 110/72 100 08/01/18 08:54 08/01/18 08:54 08/01/18 08:54 08/01/18 08:54 08/01/18 08:54 - Laboratory Result Diagrams: 08/01/18 09:40 08/01/18 09:40 Laboratory results interpreted by me: 08/01/18 09:40 Potassium 3.5 L Chloride 93 L Carbon Dioxide 35 H Glucose 129 H Discharge - Discharge Clinical Impression: Chronic joint pain Condition: Good Disposition: HOME, SELF-CARE Instructions: Dizziness ([facility]) Additional Instructions: Please speak with your chief growth officer, pain doctor or primary care doctor regarding management of your chronic pain. We did not find any emergencies today in the emergency department. Referrals: GUERO BRIAN MD [Primary Care Provider] - Follow up as needed
[2018-08-01 11:00] VITALS: BP 112/70
--- NOTE | 2018-08-01 19:16 | EKG REPORT ---
SEVERITY:- NORMAL ECG - SINUS RHYTHM : Confirmed by: Janina Bob MD 01-Aug-2018 19:15:41
== END 2018-08-01 11:00 | disposition home or self-care (01) ==
LOC: ER 08:49
DX: G89.29 Other chronic pain (principal); M25.572 Pain in left ankle and joints of left foot; Z79.899 Other long term (current) drug therapy; Z79.1 Long term (current) use of non-steroidal anti-inflammatories (NSAID); Z88.5 Allergy status to narcotic agent; Z88.8 Allergy status to other drugs, medicaments and biological substances; Z88.0 Allergy status to penicillin; Z91.048 Other nonmedicinal substance allergy status
CPT/HCPCS: 93005; 99283; 36415; 82550; 85025; 80048; 93010; A9270

== ENCOUNTER → 2018-08-29 | Outpatient (CLI) | payer MEDICARE, MEDICAID ==
--- NOTE | 2018-08-29 16:36 | RADIOLOGY REPORT (SQ) ---
EXAM DESCRIPTION: KNEE LEFT 4 VIEW COMPLETED DATE/TIME: 08/29/2018 4:22 pm REASON FOR STUDY: M05.80 OTH RHEUMATOID ARTHRITIS WITH RHEUMATOID FACTOR OF UNSP SITE M05.80 OTH RH EUMATOID ARTHRITIS WITH RHEUMATOID FACTOR OF UN COMPARISON: None. NUMBER OF VIEWS: Four views. TECHNIQUE: AP, lateral, and both oblique radiographic images acquired of the left knee. LIMITATIONS: None. FINDINGS: MINERALIZATION: Normal. BONES: No acute fracture or dislocation. No worrisome bone lesions. JOINT: No effusion. SOFT TISSUES: No soft tissue swelling. No radio-opaque foreign body. OTHER: No other significant finding. IMPRESSION: NEGATIVE STUDY OF THE LEFT KNEE. NO RADIOGRAPHIC EVIDENCE OF ACUTE INJURY. TECHNICAL DOCUMENTATION: JOB ID: [id number] [employer]- All Rights Reserved Reading location - IP/workstation name: [email or web address]
== END ==
LOC: RAD 16:05
PROVIDERS: ATTEND Nurse Practitioner Family
DX: M05.862 Other rheumatoid arthritis with rheumatoid factor of left knee (principal)

== ENCOUNTER → 2018-10-07 | Outpatient (CLI) | payer MEDICARE, MEDICAID ==
--- NOTE | 2018-10-07 13:00 | ST Modified Barium Swallow ---
Recommendation - Recommendations Recommendations: Recommend short course of dysphagia treatment to address compensatory strategies and home exercise program to improve swallow function. Recommend follow up with ENT due to the nature of the swallowing deficits seen. 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 Medical Diagnoses - Medical Diagnoses Medical Diagnosis Description & ICD-10 Code(s): dysphagia R13.10 Other Medical Diagnoses/Co-Morbidities: per patient report: GERD, lupus ST Modified Barium Swallow - General Date: 10/07/18 Referring Physician: Dr. Salomon Date of Onset: 09/11/14 - Approximate onset date, patient reports ongoing difficulties since childhood Reason for Referral: difficulty swallowing - History History obtained from: Patient -: Medical - Patient acted as his own historian. He reports that he has to use multiple swallows to clear food from his throat, and he states that this is a problem he has had since childhood. He also reports that he was tube fed as an , was unable to specifically state why this is as the patient was adopted as an infant. He reports coughing specifically with milk, and notices more sticking in the throat with meats. Patient also reports having allergic reactions, which cause swelling in the throat and increased swallowing difficulties. No recent pneumonia or bronchitis reported. States that he was see n by an ENT, who he states said he had a "small throat". He states that he also feels that he has to "swallow when I've been talking a lot". The patient also reports having neck "twitches", which will turn his head in either direction, one of which was witnessed in this assessment. Patient is unsure of underlying etiology. Medications: per patient report: prednisone, omeprazole, potasisum, lupus medication Allergies: per patient report: watermelon, cantelope, red and yellow dye. - Functional Status Prior Functional Status: INDEPENDENT: feeding - long standing globus sensation Current Functional Limitations: feeding - difficulty swallowing - Subjective Patient/caregiver goal(s): safe swallow Cognitive-Linguistic Function: WNL - patient reports some difficulty with comprehension skills Speech Intelligibility: WNL Current Nutritional Means: PO Current PO diet: Regular Current symptoms: c/o Globus sensation Pain: Patient reports, 0/5 - Objective Assessment: Upright, Left Lateral - Food Trials Used Food trials used: Thin liquids, Pureed, Regular The patient: Was Able to Self Feed - Oral-Motor Skills Dentition: Partial Velo-pharyngeal function: Unremarkable - Assessment Oral prep: Normal Labial closure: Adequate Leakage: None Mastication: Adequate Lingual Movement: Normal Oral stage: Normal for this Procedure - Pharyngeal Stage Initiation of Pharyngeal Stage Reflex: Normal Decreased laryngeal elevation: Yes Reduced Velopharyngeal Closure: no Reduced pressure generation: Yes reduced tongue-based retraction: Yes Reduced Thyro-Hyoid approximation: Yes Reduced epiglottic excursion: Yes - poor visualization of the epiglottis, poor inversion Reduced pharyngeal peristalsis/contraction: Yes Multiple Swallows with: Cleared w/ Dry Swallow - required multiple Post-swallow residulas vallecular: Mild Post-Swallow residuals in pyriforms: Moderate Post-Swallow Residuals: throughout pharynx Reduced Cricopharyngeal opening: Yes Pharyngeal Stage Comments: Patient was unable to take sequential swallows of liquid due to requiring 2-3 swallows per sip of liquid. - Esophageal Stage Esophageal Stage: Signs of dysfunctional cricopharyneal opening. - Fall Risk Assessment Medications/Conditions that increase fall risks include: Antidepressants, sedatives, anti-arrhythmic, diuretic, benzodiazipenes, neuroleptics. BP regulation problems, cardiac problems, balance or gait deficits, neurological problems. Fall Risk Actions Taken: No action needed - Behavioral Observations During evaluation process patient: was cooperative, able to answer questions - Treatment / Educational Needs: Treatment/Education Needs: Treatment consisted of patient education on the role of the Speech Pathologist. Patient's plan of care and golas were communicated as well as scheduling and attendance policies. Recommendations for initial home program were shared. Patient demonstrated understanding and verbalized agreement. - Impression/Summary Laryngeal Penetration: Yes, during swallow - with thin liquids, after swallow - on residuals Tracheal Aspiration: no Patient presents with: Pharyngeal stage dysph. Risk of Aspiration: Mild Evaluation and Findings: The patient presents with a moderate pharyngeal phase dysphagia. The patient demonstrates signs of Clayton Syndrome, with noted o vercalcification of stylohyoid and hyoid processes. Other structual abnormalities were noted, such as reduced presence of an epiglottis and a soft tissue variance near but inferior to the level of the upper esophageal sphyncter. The pharyngeal phase of the swallow was discoordinated, with significant residue throughout the pharynx which required multiple swallows to clear. Penetration of thin liquids was seen, but staying above the level of the vocal folds. Some penetration of residuals also seen, but this cleared easily with a spontaneous dry swallow. - Recommendations Solid diet recommendations: Mechanical Soft Liquid Diet Modification: Thin Pt/Family education and followup with MD: Yes Dysphagia therapy with RN ALLERGY: yes Recommended techniques: Fully Upright During Meal, Small Bites and Sips, Alternate Bites/Sips Information, Precautions and Recommendations: Patient (Written), Patient (Verbal), Family Member (Verbal) - findings also discussed with the patient's per the patient's request - Time Total Time: 30 - Plan of Care Summary: Recommending outpatient therapy to address pharyngeal phase deficits, including reduced base of tongue retraction and pharyngeal constriction. Goals to be established by treating therapist. Patient to follow-up with referring physician: Yes Strategies to optimize patient understanding include:: ongoing assessment of educational needs, implementation of educational strategies, and re-education. - - -: Thank you for the opportunity to work with this patient and his/her family. Should you have any questions about this patient's plan or progress, I can be reached at [phone].
--- NOTE | 2018-10-07 14:31 | RADIOLOGY REPORT (SQ) ---
EXAM DESCRIPTION: JENAE SWALLOW COMPLETED DATE/TIME: 10/07/2018 9:19 am REASON FOR STUDY: R13.10 DYSPHAGIA, UNSPECIFIED R13.10 DYSPHAGIA, UNSPECIFIED COMPARISON: None. TECHNIQUE: Videofluoroscopic swallowing examination was performed in conjunction with speech patholo gy. Videofluoroscopic imaging was obtained and reviewed and these are the findings: RADIATION DOSE: Fluoro time 3.02 minutes 1 images saved to PACS. LIMITATIONS: None FINDINGS: The patient was brought into the fluoro room and placed upright on a modified barium swall ow chair. The patient was then given multiple consistencies mixed with barium to swallow under live fluoroscopic video guidance. According to the Speech Pathologist there was penetration with thin bar ium, but no aspiration identified. Cricopharyngeus hypertrophy is noted. 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 Please refer to the [facility] pathology report further details. IMPRESSION: LARYNGEAL PENETRATION WITH THIN BARIUM. NO EVIDENCE OF ASPIRATION. PLEASE SEE SPEECH PA THOLOGIST REPORT FOR OTHER FINDINGS AND RECOMMENDATIONS. 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
== END ==
LOC: RAD 08:18
PROVIDERS: ATTEND Internal Medicine Pulmonary Disease
DX: R13.13 Dysphagia, pharyngeal phase (principal)
CPT/HCPCS: 74230

== ENCOUNTER 2019-02-01 14:57 | Emergency (ER) | payer MEDICARE, MEDICAID ==
--- NOTE | 2019-02-01 15:55 | ER Document Report ---
ED Medical Screen (RME) - General Chief Complaint: Flank Pain Stated Complaint: FLANK PAIN Time Seen by Provider: 02/01/19 15:48 Information source: Patient Notes: Patient presents with right flank pain that started this morning. Patient states he will have occasional muscle twitching. Patient denies any abdominal tenderness, fever, or urinary symptoms. Patient denies any cough or cold symptoms. hx: Lupus, PTSD, bipolar, psychogenic movement disorder I have greeted and performed a rapid initial assessment of this patient. A comprehensive ED assessment and evaluation of the patient, analysis of test results and completion of the medical decision making process will be conducted by additional ED providers. TRAVEL OUTSIDE OF THE [place] IN LAST 30 DAYS: No - Related Data Allergies/Adverse Reactions: morphine Allergy (Intermediate, Verified 02/01/19 15:49) Facial swelling diphenhydramine [From Benadryl] Allergy (Verified 02/01/19 15:49) divalproex sodium [From Depakote] Allergy (Verified 02/01/19 15:49) levetiracetam [From Keppra] Allergy (Verified 02/01/19 15:49) Hives meperidine [From Demerol] Allergy (Verified 02/01/19 15:49) Penicillins Allergy (Verified 02/01/19 15:49) red dye Allergy (Verified 02/01/19 15:49) yellow dye Allergy (Verified 02/01/19 15:49) pine Allergy (Uncoded 02/01/19 15:49) Past Medical History - Past Medical History Cardiac Medical History: Denies: Hx Coronary Artery Disease, Hx Heart Attack, Hx Hypertension Pulmonary Medical History: Reports: Hx Pneumonia - X7 Denies: Hx Asthma, Hx Bronchitis, Hx COPD Neurological Medical History: Reports: Hx Migraine, Hx Seizures - CONVULSIONS DISORDER/neuro recently r/o seizure disorder. Denies: Hx Cerebrovascular Accident Renal/ Medical History: Denies: Hx Peritoneal Dialysis GI Medical History: Reports: Hx Gastroesophageal Reflux Disease. Denies: Hx Hepatitis, Hx Hiatal Hernia, Hx Ulcer Musculoskeltal Medical History: Reports Hx Arthritis - rheumatoid, Reports Hx Musculoskeletal Trauma Psychiatric Medical History: Reports: Hx Depression - PTSD Infectious Medical History: Denies: Hx Hepatitis Past Surgical History: Reports: Hx Abdominal Surgery - feeding tube as , Hx Orthopedic Surgery - left foot, left wrist, ganglion cyst. Denies: Hx Open Heart Surgery, Hx Pacemaker - Immunizations Immunizations up to date: Yes Hx Diphtheria, Pertussis, Tetanus Vaccination: Yes Physical Exam - Vital signs Vitals: Temp Pulse Resp BP Pulse Ox 98.4 F 87 16 131/67 H 97 02/01/19 15:10 02/01/19 15:10 02/01/19 15:10 02/01/19 15:10 02/01/19 15:10 - Back Back: CVA tenderness - Right Course - Vital Signs Vital signs: Temp Pulse Resp BP Pulse Ox 98.4 F 87 16 131/67 H 97 02/01/19 15:10 02/01/19 15:10 02/01/19 15:10 02/01/19 15:10 02/01/19 15:10
[2019-02-01 16:33] LABS: ABSOLUTE BASOPHILS # (AUTO) 0.1 10^3/uL (0.0-0.2); ABSOLUTE LYMPHOCYTES (AUTO) 1.1 10^3/uL (0.5-4.7); ABSOLUTE MONOCYTES (AUTO) 0.4 10^3/uL (0.1-1.4); ABSOLUTE NEUT (AUTO) 6.4 10^3/uL (1.7-8.2); BASOPHILS % (AUTO) 0.9 % (0-2); EOSINOPHILS % (AUTO) 0.3 % (0-6); HEMATOCRIT 44.4 % (37.9-51.0); HEMOGLOBIN 15.1 g/dL (13.5-17.0); LYMPHOCYTES % (AUTO) 14.3 % (13-45); MEAN CORPUSCULAR HEMOGLOBIN 28.5 pg (27.0-33.4); MEAN CORPUSCULAR HGB CONC 33.9 g/dL (32.0-36.0); MEAN CORPUSCULAR VOLUME 84 fl (80-97); MONOCYTES % (AUTO) 5.2 % (3-13); PLATELET COUNT 278 10^3/uL (150-450); RED BLOOD COUNT 5.28 10^6/uL (4.35-5.55); RED CELL DISTRIBUTION WIDTH 13.8 % (11.5-14.0); SEGMENTED NEUTROPHILS % (AUTO) 79.3 % (42-78); TOTAL CELLS COUNTED % (AUTO) 100 %
[2019-02-01 16:33] LABS: APPEARANCE,URINE CLEAR; BILIRUBIN,URINE NEGATIVE (NEGATIVE); COLOR,URINE STRAW; GLUCOSE, URINE NEGATIVE (NEGATIVE); KETONES,URINE NEGATIVE (NEGATIVE); LEUKOCYTE ESTERASE,URINE NEGATIVE (NEGATIVE); NITRITE,URINE NEGATIVE (NEGATIVE); PROTEIN,URINE NEGATIVE (NEGATIVE); URINE SPECIFIC GRAVITY 1.003; UROBILINOGEN,URINE NEGATIVE mg/dL (<2.0)
[2019-02-01] MEDS ORDERED: KETOROLAC TROMETHAMINE 60 MG/2 ML SDV IM ONE (16:46)
[2019-02-01 16:47] LABS: ALBUMIN 4.6 g/dL (3.5-5.0); ALKALINE PHOSPHATASE 89 U/L (38-126); ANION GAP 15 (5-19); ASPARTATE AMINO TRANSFERASE 31 U/L (17-59); BILIRUBIN,DIRECT 0.1 mg/dL (0.0-0.4); BILIRUBIN,TOTAL 0.6 mg/dL (0.2-1.3); BLOOD UREA NITROGEN 17 mg/dL (7-20); CALCIUM 10.2 mg/dL (8.4-10.2); CARBON DIOXIDE 35 mmol/L (22-30); CHLORIDE 89 mmol/L (98-107); CREATINE KINASE 70 U/L (55-170); GLUCOSE 115 mg/dL (75-110); TOTAL PROTEIN 8.7 g/dL (6.3-8.2)
[2019-02-01] MEDS ORDERED: POTASSIUM CHLORIDE 20 MEQ PACKET PO ONE (16:49)
--- NOTE | 2019-02-01 17:24 | ER Document Report ---
ED General - General Chief Complaint: Flank Pain Stated Complaint: FLANK PAIN Time Seen by Provider: 02/01/19 15:48 Primary Care Provider: KAY MCCAIN PA-C [Primary Care Provider] - Follow up as needed Notes: 44-year-old male with history of lupus presents with right flank pain that began this morning. Patient states it feels like a muscle spasm and patient had 4 episodes this morning and then 2 more after pentecostalism prompting him to seek evaluation in the ER. Patient denies any nausea/vomiting/diarrhea/constipation, saddle anesthesia, urinary symptoms, abdominal pain, chest pain, or shortness of breath. Patient denies any history of kidney stones, pyelonephritis, or urinary infection. TRAVEL OUTSIDE OF THE [place] IN LAST 30 DAYS: No - Related Data Allergies/Adverse Reactions: morphine Allergy (Intermediate, Verified 02/01/19 15:49) Facial swelling diphenhydramine [From Benadryl] Allergy (Verified 02/01/19 15:49) divalproex sodium [From Depakote] Allergy (Verified 02/01/19 15:49) levetiracetam [From Keppra] Allergy (Verified 02/01/19 15:49) Hives meperidine [From Demerol] Allergy (Verified 02/01/19 15:49) Penicillins Allergy (Verified 02/01/19 15:49) red dye Allergy (Verified 02/01/19 15:49) yellow dye Allergy (Verified 02/01/19 15:49) pine Allergy (Uncoded 02/01/19 15:49) Home Medications: oxycodone Past Medical History - General Information source: Patient - Social History Smoking Status: Never Smoker Chew tobacco use (# tins/day): No Frequency of alcohol use: None Drug Abuse: None Family History: None Patient has suicidal ideation: No Patient has homicidal ideation: No - Past Medical History Cardiac Medical History: Denies: Hx Coronary Artery Disease, Hx Heart Attack, Hx Hypertension Pulmonary Medical History: Reports: Hx Pneumonia - X7 Denies: Hx Asthma, Hx Bronchitis, Hx COPD Neurological Medical History: Reports: Hx Migraine, Hx Seizures - CONVULSIONS DISORDER/neuro recently r/o seizure disorder. Denies: Hx Cerebrovascular Accident Renal/ Medical History: Denies: Hx Peritoneal Dialysis GI Medical History: Reports: Hx Gastroesophageal Reflux Disease. Denies: Hx Hepatitis, Hx Hiatal Hernia, Hx Ulcer Musculoskeletal Medical History: Reports Hx Arthritis - rheumatoid, Reports Hx Musculoskeletal Trauma Psychiatric Medical History: Reports: Hx Depression - PTSD Infectious Medical History: Denies: Hx Hepatitis Past Surgical History: Reports: Hx Abdominal Surgery - feeding tube as , Hx Orthopedic Surgery - left foot, left wrist, ganglion cyst. Denies: Hx Open Heart Surgery, Hx Pacemaker - Immunizations Immunizations up to date: Yes Hx Diphtheria, Pertussis, Tetanus Vaccination: Yes Review of Systems - Review of Systems Notes: Constitutional: Negative for fever. HENT: Negative for sore throat. Eyes: Negative for visual changes. Cardiovascular: Negative for chest pain. Respiratory: Negative for shortness of breath. Gastrointestinal: Positive for flank pain. Negative for abdominal pain, vomiting or diarrhea. Genitourinary: Negative for dysuria. Musculoskeletal: Negative for back pain. Skin: Negative for rash. Neurological: Negative for headaches, weakness or numbness. 10 point ROS negative except as marked above and in HPI. Physical Exam - Vital signs Vitals: Temp Pulse Resp BP Pulse Ox 98.4 F 87 16 131/67 H 97 02/01/19 15:10 02/01/19 15:10 02/01/19 15:10 02/01/19 15:10 02/01/19 15:10 - Notes Notes: GENERAL: Well-appearing, well-nourished and in no acute distress. HEAD: Atraumatic, normocephalic. EYES: Extraocular movements intact, sclera anicteric, conjunctiva are normal. NECK: Normal range of motion, supple without lymphadenopathy or JVD. LUNGS: Breath sounds clear to auscultation bilaterally and equal. No wheezes rales or rhonchi. HEART: Regular rate and rhythm without murmurs, rubs or gallops. ABDOMEN: Soft, nontender. No guarding, no rebound. No masses appreciated. Mild right CVA tenderness. EXTREMITIES: Normal range of motion, no pitting or edema. No clubbing or cyanosis. NEUROLOGICAL: Cranial nerves II through XII grossly intact. Normal speech, normal gait. PSYCH: Normal mood, normal affect. SKIN: Warm, Dry, normal turgor, no rashes or lesions noted. Course - Re-evaluation Re-evalutation: 02/01/19 44-year-old male presents with right flank pain with no associated symp toms. Patient is afebrile. Nontoxic, well-appearing. Abdomen soft nontender. Mild CVA tenderness noted. Musculoskeletal versus kidney stone. CBC shows no leukocytosis with a white count of 8 and is otherwise unremarkable. CMP shows a potassium of 3 and creatinine 1.39 and magnesium of 2.2. But is otherwise unremarkable. Urine is negative with no blood or RBCs. Potassium was replenished in ER today. Toradol shot given. Pain is most likely due to musculoskeletal. Discussed results with patient. Patient prescribed ibuprofen with muscle relaxers with sedation warning. Patient voices understanding and agrees with plan of care. - Vital Signs Vital signs: Temp Pulse Resp BP Pulse Ox 98.4 F 87 16 131/67 H 97 02/01/19 15:49 02/01/19 15:10 02/01/19 15:49 02/01/19 15:10 02/01/19 15:49 - Laboratory Result Diagrams: 02/01/19 16:19 02/01/19 16:19 Laboratory results interpreted by me: 02/01/19 02/01/19 16:19 16:19 Seg Neutrophils % 79.3 H Potassium 3.0 L* Chloride 89 L Carbon Dioxide 35 H Creatinine 1.39 H Est GFR (MDRD) Non-Af 55 L Glucose 115 H Total Protein 8.7 H Discharge - Discharge Clinical Impression: Musculoskeletal pain, Flank pain, Hypokalemia Condition: Stable Disposition: HOME, SELF-CARE Instructions: Toradol Injection ([facility]) Additional Instructions: Your urine test did not show any blood or infection. Your blood counts were all normal. Your other labs indicated a low potassium which was replenished today in the ER. Your other lab work was reassuring. Your pain is most likely musculoskeletal in nature. Please take medicines as prescribed. Do not drink or drive while taking Flexeril as it may make you drowsy. Please follow-up with your primary care doctor in 3 to 5 days. Return immediately to ER if you start having any worsening symptoms, including worsening pain, difficulty with urinating or defecating, numbness to your private area, blood in your urine, nausea/vomiting, pain moving to your abdomen, chest pain, shortness of breath, or any other symptoms that are concerning to you. Prescriptions: Cyclobenzaprine HCl [Flexeril 5 mg Tablet] 5 mg PO TID #15 tablet Ibuprofen [Motrin 800 mg Tablet] 800 mg PO Q8H PRN #30 tab PRN Reason: Forms: Return to Work Referrals: KAY MCCAIN PA-C [Primary Care Provider] - Follow up in 3-5 days
[2019-02-01 18:08] VITALS: BP 105/64
== END 2019-02-01 18:28 | disposition home or self-care (01) ==
LOC: ER 14:57
DX: R10.9 Unspecified abdominal pain (principal); E87.6 Hypokalemia; Z88.6 Allergy status to analgesic agent; Z88.0 Allergy status to penicillin
CPT/HCPCS: 99284; 96372; 36415; 82550; 83735; 85025; 80053; 81001; J1885; J3490

== ENCOUNTER → 2019-08-27 | Outpatient (CLI) | payer MEDICARE, MEDICAID ==
--- NOTE | 2019-08-27 12:03 | RADIOLOGY REPORT (SQ) ---
EXAM DESCRIPTION: MRI CERVICAL SPINE WITHOUT IMAGES COMPLETED DATE/TIME: 08/27/2019 11:25 am REASON FOR STUDY: CERVICAL RADICULOPATHY (M54.12) M54.12 RADICULOPATHY, CERVICAL REGION COMPARISON: None. TECHNIQUE: Sagittal and Axial imaging includes T1, T2, STIR and gradient echo sequences. LIMITATIONS: None. FINDINGS: ALIGNMENT: Normal. VERTEBRAE: Intact. BONE MARROW: Normal. No marrow replacement or reactive changes. DISCS: Normal. No significant abnormal signal or loss of height. HARDWARE: None in the spine. CORD AND BASE OF BRAIN: Normal in size and signal intensity. SOFT TISSUES: No soft tissue masses. C1-C2: No significant spinal stenosis. C2-C3: No significant spinal stenosis or exit foraminal stenosis. C3-C4: Small central disc bulge. Mild impingement upon the cord. Borderline spinal stenosis. No ex it foraminal stenosis. C4-C5: Small central disc bulge. No significant spinal stenosis or exit foraminal stenosis. C5-C6: Small central disc bulge. Mild impingement upon the cord. Borderline spinal stenosis. No ex it foraminal stenosis. C6-C7: No significant spinal stenosis or exit foraminal stenosis. C7-T1: Minimal central disc bulge. No significant spinal stenosis or exit foraminal stenosis. UPPER THORACIC: Incompletely imaged. No significant spinal stenosis or exit foraminal stenosis. OTHER: No other significant finding. IMPRESSION: MULTILEVEL DEGENERATIVE DISC DISEASE DESCRIBED. TECHNICAL DOCUMENTATION: JOB ID: [id number] 2010 [employer]- All Rights Reserved Reading location - IP/workstation name: [email or web address]
== END ==
LOC: RAD 10:17
PROVIDERS: ATTEND Internal Medicine
DX: M50.13 Cervical disc disorder with radiculopathy, cervicothoracic region (principal)
CPT/HCPCS: 72141

== ENCOUNTER 2019-09-25 17:51 | Observation (INO) | payer MEDICARE, MEDICAID ==
[2019-09-25] MEDS: POTASSIUM CHLORIDE 20 MEQ/50 ML RTU IV SCH ×3 (19:05→23:36)
--- NOTE | 2019-09-25 19:45 | PDOC H&P ---
History of Present Illness Admission Date/PCP: 09/25/19 17:51 GUERO BRIAN MD History of Present Illness: JOVAN KERN is a 44 year old male, He has systemic lupus erythematosus, he went to urgent care for evaluation, blood was drawn, he was found to have severe hypokalemia, less than 2.5, patient was called from home to go to the emergency room for treatment. He came to the office rather than go to the ER. He stated that he has been having difficulty with his potassium, he follows with ophthalmic dispenser for his lupus, he is on immunosuppressive therapy, he is also on anticoagulant I believe for not exactly sure why intracardiac thrombus. Patient was admitted for observation to be treated with IV potassium replacement therapy and also to evaluate for why he has persistent hypokalemia Past Medical History Pulmonary Medical History: Reports: Pneumonia - INFANT X7 Neurological Medical History: Reports: Migraine, Seizures - CONVULSIONS DISORDER/neuro recently r/o seizure disorder GI Medical History: Reports: Gastroesophageal Reflux Disease Musculoskeltal Medical History: Reports: Arthritis - rheumatoid Psychiatric Medical History: Reports: Depression - PTSD Past Surgical History Past Surgical History: Reports: Orthopedic Surgery - left foot, left wrist, ganglion cyst Social History Smoking Status: Current Some Day Smoker Electronic Cigarette use?: No Number of Years Smokin Last Time Smoked: 09/23/2019 Frequency of Alcohol Use: Rare Hx Recreational Drug Use: No Drugs: None Hx Prescription Drug Abuse: No Family History Family History: None Parental Family History Reviewed: Yes Children Family History Reviewed: Yes Sibling(s) Family History Reviewed.: Yes Medication/Allergy Home Medications: Apixaban [Eliquis 5 mg Tablet] 5 mg PO BID 09/26/19 Dicyclomine HCl [Bentyl 20 mg Tablet] 20 mg PO TID 09/26/19 Glycopyrrolate 2 mg PO BID 09/26/19 Hydroxychloroquine Sulfate [Plaquenil 200 mg Tablet] 200 mg PO BID 09/26/19 Methotrexate Sodium [Rheumatrex 2.5 mg Tablet] 10 mg PO MO@1000 09/26/19 Mycophenolate Mofetil 500 mg PO BID 09/26/19 Omeprazole 20 mg PO DAILY 09/26/19 Prednisone [Deltasone 5 mg Tablet] 5 mg PO DAILY 09/26/19 Venlafaxine HCl ER [Effexor Xr 37.5 mg Cap.sr] 37.5 mg PO DAILY 09/26/19 Vortioxetine Hydrobromide [Brintellix] 40 mg PO BID 09/26/19 Allergies/Adverse Reactions: morphine Allergy (Intermediate, Verified 02/01/19 15:49) Facial swelling diphenhydramine [From Benadryl] Allergy (Verified 02/01/19 15:49) divalproex sodium [From Depakote] Allergy (Verified 02/01/19 15:49) levetiracetam [From Keppra] Allergy (Verified 02/01/19 15:49) Hives meperidine [From Demerol] Allergy (Verified 02/01/19 15:49) Penicillins Allergy (Verified 02/01/19 15:49) red dye Allergy (Verified 02/01/19 15:49) yellow dye Allergy (Verified 02/01/19 15:49) pine Allergy (Uncoded 02/01/19 15:49) Review of Systems Constitutional: PRESENT: weakness Eyes: ABSENT: visual disturbances Ears: ABSENT: hearing changes Cardiovascular: ABSENT: chest pain, dyspnea on exertion, edema, orthropnea, palpitations Respiratory: ABSENT: cough, hemoptysis Gastrointestinal: ABSENT: abdominal pain, constipation, diarrhea, hematemesis, hematochezia, nausea, vomiting Genitourinary: ABSENT: dysuria, hematuria Musculoskeletal: ABSENT: joint swelling Integumentary: ABSENT: rash, wounds Neurological: ABSENT: abnormal gait, abnormal speech, confusion, dizziness, focal weakness, syncope Psychiatric: ABSENT: anxiety, depression, homidical ideation, suicidal ideation Endocrine: ABSENT: cold intolerance, heat intolerance, menstrual abnormalities, polydipsia, polyuria Hematologic/Lymphatic: ABSENT: easy bleeding, easy bruising, lymphadenopathy Physical Exam Vital Signs: Temp Pulse Resp BP Pulse Ox 98.5 F 92 18 100/68 98 09/25/19 18:09 09/25/19 18:09 09/25/19 18:09 09/25/19 18:09 09/25/19 18:09 Intake & Output 09/24/19 09/25/19 09/26/19 06:59 06:59 06:59 Weight 79.4 kg General appearance: PRESENT: no acute distress, well-developed, well-nourished Head exam: PRESENT: atraumatic, normocephalic Eye exam: PRESENT: conjunctiva pink, EOMI, PERRLA Ear exam: PRESENT: normal external ear exam Mouth exam: PRESENT: moist, tongue midline Neck exam: PRESENT: full ROM Respiratory exam: PRESENT: clear to auscultation ivonne Cardiovascular exam: PRESENT: RRR, +S1, +S2 Pulses: PRESENT: normal dorsalis pedis pul, +2 pedal pulses bilateral Vascular exam: PRESENT: normal capillary refill GI/Abdominal exam: PRESENT: normal bowel sounds, soft Rectal exam: PRESENT: deferred Neurological exam: PRESENT: alert, awake, oriented to person, oriented to place, oriented to time, oriented to situation, CN II-XII grossly intact Psychiatric exam: PRESENT: appropriate affect, normal mood Skin exam: PRESENT: dry, intact, warm Assessment & Plan - Diagnosis (1) Hypokalemia Is this a current diagnosis for this admission?: Yes Plan: He has no diarrhea no vomiting, 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
[2019-09-25 20:10] LABS: ALBUMIN 4.3 g/dL (3.5-5.0); ALKALINE PHOSPHATASE 84 U/L (38-126); ANION GAP 6 (5-19); ASPARTATE AMINO TRANSFERASE 28 U/L (17-59); BILIRUBIN,DIRECT 0.1 mg/dL (0.0-0.4); BILIRUBIN,TOTAL 0.7 mg/dL (0.2-1.3); BLOOD UREA NITROGEN 14 mg/dL (7-20); CARBON DIOXIDE 33 mmol/L (22-30); CHLORIDE 95 mmol/L (98-107); GLUCOSE 159 mg/dL (75-110); TOTAL PROTEIN 7.9 g/dL (6.3-8.2)
[2019-09-26 05:48] LABS: ALBUMIN 3.6 g/dL (3.5-5.0); ALKALINE PHOSPHATASE 66 U/L (38-126); ANION GAP 5 (5-19); ASPARTATE AMINO TRANSFERASE 28 U/L (17-59); BILIRUBIN,TOTAL 0.5 mg/dL (0.2-1.3); BLOOD UREA NITROGEN 16 mg/dL (7-20); CALCIUM 8.3 mg/dL (8.4-10.2); CARBON DIOXIDE 31 mmol/L (22-30); CHLORIDE 97 mmol/L (98-107); GLUCOSE 163 mg/dL (75-110); TOTAL PROTEIN 6.9 g/dL (6.3-8.2)
[2019-09-26 06:05] LABS: POTASSIUM 2.8 mmol/L (3.6-5.0)
[2019-09-26] MEDS: POTASSIUM CHLORIDE 20 MEQ/50 ML RTU IV SCH ×4 (06:51→17:55)
[2019-09-26] MEDS ORDERED: VORTIOXETINE HYDROBROMIDE 40 MG PO SCH (13:15)
[2019-09-26] MEDS ORDERED: MYCOPHENOLATE MOFETIL 500 MG PO SCH (13:15)
[2019-09-26 14:01] LABS: ALKALINE PHOSPHATASE 73 U/L (38-126); ANION GAP 5 (5-19); ASPARTATE AMINO TRANSFERASE 35 U/L (17-59); BILIRUBIN,TOTAL 0.7 mg/dL (0.2-1.3); BLOOD UREA NITROGEN 14 mg/dL (7-20); CALCIUM 8.8 mg/dL (8.4-10.2); CARBON DIOXIDE 32 mmol/L (22-30); CHLORIDE 98 mmol/L (98-107); GLUCOSE 125 mg/dL (75-110); POTASSIUM 3.2 mmol/L (3.6-5.0); TOTAL PROTEIN 7.6 g/dL (6.3-8.2)
[2019-09-26] MEDS: DICYCLOMINE HCL 20 MG TABLET PO SCH ×2 (14:39→17:54)
[2019-09-26] MEDS: HYDROXYCHLOROQUINE SULFATE 200 MG TABLET PO SCH ×2 (14:40→22:01)
[2019-09-26] MEDS: PREDNISONE 5 MG TABLET PO SCH (14:41)
[2019-09-26] MEDS: MYCOPHENOLATE MOFETIL 250 MG CAPSULE PO SCH (14:43)
[2019-09-26] MEDS: PANTOPRAZOLE SODIUM 20 MG TABLET.DR PO SCH (14:46)
[2019-09-26] MEDS: GLYCOPYRROLATE 1 MG TABLET PO SCH (22:01)
[2019-09-26] MEDS: APIXABAN 5 MG TABLET PO SCH (22:01)
[2019-09-26 22:17] LABS: ANION GAP 5 (5-19); BLOOD UREA NITROGEN 15 mg/dL (7-20); CALCIUM 8.5 mg/dL (8.4-10.2); CARBON DIOXIDE 34 mmol/L (22-30); CHLORIDE 97 mmol/L (98-107); GLUCOSE 107 mg/dL (75-110); POTASSIUM 3.7 mmol/L (3.6-5.0)
[2019-09-27] MEDS ORDERED: VENLAFAXINE HCL 37.5 MG CAP.SR.24H PO SCH (10:00)
[2019-09-27] MEDS: PANTOPRAZOLE SODIUM 20 MG TABLET.DR PO SCH (10:41)
[2019-09-27] MEDS: APIXABAN 5 MG TABLET PO SCH (10:41)
[2019-09-27] MEDS: PREDNISONE 5 MG TABLET PO SCH (10:42)
[2019-09-27] MEDS: DICYCLOMINE HCL 20 MG TABLET PO SCH (10:42)
[2019-09-27] MEDS: GLYCOPYRROLATE 1 MG TABLET PO SCH (10:43)
[2019-09-27] MEDS: HYDROXYCHLOROQUINE SULFATE 200 MG TABLET PO SCH (10:43)
[2019-09-27] MEDS: MYCOPHENOLATE MOFETIL 250 MG CAPSULE PO SCH (10:44)
--- NOTE | 2019-09-27 12:20 | PDOC DISCHARGE SUMMARY ---
Impression - Admit/DC Date/PCP Admission Date/Primary Care Provider: 09/25/19 17:51 GUERO BRIAN MD Discharge Date: 09/27/19 - Discharge Diagnosis (1) Hypokalemia Is this a current diagnosis for this admission?: Yes (2) SLE (systemic lupus erythematosus related syndrome) Is this a current diagnosis for this admission?: Yes - Additional Information Discharge Diet: Regular Discharge Activity: Activity As Tolerated Referrals: GUERO BRIAN MD [Primary Care Provider] - Prescriptions: Spironolactone [Aldactone] 50 mg PO DAILY #90 tablet Home Medications: Apixaban [Eliquis 5 mg Tablet] 5 mg PO BID 09/26/19 Dicyclomine HCl [Bentyl 20 mg Tablet] 20 mg PO TID 09/26/19 Glycopyrrolate 2 mg PO BID 09/26/19 Hydroxychloroquine Sulfate [Plaquenil 200 mg Tablet] 200 mg PO BID 09/26/19 Methotrexate Sodium [Rheumatrex 2.5 mg Tablet] 10 mg PO MO@1000 09/26/19 Mycophenolate Mofetil 500 mg PO BID 09/26/19 Omeprazole 20 mg PO DAILY 09/26/19 Prednisone [Deltasone 5 mg Tablet] 5 mg PO DAILY 09/26/19 Venlafaxine HCl ER [Effexor Xr 37.5 mg Cap.sr] 37.5 mg PO DAILY 09/26/19 Vortioxetine Hydrobromide [Trintellix] 40 mg PO BID 09/26/19 Spironolactone [Aldactone] 50 mg PO DAILY #90 tablet 09/27/19 History of Present Illiness History of Present Illness: JOVAN KERN is a 44 year old male, He has systemic lupus erythematosus, he went to urgent care for evaluation, blood was drawn, he was found to have severe hypokalemia, less than 2.5, patient was called from home to go to the emergency room for treatment. He came to the office rather than go to the ER. 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 Patient was admitted for observation to be treated with IV potassium replacement therapy and also to evaluate for why he has persistent hypokalemia Hospital Course Hospital Course: Patient was admitted for the management of persistent hypokalemia, he received multiple doses of K riders for the correction of the hypokalemia. 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 Physical Exam Vital Signs: Temp Pulse Resp BP Pulse Ox 98.1 F 69 18 106/70 100 09/27/19 11:55 09/27/19 11:55 09/27/19 11:55 09/27/19 11:55 09/27/19 11:55 Intake & Output 09/26/19 09/27/19 09/28/19 06:59 06:59 06:59 Intake Total 850 1488 345 Output Total 1290 2530 Balance -440 -1042 345 Weight 79.2 kg 85.8 kg General appearance: PRESENT: no acute distress Eye exam: PRESENT: PERRLA Respiratory exam: PRESENT: clear to auscultation ivonne Cardiovascular exam: PRESENT: +S1, +S2 GI/Abdominal exam: PRESENT: soft Neurological exam: PRESENT: alert, CN II-XII grossly intact Results Laboratory Results: Sodium 136.1 mmol/L (137-145) L 09/26/19 21:39 Potassium 3.7 mmol/L (3.6-5.0) 09/26/19 21:39 Chloride 97 mmol/L (98-107) L 09/26/19 21:39 Carbon Dioxide 34 mmol/L (22-30) H 09/26/19 21:39 Anion Gap 5 (5-19) 09/26/19 21:39 BUN 15 mg/dL (7-20) 09/26/19 21:39 Creatinine 1.16 mg/dL (0.52-1.25) 09/26/19 21:39 Est GFR ( Amer) > 60 (>60) 09/26/19 21:39 Est GFR (MDRD) Non-Af > 60 (>60) 09/26/19 21:39 Glucose 107 mg/dL (75-110) 09/26/19 21:39 Calcium 8.5 mg/dL (8.4-10.2) 09/26/19 21:39 Total Bilirubin 0.7 mg/dL (0.2-1.3) 09/26/19 13:33 Direct Bilirubin 0.0 mg/dL (0.0-0.4) 09/26/19 13:33 Neonat Total Bilirubin Not Reportable 09/26/19 13:33 Neonat Direct Bilirubin Not Reportable 09/26/19 13:33 Neonat Indirect Bili Not Reportable 09/26/19 13:33 AST 35 U/L (17-59) 09/26/19 13:33 ALT 49 U/L (<50) 09/26/19 13:33 Alkaline Phosphatase 73 U/L (38-126) 09/26/19 13:33 Total Protein 7.6 g/dL (6.3-8.2) 09/26/19 13:33 Albumin 4.0 g/dL (3.5-5.0) 09/26/19 13:33 Urine Sodium 99 mmol/L (30-90) H 09/25/19 20:50 Urine Potassium 43.5 mmol/L (17-99) 09/25/19 20:50 Stroke Is this a Stroke Patient?: No Acute Heart Failure - Is this a Heart Failure Patient?: No
[2019-09-27 12:36] VITALS: BP 100/68
[2019-09-28] MEDS ORDERED: METHOTREXATE SODIUM 2.5 MG TABLET PO SCH (10:00)
== END 2019-09-27 13:01 | disposition home or self-care (01) ==
LOC: 4N 17:51
PROVIDERS: ADMIT Internal Medicine; ATTEND Internal Medicine
DX: E87.6 Hypokalemia (principal); M32.9 Systemic lupus erythematosus, unspecified; M06.9 Rheumatoid arthritis, unspecified; F32.9 Major depressive disorder, single episode, unspecified; F17.200 Nicotine dependence, unspecified, uncomplicated; Z79.899 Other long term (current) drug therapy; Z79.02 Long term (current) use of antithrombotics/antiplatelets
CPT/HCPCS: 36415 ×2; 82088 ×2; 84244; 84133; 84300; 87070; 80053 ×2; G0378 ×3; G0379; A9270 ×15; J3480 ×2; J3490; J7512; J7517

== ENCOUNTER → 2020-01-18 | Outpatient (CLI) | payer MEDICARE, MEDICAID ==
--- NOTE | 2020-01-18 13:24 | RADIOLOGY REPORT (SQ) ---
EXAM DESCRIPTION: MRI HEAD WITHOUT IMAGES COMPLETED DATE/TIME: 01/18/2020 12:47 pm REASON FOR STUDY: (I63.9)CEREBRAL INFARCTION, UNSPECIFIED I63.9 CEREBRAL INFARCTION, UNSPECIFIED COMPARISON: 05/23/2016 TECHNIQUE: Multiplanar imaging includes non-contrasted T1, T2, FLAIR, and diffusion with ADC map seq uences. Images stored on PACS. LIMITATIONS: None. FINDINGS: ANATOMY: No anomalies. Normal vascular flow voids. Pituitary fossa normal. CSF SPACES: Normal in size and contour. No hemorrhage. CEREBRUM: Sulci and gyri normal in size and contour. Normal white matter signal on FLAIR imaging. No evidence of hemorrhage, mass, or extraaxial fluid collection. POSTERIOR FOSSA: No signal alteration. No hemorrhage. No edema, masses or mass effect. Internal lupis tory canals, cerebello-pontine angles, mastoids normal. DIFFUSION IMAGING: Negative for acute or sub-acute infarction. ORBITS: No masses. Globes normal. PARANASAL SINUSES: No fluid levels. Mucosa normal. OTHER: No other significant finding. IMPRESSION: NORMAL MRI OF THE BRAIN WITHOUT INTRAVENOUS GADOLINIUM CONTRAST. EVIDENCE OF ACUTE STROKE: NO. TECHNICAL DOCUMENTATION: JOB ID: [id number] 2010 [employer]- All Rights Reserved Reading location - IP/workstation name: [email or web address]
== END ==
LOC: RAD 11:43
PROVIDERS: ATTEND Internal Medicine
DX: I63.9 Cerebral infarction, unspecified (principal)
CPT/HCPCS: 70551

== ENCOUNTER → 2020-02-25 | Outpatient (CLI) | payer MEDICARE, MEDICAID ==
[2020-02-25 18:37] LABS: ALBUMIN 4.2 g/dL (3.5-5.0); ALKALINE PHOSPHATASE 106 U/L (38-126); ANION GAP 7 (5-19); ASPARTATE AMINO TRANSFERASE 31 U/L (17-59); BILIRUBIN,DIRECT 0.2 mg/dL (0.0-0.4); BILIRUBIN,TOTAL 0.7 mg/dL (0.2-1.3); BLOOD UREA NITROGEN 12 mg/dL (7-20); CALCIUM 9.1 mg/dL (8.4-10.2); CARBON DIOXIDE 35 mmol/L (22-30); CHLORIDE 92 mmol/L (98-107); GLUCOSE 115 mg/dL (75-110); POTASSIUM 3.3 mmol/L (3.6-5.0); TOTAL PROTEIN 7.7 g/dL (6.3-8.2)
== END ==
LOC: OD 16:55
PROVIDERS: ATTEND Internal Medicine
DX: E87.5 Hyperkalemia (principal)
CPT/HCPCS: 36415; 80053; 84244